=== PATIENT | female | born 1970 | race Caucasian/White ===

== ENCOUNTER 2017-02-24 08:44 | Emergency (ER) | payer BC ==
[~2017-02-24 08:44] MED LIST: ALPR0.5T PO; ARIP10TA13 PO; ASPI81TA9 PO; AZIT250T6 PO; CITA20TA9 PO; FAMO20TA5 PO; HYDR-971 PO; LEVO125T5 PO; METF500T4 PO; METH36TA5 PO; ONDA4TAB10 PO; PANT40TA3 PO; PHEN16.277 PO; PROM12.56 PO; PROM25SU32 RC; PROP60CA8 PO; TOPI25TA32 PO; erythromycin PO
[2017-02-24 09:21] LABS: BILIRUBIN,URINE NEG (NEG); CLARITY,URINE CLEAR; COLOR,URINE YELLOW; GLUCOSE,URINE NEG (NEG); NITRITE,URINE NEG (NEG); UROBILINOGEN,URINE 0.2 mg/dL (0.2 mg/dL)
[2017-02-24 09:26] LABS: BASO # 0.1 x10^3/uL (0.0-0.2); BASO % 1 % (0-3); EOS # 0.4 x10^3/uL (0.0-0.7); EOS % 3 % (0-3); HEMATOCRIT 40.8 % (36.0-47.0); HEMOGLOBIN 13.1 g/dL (12.0-15.5); LYMPH # 2.2 x10^3/uL (1.0-4.8); LYMPH % 16 % (24-48); MEAN CORPUSCULAR HEMOGLOBIN 26 pg (25-35); MEAN CORPUSCULAR HGB CONC 32 g/dL (31-37); MEAN CORPUSCULAR VOLUME 82 fL (79-100); MONO # 0.6 x10^3/uL (0.0-1.1); MONO % 4 % (0-9); NEUT # 10.2 x10^3uL (1.8-7.7); NEUT % 76 % (31-73); PLATELET COUNT 298 x10^3/uL (140-400); RED BLOOD COUNT 4.99 x10^6/uL (3.50-5.40); RED CELL DISTRIBUTION WIDTH 15.3 % (11.5-14.5); WHITE BLOOD COUNT 13.4 x10^3/uL (4.0-11.0)
[2017-02-24 09:28] LABS: ALK PHOS 68 U/L (46-116); ALT (SGPT) 190 U/L (14-59); AST (SGOT) 101 U/L (15-37); LIPASE 83 U/L (73-393)
[2017-02-24] MEDS ORDERED: METOCLOPRAMIDE HCL 10 MG/2 ML VIAL. IV ONE (09:30)
[2017-02-24] MEDS ORDERED: IV NORMAL SALINE 1,000ML 1,000 ML IV ONE (09:30)
[2017-02-24] MEDS ORDERED: LORAZEPAM 2 MG/ML VIAL IV ONE (09:30)
[2017-02-24] MEDS ORDERED: KETOROLAC 15 MG/ML VIAL. ONE (09:48)
--- NOTE | 2017-02-24 09:48 | RAD ---
PROCEDURE Acute abdomen radiographs. HISTORY Left lower quadrant pain and vomiting for more than 48 hours COMPARISON None available FINDINGS Single-view of the chest and single supine and upright views of the abdomen are submitted. There is no lobar infiltrate, pleural fluid, pneumothorax. No free air is identified. There has been cholecystectomy. Calcifications in the bilateral pelvis are more likely due to phleboliths. There is a small focus of round opacity of the right abdomen although not believed to be in the kidney. There is an overall nonobstructive bowel gas pattern. IMPRESSION There is no infiltrate. There is a nonobstructive bowel gas pattern. Electronically signed by: Kvng Kirkland MD (Feb 24, 2017 09:46:18)
[2017-02-24] MEDS ORDERED: KETOROLAC 15 MG/ML VIAL. IV ONE (10:15)
[2017-02-24 10:30] VITALS: BP 122/72
--- NOTE | 2017-02-24 12:47 | ED.ADGEN ---
Past History Past Medical History: Anxiety, Bipolar, Constipation, Depression, Diabetes, Hypertension, Hypothyroid, Sinusitis, Other Past Surgical History: Cholecystectomy, Hysterectomy, Tonsillectomy, Tubal ligation Smoking: Non-smoker Alcohol Use: None Drug Use: None Adult General HPI HPI Patient is a 46-year-old female presents emergency department complaining of nausea, vomiting, and abdominal pain. Patient has a history of gastroparesis. Her symptoms are consistent with that. She has been using her Zofran and without satisfactory relief. She reports some diarrhea the last 24 hours but denies any fever or chills. Review of Systems Review of Systems Constitutional: Denies fever or chills [] Eyes: Denies change in visual acuity, redness, or eye pain [] HENT: Denies nasal congestion or sore throat [] Respiratory: Denies cough or shortness of breath [] Cardiovascular: No additional information not addressed in HPI [] GI: Denies abdominal pain, nausea, vomiting, bloody stools or diarrhea [] : Denies dysuria or hematuria [] Musculoskeletal: Denies back pain or joint pain [] Integument: Denies rash or skin lesions [] Neurologic: Denies headache, focal weakness or sensory changes [] Endocrine: Denies polyuria or polydipsia [] Current Medications Current Medications Current Medications Medications (Trade) Dose Ordered Sig/Shanita Start Time Stop Time Status Last Admin Dose Admin Ketorolac Tromethamine (Toradol) 15 mg 1X ONCE 02/24/17 10:15 02/24/17 10:17 DC 02/24/17 09:50 15 MG Lorazepam (Ativan) 1 mg 1X ONCE 02/24/17 09:30 02/24/17 09:31 DC 02/24/17 09:15 1 MG Metoclopramide HCl (Reglan) 10 mg 1X ONCE 02/24/17 09:30 02/24/17 09:31 DC 02/24/17 09:15 10 MG Sodium Chloride (Iv Sodium Chloride 0.9% 1,000ml) 1,000 ml @ 1,000 mls/hr 1X ONCE 02/24/17 09:30 02/24/17 10:29 DC 02/24/17 09:15 1,000 MLS/HR Allergies Allergies Allergies Coded Allergies Type Severity Reaction Last Updated Verified Penicillins Allergy Unknown Swelling 09/30/14 No Physical Exam Physical Exam Constitutional: Well developed, well nourished, no acute distress, non-toxic appearance. [] HENT: Normocephalic, atraumatic, bilateral external ears normal, oropharynx moist, no oral exudates, nose normal. [] Eyes: PERRLA, EOMI, conjunctiva normal, no discharge. [] Neck: Normal range of motion, no tenderness, supple, no stridor. [] Cardiovascular:Heart rate regular rhythm, no murmur [] Lungs & Thorax: Bilateral breath sounds clear to auscultation [] Abdomen: Bowel sounds normal, soft, epigastric tenderness palpation without peritoneal signs, no masses, no pulsatile masses. [] Skin: Warm, dry, no erythema, no rash. [] Back: No tenderness, no CVA tenderness. [] Extremities: No tenderness, no cyanosis, no clubbing, ROM intact, no edema. [] Neurologic: Alert and oriented X 3, normal motor function, normal sensory function, no focal deficits noted. [] Psychologic: Affect normal, judgement normal, mood normal. [] Current Patient Data Vital Signs Vital Signs Date Time Temp Pulse Resp B/P Pulse Ox O2 Delivery O2 Flow Rate FiO2 02/24/17 08:47 98.4 90 18 96 Room Air Lab Results Laboratory Tests Test 02/24/17 08:58 02/24/17 09:00 Urine Collection Type Unknown Urine Color Yellow Urine Clarity Clear Urine pH 5.5 Urine Specific [place] 1.020 Urine Protein 30 mg/dl (NEG-TRACE) Urine Glucose (UA) Negmg/dL (NEG) Urine Ketones (Stick) Negmg/dL (NEG) Urine Blood Neg (NEG) Urine Nitrite Neg (NEG) Urine Bilirubin Neg (NEG) Urine Urobilinogen Dipstick 0.2mg/dL (0.2 mg/dL) Urine Leukocyte Esterase Neg (NEG) White Blood Count 13.4x10^3/uL (4.0-11.0) H Red Blood Count 4.99x10^6/uL (3.50-5.40) Hemoglobin 13.1g/dL (12.0-15.5) Hematocrit 40.8% (36.0-47.0) Mean Corpuscular Volume 82fL (79-100) Mean Corpuscular Hemoglobin 26pg (25-35) Mean Corpuscular Hemoglobin Concent 32g/dL (31-37) Red Cell Distribution Width 15.3% (11.5-14.5) H Platelet Count 298x10^3/uL (140-400) Neutrophils (%) (Auto) 76% (31-73) H Lymphocytes (%) (Auto) 16% (24-48) L Monocytes (%) (Auto) 4% (0-9) Eosinophils (%) (Auto) 3% (0-3) Basophils (%) (Auto) 1% (0-3) Neutrophils # (Auto) 10.2x10^3uL (1.8-7.7) H Lymphocytes # (Auto) 2.2x10^3/uL (1.0-4.8) Monocytes # (Auto) 0.6x10^3/uL (0.0-1.1) Eosinophils # (Auto) 0.4x10^3/uL (0.0-0.7) Basophils # (Auto) 0.1x10^3/uL (0.0-0.2) Aspartate Amino Transferase (AST) 101U/L (15-37) H Alanine Aminotransferase (ALT) 190U/L (14-59) H Alkaline Phosphatase 68U/L (46-116) Lipase 83U/L (73-393) EKG EKG [] Radiology/Procedures Radiology/Procedures PROCEDURE Acute abdomen radiographs. HISTORY Left lower quadrant pain and vomiting for more than 48 hours COMPARISON None available FINDINGS Single-view of the chest and single supine and upright views of the abdomen are submitted. There is no lobar infiltrate, pleural fluid, pneumothorax. No free air is identified. There has been cholecystectomy. Calcifications in the bilateral pelvis are more likely due to phleboliths. There is a small focus of round opacity of the right abdomen although not believed to be in the kidney. There is an overall nonobstructive bowel gas pattern. IMPRESSION There is no infiltrate. There is a nonobstructive bowel gas pattern. Electronically signed by: Kvng Spear MD (Feb 24, 2017 09:46:18) DICTATED AND SIGNED BY: KAYDEN SPEAR MD DATE: 02/24/17 0946 CC: NATALEE BENITO MD; CHELY HUITRON MD ~ [] Course & Med Decision Making Course & Med Decision Making Pertinent Labs and Imaging studies reviewed. (See chart for details) The patient received Reglan, Ativan, and Toradol here in emergency Department with good effect. Labs and x-ray were reassuring. Patient was discharged home with prescription for Reglan. She was also given supportive care and follow-up instructions. She will return emergency department sooner she develops new or worsening symptoms. [] Final Impression Final Impression Gastroparesis [] Problems: Dragon Disclaimer Dragon Disclaimer This electronic medical record was generated, in whole or in part, using a voice recognition dictation system. NATALEE BENITO MD Feb 24, 2017 12:47
[2017-02-24 13:42] LABS: HEMOGLOBIN ISTAT 14.3 gm/dL; POTASSIUM ISTAT 4.2 mmol/L (3.5-5.0)
== END 2017-02-24 11:07 | disposition home or self-care (01) ==
LOC: ER 08:44
DX: K31.84 Gastroparesis (principal); E03.9 Hypothyroidism, unspecified; E11.9 Type 2 diabetes mellitus without complications; I10 Essential (primary) hypertension; Z90.49 Acquired absence of other specified parts of digestive tract; Z90.710 Acquired absence of both cervix and uterus; Z98.51 Tubal ligation status; Z88.0 Allergy status to penicillin
CPT/HCPCS: 36415; 74022; 80047; 81003; 83690; 84075; 84450; 84460; 85027; 96361; 96374; 96375; 99285; J1885; J2060; J2765; J7030

== ENCOUNTER 2017-04-04 21:53 | Emergency (ER) | payer BC ==
[~2017-04-04] VITALS: Ht 157.5 cm; Wt 81.2 kg
[~2017-04-04 21:53] MED LIST changes: -ARIP10TA13 PO; +ARIP10TA9 PO; +ASPI-612 PO; -ASPI81TA9 PO; -TOPI25TA32 PO; +TOPI25TA52 PO
[2017-04-04] MEDS ORDERED: MORP15TA PO (22:59)
--- NOTE | 2017-04-04 22:59 | PHYS DOC ---
Past History Past Medical History: Anxiety, Bipolar, Constipation, Depression, Diabetes, Hypertension, Hypothyroid, Sinusitis, Other Past Surgical History: Cholecystectomy, Hysterectomy, Tonsillectomy, Tubal ligation Smoking: Non-smoker Alcohol Use: None Drug Use: None Adult General Chief Complaint Chief Complaint: ANKLE PROBLEM HPI HPI 47-year-old female presenting to the emergency department with left knee pain and left ankle pain. She reports being in a sheth recently and is today she slipped and injured her ankle. She placed the injury in a brace and was trying to soak it in a pool when she fell a second time and injured her left knee. Pain is sharp moderate nonradiating and without alleviating factors. She placed in a brace which improved her pain minimally. She denies any associated symptoms. Review of systems is negative for chest pain shortness of breath. She denies hip pain. She denies syncope or loss of consciousness head injury or neck pain. All other review of systems is negative unless otherwise noted in history of present illness. Review of Systems Review of Systems SEE ABOVE. Allergies Allergies Allergies Coded Allergies Type Severity Reaction Last Updated Verified Penicillins Allergy Intermediate Swelling 04/04/17 No ketorolac Allergy Intermediate 04/04/17 Yes Physical Exam Physical Exam Constitutional: Well developed, well nourished, no acute distress, non-toxic appearance. HENT: Normocephalic, atraumatic, bilateral external ears normal, oropharynx moist, no oral exudates, nose normal. [] Eyes: PERRLA, EOMI, conjunctiva normal, no discharge. [] Neck: Normal range of motion, no tenderness, supple, no stridor. Cardiovascular:Heart rate regular rhythm, no murmur [] Lungs & Thorax: Bilateral breath sounds clear to auscultation [] Abdomen: Bowel sounds normal, soft, no tenderness, no masses, no pulsatile masses. Skin: Warm, dry, no erythema, no rash. Back: No tenderness, no CVA tenderness. [] Extremities: Left knee is normal in color without erythema. Mild effusion present. Mild tenderness in the medial portion of the knee. Otherwise no lacerations. Skin is intact. The left ankle has mild swelling with tenderness palpation over the lateral malleolus. No ecchymosis. No lacerations. Skin is intact. 2 second cap refill distally with palpable pulse. Normal motor and sensory function of the foot. Otherwise remainder of the extremities are nontender with normal range of motion and atraumatic. Neurologic: Alert and oriented X 3, normal motor function, normal sensory function, no focal deficits noted. Psychologic: Affect normal, judgement normal, mood normal. [] EKG EKG [] Radiology/Procedures Radiology/Procedures X-rays of the left knee and ankle were reviewed by myself and showed no obvious fracture. There is a small lucency just next to the lateral malleolus on the ankle x-ray that could suggest a small avulsion fracture. [] Course & Med Decision Making Course & Med Decision Making Pertinent Labs and Imaging studies reviewed. (See chart for details) [] 47-year-old female presenting with left knee pain and left ankle pain. X- rays obtained. Knee x-ray unremarkable. Left ankle x-ray possible avulsion fracture. Patient was placed in [place] wrap and a knee immobilizer. Crutches were given for ambulation assistance. Pain medications prescribed. Patient to follow up with PCP. The patient was then discharged home in stable condition to follow up with their primary care physician over the next 2-3 days. They were to return if their symptoms worsened or if they were concerned for any reason. Face -to-face discharge instructions and return precautions were given. Patient's questions were answered to their satisfaction. Patient is comfortable plan. Dragon Disclaimer Dragon Disclaimer This chart was dictated in whole or in part using Voice Recognition software in a busy, high-work load, and often noisy Emergency Department environment. It may contain unintended and wholly unrecognized errors or omissions. Departure Departure: Impression: Primary Impression: Left knee pain Additional Impression: Left ankle pain Disposition: 01 HOME, SELF-CARE Condition: STABLE Referrals: CHELY HUITRON MD (PCP) Patient Instructions: Ankle Sprain, Knee Bracing, Knee Pain Additional Instructions: Thank you for allowing us to participate in your care today. Followup with your primary care physician in 3 days if your symptoms do not improve. If you do not have a primary care provider you can ask for a list of our primary care providers. Return to the emergency department you have any new or concerning findings. This should be evaluated by the primary care physician and any necessary consulting services for continued management within a few days after discharge. Return to emergency room if you have any new or concerning symptoms including but not limited to fever, chills, nausea, vomiting, intractable pain, any new rashes, chest pain, shortness of air, uncontrolled bleeding, difficulty breathing, and/or vision loss. You may have been prescribed medication that can change in your level of thinking and ability to operate machinery. These medications include hydrocodone and Ativan. Also, Benadryl has been known to do this as well. Be sure to check with your pharmacist and ask if the medications you've prescribed can affect your level of consciousness. I recommend not operating heavy machinery or driving while on medication such as these. Scripts Morphine Sulfate (MORPHINE SULFATE) 15 Mg Tablet 1 TAB PO PRN Q8HRS Y for SEVERE PAIN, #8 TAB Be careful as this medication may make you sleepy or drowsy. Do not drive or operate heavy machinery on this medication. Be sure to ask the pharmacist about other side effects that can exist such as constipation. Prov: ANA LUISA CASTRO MD 04/04/17 Problem Qualifiers Primary Impression: Left knee pain Chronicity: acute Qualified Codes: M25.562 - Pain in left knee Additional Impression: Left ankle pain Chronicity: acute Qualified Codes: M25.572 - Pain in left ankle and joints of left foot ANA LUISA CASTRO MD April 04, 2017 22:59
[2017-04-04 23:03] VITALS: BP 138/96
--- NOTE | 2017-04-05 07:44 | RAD ---
Left ankle, 3 views, 04/04/2017: History: Injury, pain There is a small calcific density at the tip of the medial malleolus. Its margins are smooth and appear well corticated. This is probably an old nonunited fracture fragment. No definite acute fracture or dislocation is seen. There is mild diffuse soft tissue swelling about the ankle. IMPRESSION: Small fracture fragment at the tip of the medial malleolus which is probably old.
--- NOTE | 2017-04-05 07:49 | RAD ---
Left knee, 3 views, 04/04/2017: History: Injury, knee pain No fracture or dislocation is identified. The joint space is well-preserved. IMPRESSION: No acute bony abnormality is detected.
== END 2017-04-04 23:00 | disposition home or self-care (01) ==
LOC: ER 21:59
DX: M25.562 Pain in left knee (principal); M25.572 Pain in left ankle and joints of left foot; I10 Essential (primary) hypertension; E03.9 Hypothyroidism, unspecified; E11.9 Type 2 diabetes mellitus without complications; F31.9 Bipolar disorder, unspecified; Z88.0 Allergy status to penicillin; Z88.8 Allergy status to other drugs, medicaments and biological substances; W01.0XXA Fall on same level from slipping, tripping and stumbling without subsequent striking against object, initial encounter; Y93.89 Activity, other specified; Y99.8 Other external cause status; Y92.89 Other specified places as the place of occurrence of the external cause
CPT/HCPCS: 29505; 73562; 73610; 99284-25

== ENCOUNTER 2017-07-19 17:43 | Emergency (ER) | payer BC ==
[~2017-07-19] VITALS: Ht 157.5 cm; Wt 81.4 kg
[~2017-07-19 17:43] MED LIST changes: +MORP15TA PO
[2017-07-19] MEDS ORDERED: IV NORMAL SALINE 1,000ML 1,000 ML IV SCH (18:04)
--- NOTE | 2017-07-19 18:06 | PHYS DOC ---
Past History Past Medical History: Diabetes, High Cholesterol, Hypertension, Hypothyroid Past Surgical History: Cholecystectomy, Hysterectomy Smoking: Non-smoker Alcohol Use: None Drug Use: None Adult General Chief Complaint Chief Complaint: ABDOMINAL PAIN HPI HPI Patient is a 47 year old female who presents with recurrent abdominal pain and vomiting. She has "gastroparesis" for which she vomits daily. She also has a baseline abdominal pain that constant. However yesterday it increased. She's had green diarrhea for 2 weeks. No recent travel. She denies marijuana use. No fever or chills. Review of Systems Review of Systems Constitutional: Denies fever or chills Eyes: Denies change in visual acuity, redness, or eye pain HENT: Denies nasal congestion or sore throat Respiratory: Denies cough or shortness of breath Cardiovascular: No chest pain GI: Daily abdominal pain, nausea, vomiting, No bloody stools. : Denies dysuria or hematuria Musculoskeletal: Denies back pain or joint pain Integument: Denies rash or skin lesions Neurologic: Denies headache, focal weakness or sensory changes Allergies Allergies Allergies Coded Allergies Type Severity Reaction Last Updated Verified Penicillins Allergy Intermediate Swelling 04/04/17 No ketorolac Allergy Intermediate 04/04/17 Yes Physical Exam Physical Exam Constitutional: Well developed, well nourished, no acute distress, non-toxic appearance. Rolling around in the bed yelling out in pain. HENT: Normocephalic, atraumatic, bilateral external ears normal, oropharynx moist, no oral exudates, nose normal. Eyes: PERRLA, EOMI, conjunctiva normal, no discharge. Neck: Normal range of motion, no tenderness, supple, no stridor. Cardiovascular:Heart rate regular rhythm, no murmur Lungs & Thorax: Bilateral breath sounds clear to auscultation Abdomen: Bowel sounds normal, soft, minimal tenderness to palpation, no masses, no pulsatile masses. Skin: Warm, dry, no erythema, no rash. Back: No tenderness, no CVA tenderness. Extremities: No tenderness, no cyanosis, no clubbing, ROM intact, no edema. Neurologic: Alert and oriented X 3, normal motor function, normal sensory function, no focal deficits noted. Psychologic: Affect normal, judgement normal, mood normal. Current Patient Data Vital Signs Vital Signs Date Time Temp Pulse Resp B/P (MAP) Pulse Ox O2 Delivery O2 Flow Rate FiO2 07/19/17 17:52 98.4 65 20 99 Room Air Lab Results Laboratory Tests Test 07/19/17 18:13 07/19/17 18:20 Urine Collection Type Unknown Urine Color Yellow Urine Clarity Clear Urine pH 5.5 Urine Specific [place] 1.015 Urine Protein Neg (NEG-TRACE) Urine Glucose (UA) Neg mg/dL (NEG) Urine Ketones (Stick) Neg mg/dL (NEG) Urine Blood Trace (NEG) Urine Nitrite Neg (NEG) Urine Bilirubin Neg (NEG) Urine Urobilinogen Dipstick 0.2 mg/dL (0.2 mg/dL) Urine Leukocyte Esterase Neg (NEG) Urine RBC Occ /HPF (0-2) Urine WBC Occ /HPF (0-4) Urine Squamous Epithelial Cells Many /LPF Urine Bacteria Few /HPF (0-FEW) Urine Mucus Slight /LPF White Blood Count 10.8 x10^3/uL (4.0-11.0) Red Blood Count 4.85 x10^6/uL (3.50-5.40) Hemoglobin 13.0 g/dL (12.0-15.5) Hematocrit 39.4 % (36.0-47.0) Mean Corpuscular Volume 81 fL (79-100) Mean Corpuscular Hemoglobin 27 pg (25-35) Mean Corpuscular Hemoglobin Concent 33 g/dL (31-37) Red Cell Distribution Width 16.2 % (11.5-14.5) Platelet Count 258 x10^3/uL (140-400) Neutrophils (%) (Auto) 61 % (31-73) Lymphocytes (%) (Auto) 31 % (24-48) Monocytes (%) (Auto) 4 % (0-9) Eosinophils (%) (Auto) 3 % (0-3) Basophils (%) (Auto) 1 % (0-3) Neutrophils # (Auto) 6.6 x10^3uL (1.8-7.7) Lymphocytes # (Auto) 3.4 x10^3/uL (1.0-4.8) Monocytes # (Auto) 0.4 x10^3/uL (0.0-1.1) Eosinophils # (Auto) 0.3 x10^3/uL (0.0-0.7) Basophils # (Auto) 0.1 x10^3/uL (0.0-0.2) Sodium Level 139 mmol/L (136-145) Potassium Level 3.7 mmol/L (3.5-5.1) Chloride Level 100 mmol/L (98-107) Carbon Dioxide Level 29 mmol/L (21-32) Anion Gap 10 (6-14) Blood Urea Nitrogen 6 mg/dL (7-20) Creatinine 0.8 mg/dL (0.6-1.0) Estimated GFR (Cockcroft-Gault) 77.2 BUN/Creatinine Ratio 8 (6-20) Glucose Level 93 mg/dL (70-99) Calcium Level 9.8 mg/dL (8.5-10.1) Total Bilirubin 0.6 mg/dL (0.2-1.0) Aspartate Amino Transf (AST/SGOT) 93 U/L (15-37) Alanine Aminotransferase (ALT/SGPT) 116 U/L (14-59) Alkaline Phosphatase 73 U/L (46-116) Total Protein 7.7 g/dL (6.4-8.2) Albumin 3.9 g/dL (3.4-5.0) Albumin/Globulin Ratio 1.0 (1.0-1.7) Lipase 68 U/L (73-393) Course & Med Decision Making Course & Med Decision Making Reviewed prior records. My differential for abdominal pain includes but is not limited to appendicitis; cholelithiasis or cholecystitis; renal stones; ureterolithiasis; pancreatitis; urinary tract infection; bowel obstruction; irritable bowel. IV is established. The last visit she did receive Toradol but listed as an allergy here. There is no mention of allergic reaction the last chart however. She was dosed with Reglan IV along with Benadryl and Dilaudid. At 1930PM: patient is resting comfortably. She is in no distress. Vital signs are normal. Repeat exam with no evidence of acute surgical abdomen. We'll discharge home with her ride. Wrote for Phenergan suppositories as she has nothing to take per rectum when she is vomiting every day. Dragon Disclaimer Dragon Disclaimer This chart was dictated in whole or in part using Voice Recognition software in a busy, high-work load, and often noisy Emergency Department environment. It may contain unintended and wholly unrecognized errors or omissions. Departure Departure: Impression: Primary Impression: Abdominal pain Additional Impression: Cyclical vomiting Disposition: 01 HOME, SELF-CARE Condition: GOOD Referrals: CHELY HUITRON MD (PCP) Patient Instructions: Cyclic Vomiting Syndrome Scripts Promethazine HCl (Phenergan) 25 Mg Supp.rect 25 MG RC PRN Q6-8HRS Y for VOMITING, #14 SUPP.RECT Prov: CAR HULL MD 07/19/17 Problem Qualifiers Primary Impression: Abdominal pain Abdominal location: generalized Qualified Codes: R10.84 - Generalized abdominal pain Additional Impression: Cyclical vomiting Vomiting Intractability: intractable Nausea presence: with nausea Qualified Codes: G43.A1 - Cyclical vomiting, intractable CAR HULL MD Jul 19, 2017 18:06
[2017-07-19] MEDS ORDERED: ONDANSETRON PF 4 MG/2 ML VIAL. IV ONE (18:30)
[2017-07-19] MEDS ORDERED: METOCLOPRAMIDE HCL 10 MG/2 ML VIAL. IV ONE (18:45)
[2017-07-19] MEDS ORDERED: HYDROmorphone PF 1 MG/ML DISP.SYRIN IV ONE (18:45)
[2017-07-19] MEDS ORDERED: diphenhydrAMINE 50 MG/ML VIAL IVP ONE (18:45)
[2017-07-19 18:47] LABS: BASO # 0.1 x10^3/uL (0.0-0.2); BASO % 1 % (0-3); EOS # 0.3 x10^3/uL (0.0-0.7); EOS % 3 % (0-3); HEMATOCRIT 39.4 % (36.0-47.0); LYMPH # 3.4 x10^3/uL (1.0-4.8); LYMPH % 31 % (24-48); MEAN CORPUSCULAR HEMOGLOBIN 27 pg (25-35); MEAN CORPUSCULAR HGB CONC 33 g/dL (31-37); MEAN CORPUSCULAR VOLUME 81 fL (79-100); MONO # 0.4 x10^3/uL (0.0-1.1); MONO % 4 % (0-9); NEUT # 6.6 x10^3uL (1.8-7.7); NEUT % 61 % (31-73); PLATELET COUNT 258 x10^3/uL (140-400); RED BLOOD COUNT 4.85 x10^6/uL (3.50-5.40); RED CELL DISTRIBUTION WIDTH 16.2 % (11.5-14.5); WHITE BLOOD COUNT 10.8 x10^3/uL (4.0-11.0)
[2017-07-19 18:59] LABS: ALBUMIN 3.9 g/dL (3.4-5.0); CALCIUM 9.8 mg/dL (8.5-10.1); CREATININE 0.8 mg/dL (0.6-1.0); GFR 77.2; POTASSIUM 3.7 mmol/L (3.5-5.1); TOTAL BILIRUBIN 0.6 mg/dL (0.2-1.0); TOTAL PROTEIN 7.7 g/dL (6.4-8.2)
[2017-07-19 19:13] LABS: BILIRUBIN,URINE NEG (NEG); CLARITY,URINE CLEAR; COLOR,URINE YELLOW; GLUCOSE,URINE NEG (NEG); NITRITE,URINE NEG (NEG); UROBILINOGEN,URINE 0.2 mg/dL (0.2 mg/dL)
[2017-07-19 19:14] LABS: BACTERIA,URINE FEW /HPF (0-FEW); RBC,URINE OCC /HPF (0-2); SQUAMOUS EPITHELIAL CELL,UR MANY /LPF; WBC,URINE OCC /HPF (0-4)
[2017-07-19 19:26] VITALS: BP 126/77
[2017-07-19] MEDS ORDERED: PROM25SU32 RC (19:42)
--- NOTE | 2017-07-20 08:12 | RAD ---
Exam performed: Acute abdominal series. Clinical indication: Nausea and vomiting, history of gastroparesis Date of Service: 07/19/17. Comparison: None available Findings: One view chest radiograph reveal a normal cardiomediastinal contour. The lungs are clear. Evidence of pleural fluid or free subdiaphragmatic air is absent. The bowel pattern is essentially unremarkable with mildly prominent small bowel loops in the left mid abdomen. Previous cholecystectomy No pathologic calcification or organomegaly is seen. Impression: No acute cardiopulmonary process seen. Mildly prominent small bowel loops in the left mid abdomen related to mild ileus pattern secondary to vomiting. No definite evidence of obstruction seen.
[2017-07-24] MEDS ORDERED: ARIP5TAB13 PO (14:17)
[2017-07-24] MEDS ORDERED: ESCITALOPRAM OX10 MG PO (14:17)
== END 2017-07-19 19:50 | disposition home or self-care (01) ==
LOC: ER 17:43
DX: R10.84 Generalized abdominal pain (principal); G43.A0 Cyclical vomiting, in migraine, not intractable; E03.9 Hypothyroidism, unspecified; I10 Essential (primary) hypertension; E11.9 Type 2 diabetes mellitus without complications; E78.00 Pure hypercholesterolemia, unspecified; Z90.49 Acquired absence of other specified parts of digestive tract; Z90.710 Acquired absence of both cervix and uterus; Z88.0 Allergy status to penicillin; Z88.8 Allergy status to other drugs, medicaments and biological substances
CPT/HCPCS: 36415; 74022; 80053; 81001; 83690; 85025; 96361; 96374; 96375; 99285; J1170; J1200; J2405; J2765; J7030

== ENCOUNTER 2017-07-22 11:39 | Inpatient (IN) | payer BC ==
[~2017-07-22] VITALS: Ht 157.5 cm; Wt 79.9 kg
[2017-07-22] MEDS ORDERED: fentaNYL PF 100 MCG/2 ML VIAL ONE (12:40)
[2017-07-22] MEDS ORDERED: ONDANSETRON PF 4 MG/2 ML VIAL. ONE (12:40)
[2017-07-22] MEDS ORDERED: HYDROmorphone PF 2 MG/ML VIAL ONE (13:33)
[2017-07-22] MEDS ORDERED: IV NORMAL SALINE 1,000ML 1,000 ML ONE (13:53)
[2017-07-22] MEDS ORDERED: HYDROmorphone PF 2 MG/ML VIAL IM ONE (14:00)
[2017-07-22] MEDS: IV NORMAL SALINE 1,000ML 1,000 ML IV SCH (14:15)
[2017-07-22 14:25] LABS: BASO # 0.1 x10^3/uL (0.0-0.2); BASO % 1 % (0-3); EOS # 0.3 x10^3/uL (0.0-0.7); EOS % 3 % (0-3); HEMATOCRIT 36.6 % (36.0-47.0); LYMPH # 2.9 x10^3/uL (1.0-4.8); LYMPH % 32 % (24-48); MEAN CORPUSCULAR HEMOGLOBIN 26 pg (25-35); MEAN CORPUSCULAR HGB CONC 33 g/dL (31-37); MEAN CORPUSCULAR VOLUME 81 fL (79-100); MONO # 0.5 x10^3/uL (0.0-1.1); MONO % 6 % (0-9); NEUT # 5.4 x10^3uL (1.8-7.7); NEUT % 58 % (31-73); PLATELET COUNT 240 x10^3/uL (140-400); RED BLOOD COUNT 4.53 x10^6/uL (3.50-5.40); RED CELL DISTRIBUTION WIDTH 15.7 % (11.5-14.5); WHITE BLOOD COUNT 9.2 x10^3/uL (4.0-11.0)
[2017-07-22 14:42] LABS: ALBUMIN 3.7 g/dL (3.4-5.0); ALBUMIN/GLOBULIN RATIO 1.1 (1.0-1.7); CALCIUM 9.3 mg/dL (8.5-10.1); CREATININE 0.7 mg/dL (0.6-1.0); GFR 90.1; POTASSIUM 3.9 mmol/L (3.5-5.1); TOTAL BILIRUBIN 0.5 mg/dL (0.2-1.0); TOTAL PROTEIN 7.2 g/dL (6.4-8.2)
[2017-07-22] MEDS: diphenhydrAMINE 50 MG/ML VIAL IVP PRN ×2 (15:15→20:04)
[2017-07-22 15:29] VITALS: BP 148/72
[2017-07-22] MEDS ORDERED: IOHEXOL 300 MG/ML 75 ML VIAL. IV ONE (15:30)
[2017-07-22 15:45] VITALS: BP 157/76
[2017-07-22] MEDS ORDERED: ATOR10TA60 PO (15:51)
[2017-07-22] MEDS ORDERED: PANT40TA3 PO (15:51)
[2017-07-22] MEDS ORDERED: MELO15TA23 PO (15:51)
--- NOTE | 2017-07-22 16:03 | HP ---
ADMIT DATE: 07/22/2017 HISTORY OF PRESENT ILLNESS: The patient is a 47-year-old female patient who was referred directly from Dr. Reed's office with a complaint of severe epigastric and left upper quadrant pain associated with recurrent bouts of nausea, vomiting that has been going on for the last 5 days, although the pain is chronic and has been there for the last 3 years according to her. She was evaluated a few days ago in the Emergency Room and was discharged home. At that time, her lab works were all within normal range, apart from slightly elevated liver enzymes. PAST MEDICAL HISTORY: Significant for type 2 diabetes mellitus, hypothyroidism, hypertension, diabetic gastroparesis, bipolar disorder with depression and anxiety, attention deficit hyperactivity syndrome, migraine headache without aura, nonalcoholic fatty liver, restless leg syndrome. PAST SURGICAL HISTORY: Significant for cholecystectomy, tonsillectomy, adenoidectomy, bilateral tubal ligation, pediatric eye surgery. FAMILY HISTORY: Positive for myocardial infarction, triple bypass in her father who apparently is known to have COPD, diabetes mellitus and hypertension. Her mother is alive at age of 66 and she has epilepsy. Her mother also is known to have rheumatoid arthritis and her sister has ovarian cancer. Two brothers are younger and healthy. SOCIAL HISTORY: She lives with her boyfriend for the last 9 years. She has 2 sons and 2 daughters. She does not smoke, drink alcohol or use any recreational drugs. She used to work in [employer]. She apparently is known to have bipolar disorder with suicide attempts before. REVIEW OF SYSTEMS: As per history of present illness. ALLERGIES: She is allergic to LISINOPRIL and PENICILLIN. MEDICATIONS: She is currently on following medications: Ondansetron 4 mg oral disintegrating tablet 1 tablet every 6 hours as needed for nausea and vomiting; Xanax 0.5 mg 1-2 tablets 3 times a day; meloxicam 15 mg daily; Celexa 20 mg once a day; levothyroxine 25 mcg once a day; metformin 1000 mg p.o. b.i.d.; propranolol 120 mg extended release 1 tablet at bedtime, Protonix 40 mg twice a day. She is also on atorvastatin 10 mg at bedtime. PHYSICAL EXAMINATION: GENERAL: On arrival, she was writhing in pain, which is mostly in the epigastric and left upper quadrant. However, there is no pallor, jaundice, cyanosis. No lymphadenopathy and no thyromegaly. No jugular venous distention. No lower limb edema. VITAL SIGNS: Her heart rate was 83, blood pressure was 148/72, temperature was 98.4, respiratory rate was 16, and oxygen saturation was 98% on room air. HEAD, EYES, EARS, NOSE and THROAT: Showed normocephalic, atraumatic. NECK: Supple. HEART: Showed normal first and second heart sounds with no gallop, rub or murmur. CHEST: Clear to auscultation. No crepitation or rhonchi. ABDOMEN: Distended with tenderness mostly in the left upper quadrant and epigastric area. There is no guarding or rigidity. No organomegaly. Hernial orifices intact. Bowel sounds normal. NEUROLOGIC: She was lethargic, but arousable. All her cranial nerves intact. EXTREMITIES: She moves extremities without difficulty. SUMMARY: So basically, this is a 47-year-old female patient, was admitted with epigastric and left upper quadrant pain that has been going on for few days. She was seen actually on 07/19/2017 at the Emergency Room and was admitted directly from Dr. Reed's office. She is known to have type 2 diabetes mellitus, nonalcoholic fatty liver, type 2 diabetes, diabetic gastroparesis, migraine headaches as well as bipolar disorder with suicidal attempts before. PLAN: My plan is to check her labs including CBC, CMP, serum lipase. Start her on IV fluids in the form of D5 half-normal and I will arrange for her to have a CT scan of the abdomen and pelvis with oral and IV contrast and we will decide on further management accordingly. We will obviously monitor her blood sugar and if tolerated, start her on a clear liquid diet and advance diet as tolerated. ASAEL EYAGER MD DR: FALLON/anne JOB#: [id number] / [id number]
[2017-07-22] MEDS: HYDROmorphone PF 1 MG/ML DISP.SYRIN IV PRN ×2 (16:15→20:03)
--- NOTE | 2017-07-22 16:28 | RAD ---
CT scan of the abdomen and pelvis with contrast 07/22/2017 Clinical history: Left upper quadrant abdominal pain with history of gastroparesis. Technique: After the intravenous administration of 75 cc of Omnipaque 300 only, contiguous, 3 mm axial sections were obtained through the abdomen and pelvis. One or more of the following individualized dose reduction techniques were utilized for this study: 1. Automated exposure control. 2. Adjustment of the mA and/or kV according to patient size. 3. Use of iterative reconstruction technique. Findings: Comparison study is dated 03/14/2016. Images through the lung bases are within normal limits. The liver is mildly enlarged measuring 20 cm in length. Decreased attenuation of the liver parenchyma is seen consistent with mild fatty infiltration. The spleen, pancreas, adrenal glands and kidneys are within normal limits. The abdominal aorta tapers normally. Surgical clips are seen within the gallbladder fossa consistent with a cholecystectomy. No free fluid or free air is seen within the abdomen. There is no evidence of bowel obstruction. The stomach is not distended. The appendix is well visualized and is within normal limits. Images through the pelvis demonstrate the urinary bladder distended with urine. Calcifications are seen within the pelvis consistent with phleboliths. No free fluid is seen. Minimal S shaped curvature of the thoracolumbar spine is noted. Impression: No acute abnormality is seen.
[2017-07-22] MEDS: ONDANSETRON PF 4 MG/2 ML VIAL. IV PRN (16:41)
[2017-07-22 19:49] VITALS: BP 173/74
--- NOTE | 2017-07-22 21:34 | PDOC ---
Exam Lon Demential Exam: Lon Note: Please also refer to the separate dictated note~for this date of service dictated separately.~Patient seen individually. Discussed the patient with Nursing staff reviewed the chart.~Reviewed interim history and current functioning. Reviewed vital signs,~Labs/ Radiology~and current medications noted below. Continue current treatment with the changes noted in the dictated addendum note Assessment: Vital Signs: Vital Signs Date Time Temp Pulse Resp B/P (MAP) Pulse Ox O2 Delivery O2 Flow Rate FiO2 07/22/17 20:40 18 95 Room Air 07/22/17 19:49 98.3 62 173/74 (107) I&O Intake and Output 07/23/17 06:59 Intake Total 497 ml Balance 497 ml Intake Oral 0 ml IV Total 497 ml Labs: Laboratory Tests Test 07/22/17 12:56 07/22/17 14:05 07/22/17 21:05 Glucose (Fingerstick) 148 mg/dL (70-99) H 97 mg/dL (70-99) White Blood Count 9.2 x10^3/uL (4.0-11.0) Red Blood Count 4.53 x10^6/uL (3.50-5.40) Hemoglobin 12.0 g/dL (12.0-15.5) Hematocrit 36.6 % (36.0-47.0) Mean Corpuscular Volume 81 fL (79-100) Mean Corpuscular Hemoglobin 26 pg (25-35) Mean Corpuscular Hemoglobin Concent 33 g/dL (31-37) Red Cell Distribution Width 15.7 % (11.5-14.5) H Platelet Count 240 x10^3/uL (140-400) Neutrophils (%) (Auto) 58 % (31-73) Lymphocytes (%) (Auto) 32 % (24-48) Monocytes (%) (Auto) 6 % (0-9) Eosinophils (%) (Auto) 3 % (0-3) Basophils (%) (Auto) 1 % (0-3) Neutrophils # (Auto) 5.4 x10^3uL (1.8-7.7) Lymphocytes # (Auto) 2.9 x10^3/uL (1.0-4.8) Monocytes # (Auto) 0.5 x10^3/uL (0.0-1.1) Eosinophils # (Auto) 0.3 x10^3/uL (0.0-0.7) Basophils # (Auto) 0.1 x10^3/uL (0.0-0.2) Sodium Level 140 mmol/L (136-145) Potassium Level 3.9 mmol/L (3.5-5.1) Chloride Level 104 mmol/L (98-107) Carbon Dioxide Level 31 mmol/L (21-32) Anion Gap 5 (6-14) L Blood Urea Nitrogen 7 mg/dL (7-20) Creatinine 0.7 mg/dL (0.6-1.0) Estimated GFR (Cockcroft-Gault) 90.1 BUN/Creatinine Ratio 10 (6-20) Glucose Level 98 mg/dL (70-99) Calcium Level 9.3 mg/dL (8.5-10.1) Total Bilirubin 0.5 mg/dL (0.2-1.0) Aspartate Amino Transferase (AST) 84 U/L (15-37) H Alanine Aminotransferase (ALT) 133 U/L (14-59) H Alkaline Phosphatase 71 U/L (46-116) Total Protein 7.2 g/dL (6.4-8.2) Albumin 3.7 g/dL (3.4-5.0) Albumin/Globulin Ratio 1.1 (1.0-1.7) Lipase 75 U/L (73-393) Current Medications: Meds: Current Medications Ondansetron HCl (Zofran) 4 mg STK-MED ONCE .ROUTE Last administered on 12:58; Start 07/22/17 at 12:40; Stop 07/22/17 at 12:41; Status DC Fentanyl Citrate (Fentanyl 2ml Vial) 100 mcg STK-MED ONCE .ROUTE Last administered on 07/22/17 12:40; Start 07/22/17 at 12:40; Stop 07/22/17 at 12:41 ; Status DC Hydromorphone HCl (Dilaudid) 2 mg 1X ONCE IM ; Start 07/22/17 at 14:00; Stop at 14:01; Status DC Hydromorphone HCl (Dilaudid) 2 mg STK-MED ONCE .ROUTE Last administered on 07/22 13:36; Start 07/22/17 at 13:33; Stop 07/22/17 at 13:34; Status DC Sodium Chloride 1,000 ml @ As Directed STK-MED ONCE .ROUTE ; Start 07/22/17 at 13:53; Stop 07/22/17 at 13:54; Status DC Sodium Chloride 1,000 ml @ 75 mls/hr [id number] IV Last administered on 14:15; Start 07/22/17 at 14:15 Hydromorphone HCl (Dilaudid) 1 mg PRN Q3HRS PRN IV PAIN Last administered on 20:03; Start 07/22/17 at 15:00 Diphenhydramine HCl (Benadryl) 25 mg PRN Q4HRS PRN IVP ITCHING Last administered on 07/22/17 20:04; Start 07/22/17 at 14:45 Ondansetron HCl (Zofran) 4 mg PRN Q4HRS PRN IV NAUSEA/VOMITING Last administered on 07/22/17 16:41; Start 07/22/17 at 14:45 Iohexol (Omnipaque 300 Mg/ml) 75 ml 1X ONCE IV Last administered on 07/22/17 15:54; Start 07/22/17 at 15:30; Stop 07/22/17 at 15:31; Status DC Active Scripts Active Zofran Odt (Ondansetron) 4 Mg Tab.rapdis 4 Mg PO Q6HRS PRN Reported Atorvastatin Calcium 10 Mg Tablet 10 Mg PO QHS Protonix (Pantoprazole Sodium) 40 Mg Tablet.dr 1 Tab PO DAILY Meloxicam 15 Mg Tablet 1 Tab PO DAILY Xanax (Alprazolam) 0.5 Mg Tablet 0.5 Mg PO TID PRN PRN Metformin Hcl 500 Mg Tablet 2 Tab PO BID RESTART PER PHYSICIAN'S INSTRUCTIONS Celexa (Citalopram Hydrobromide) 20 Mg Tablet 1 Tab PO HS LAST DOSE GIVEN: DATE: YESTERDAY TIME: AT BEDTIME NEXT DOSE DUE: DATE: TODAY TIME: AT BEDTIME Inderal La (Propranolol Hcl) 60 Mg Cap.sa.24h 120 Mg PO HS RESTART PER PHYSICIAN'S INSTRUCTIONS Diagnosis: Problems: (1) Anxiety disorder (2) Major depressive disorder, recurrent episode (3) Impulse control disorder BARAK JUDGE MD Jul 22, 2017 21:34
[2017-07-22] MEDS ORDERED: ALPRAZolam 0.25 MG TABLET PO PRN (21:45)
[2017-07-23 00:05] VITALS: BP 125/78
[2017-07-23] MEDS: diphenhydrAMINE 50 MG/ML VIAL IVP PRN ×2 (00:59→07:25)
[2017-07-23] MEDS: HYDROmorphone PF 1 MG/ML DISP.SYRIN IV PRN ×2 (00:59→07:25)
--- NOTE | 2017-07-23 01:05 | ACF ---
Admission Criteria Forms ABDOMINAL PAIN Clinical Indications for Admission to Inpatient Care ( la posta/check or initial the applicable condition/criteria): Admission is indicated for ANY ONE of the following (1)(2)(3)(4)(5)(6): [ ]I. Surgery needed that cannot be performed on ambulatory basis [ ]II. Peritoneal signs present (eg, rebound tenderness, rigidity) [ ]III. Evaluation requires patient to not eat or drink for extended period ( eg, more than 24 hours). [X ]IV. Inpatient admission required[B] rather than observation care (see Abdominal Pain: Observation Care guideline as appropriate) because of ANY ONE of the following(7)(8)(9): [ ] a) Hemodynamic instability [X ]b) Severe pain requiring acute inpatient management [ ]c) Identification of etiology or finding that requires inpatient care (eg, aortic dissection, free air,bowel ischemia)(10) [ ]d) Absent bowel sounds with complete ileus (11) [ ]e) Signs of intestinal obstruction[C] [ ]f) Suspected toxic megacolon [ ]g) Severe electrolyte abnormalities requiring inpatient care [ ]h) High fever or infection requiring inpatient admission as indicated by ANY ONE of the following (12)(13): [ ]i) Appropriate outpatient or observation care antimicrobial treatment unavailable, not effective, or not feasible [ ]ii) Documented bacteremia [ ]iii) Temperature greater than 104.9 degrees F (40.5 degrees C) (oral) [ ]iv) Temperature greater than 103.1 degrees F (39.5 degrees C) ( oral) or less than 96.8 degrees F (36 degrees C) (rectal) that does not respond to all emergency treatment measures [ ]i) IV fluid required rather than oral rehydration to replace significant ongoing (eg, for greater than 24 hours) losses (greater than 3 L/m2 per day)(14)(15) [ ]j) Percutaneous or open drainage (eg, abscess, biliary tract) procedures [ ]k) Parenteral nutrition regimen that must be implemented on inpatient basis [ ]l) Other condition, treatment, or monitoring requiring inpatient admission Extended stay beyond goal length of stay may be needed for (1)(3)(4)(10)(16): [ ]a) Surgery (e.g., colectomy, revascularization procedure) [ ]b) Persistent abdominal pain with suspected intra-abdominal process [ ]c) Diagnosed condition requiring continued stay (e.g., pancreatitis, complicated diverticulitis) The original [facility] content created by [facility] has been revised. The portions of the content which have been revised are identified through the use of italic text, and [facility] has neither reviewed nor approved the modified material.All other unmodified content is copyright [facility]. Please see references footnoted in the original [facility] edition 2015 Admission Criteria Met?: Yes NERI MENENDEZ Jul 23, 2017 01:05
[2017-07-23] MEDS: ONDANSETRON PF 4 MG/2 ML VIAL. IV PRN ×3 (02:08→12:37)
[2017-07-23] MEDS: IV NORMAL SALINE 1,000ML 1,000 ML IV SCH (02:13)
[2017-07-23 05:47] VITALS: BP 111/56
[2017-07-23 06:50] LABS: BASO % 1 % (0-3); EOS # 0.2 x10^3/uL (0.0-0.7); EOS % 3 % (0-3); HEMATOCRIT 34.8 % (36.0-47.0); HEMOGLOBIN 11.5 g/dL (12.0-15.5); LYMPH # 2.9 x10^3/uL (1.0-4.8); LYMPH % 39 % (24-48); MEAN CORPUSCULAR HEMOGLOBIN 27 pg (25-35); MEAN CORPUSCULAR HGB CONC 33 g/dL (31-37); MEAN CORPUSCULAR VOLUME 81 fL (79-100); MONO # 0.4 x10^3/uL (0.0-1.1); MONO % 5 % (0-9); NEUT # 3.8 x10^3uL (1.8-7.7); NEUT % 52 % (31-73); PLATELET COUNT 197 x10^3/uL (140-400); RED BLOOD COUNT 4.28 x10^6/uL (3.50-5.40); RED CELL DISTRIBUTION WIDTH 16.2 % (11.5-14.5); WHITE BLOOD COUNT 7.3 x10^3/uL (4.0-11.0)
[2017-07-23 08:10] LABS: ALBUMIN 3.3 g/dL (3.4-5.0); CALCIUM 8.4 mg/dL (8.5-10.1); CREATININE 0.8 mg/dL (0.6-1.0); GFR 77.2; POTASSIUM 3.4 mmol/L (3.5-5.1); TOTAL BILIRUBIN 0.6 mg/dL (0.2-1.0); TOTAL PROTEIN 6.6 g/dL (6.4-8.2)
[2017-07-23] MEDS: ARIPiprazole 5 MG TABLET PO SCH (08:29)
[2017-07-23] MEDS: ESCITALOPRAM 10 MG TABLET. PO SCH (08:29)
[2017-07-23] MEDS ORDERED: ESCITALOPRAM 10 MG TABLET. PO SCH (09:00)
[2017-07-23 10:44] VITALS: BP 113/63
[2017-07-23] MEDS ORDERED: ACETAMINOPHEN 500 MG TABLET PO PRN (11:15)
[2017-07-23] MEDS ORDERED: ACETAMINOPHEN 325 MG TABLET PO PRN (11:30)
[2017-07-23] MEDS ORDERED: ASA/APAP/CAFFEINE 250/250/65MG TABLET. PO PRN (13:45)
--- NOTE | 2017-07-23 14:23 | RAD ---
Exam performed: CT scan of the head without contrast. Date of Service: 07/23/17. Comparison: CT head without contrast from 03/11/16. Clinical History: Headache, nausea and vomiting. Technique: Helical acquisitions are obtained from the foramen magnum to the vertex without intravenous administration of contrast. Findings: The ventricles are midline without evidence of dilatation. Normal barrera-white differentiation is maintained. There is no extra axial fluid collection, intraparenchymal hemorrhage or mass lesion. The visualized portions of the orbits, paranasal sinuses and the mastoid air cells appear clear. The calvarium is intact. Impression: 1. No acute intracranial process detected. PQRS Compliance Statement: One or more of the following individualized dose reduction techniques were utilized for this examination: 1. Automated exposure control 2. Adjustment of the mA and/or kV according to patient size 3. Use of iterative reconstruction technique
[2017-07-23] MEDS: POTASSIUM CL 40MEQ D5-0.45NACL 1,000 ML IV SCH (14:52)
[2017-07-23 15:54] VITALS: BP 128/69
--- NOTE | 2017-07-23 18:21 | CONS ---
DATE OF CONSULTATION: 07/22/2017 PSYCHIATRIC CONSULTATION IDENTIFYING DATA: The patient is a 47-year-old female referred by Dr. Arguello on account of worsening symptoms of depression, anxiety, status post overdose on her antihypertensive medications 2 days ago. Apparently following that overdose, family intervened. She was trying to cut her wrist, but family brought her to the ER. She was screened, felt not to be a danger to herself, returned home. She is admitted and is currently in the ICU bed 5, [facility] on account of abdominal pain within the context of her gastroparesis and I have been asked to consult to make recommendations from a psychiatric standpoint for her ongoing symptoms of depression with context of her past history of bipolar disorder. CHIEF COMPLAINT: "I have been in much pain due to my gastroparesis. I get depressed, I did take the overdose, but do not feel suicidal now. I was diagnosed with bipolar disorder in the past, but I do not really have it. I was on treatment for 6 months and then was on Celexa. My psychiatrist later said I do not have bipolar disorder, stopped all the medications, but I do get depressed now." The patient was seen individually evening of 07/22/2017. Discussed with nursing staff, reviewed the chart. The patient's [id number] and others and another family member oval present as well and the patient permitted them to stay during the interview. HISTORY OF PRESENT ILLNESS: The patient was referred directly from Dr. Reed's office with complaint of the epigastric left upper quadrant pain associated with recurrent bouts of nausea, vomiting for about 5 days. The patient reportedly had chronic pain for about 3 years consequent to gastroparesis. She does admit to being depressed, anxious. Denies any current psychotic symptoms, suicidal or homicidal ideation. She does have a history of mood swings, but denies any recent mood swings other than symptoms of depression. No alcohol or drug abuse history noted. PAST PSYCHIATRIC HISTORY: As noted above. Currently, she is on no psychotropics and has not seen a psychiatrist in some time. She has had several episodes of suicide attempts in the past. PAST MEDICAL HISTORY: Type 2 diabetes mellitus, hypothyroidism, hypertension, diabetic gastroparesis, history of ADHD, migraine headaches without aura, nonalcoholic fatty liver, restless leg syndrome. PAST SURGICAL HISTORY: Cholecystectomy, tonsillectomy, adenoidectomy, bilateral tubal ligation, pediatric eye surgery. ALLERGIES: LISINOPRIL, PENICILLIN. CURRENT PSYCHOTROPICS: Negative. FAMILY HISTORY: Not relevant for psychiatric disorder, but she has a history of myocardial infarction, triple bypass in father who also has COPD, diabetes mellitus and hypertension. Mother is alive at 66 with seizure disorder and rheumatoid arthritis. Sister has ovarian cancer. Two brothers are younger and healthy. SOCIAL HISTORY: She lives with her boyfriend of 9 years. She has 2 sons, 2 daughters. She does not smoke, drink or use any alcohol or recreational drugs. She works at [employer]. REVIEW OF SYSTEMS: Positive for chronic pain, tiredness. No CV, , pulmonary, eye system symptoms on review. MENTAL STATUS EXAM: The patient was seen individually. She is reasonably oriented. Speech coherent. Thought processes, goal directed. Mood is dysphoric, anxious. Denies clear psychotic symptoms, suicidal or homicidal ideation. Intellect average. Insight good. Judgment intact to standard questioning at this time. This note covers elements not covered in my initial note of 07/22/2017. IMPRESSION: Major depressive disorder, recurrent; anxiety disorder, unspecified, probable bipolar 1 disorder versus bipolar 2 disorder, anxiety disorder, unspecified. Rest diagnoses as above. PLAN: The patient is currently on no psychotropics. We will go ahead and start her on Lexapro 5 mg a day, Xanax p.r.n. Received informed consent and cautioned regarding using the Xanax very carefully. She agrees to this. She has no history of alcohol or drug abuse. The Lexapro may need to be increased later. Dr. Arguello, thank you for the opportunity to participate in your patient's care. We will follow with you. MAN Tu JUDGE MD DR: JESSICA/anne JOB#: [id number] / [id number]
--- NOTE | 2017-07-23 18:45 | PDOC ---
Exam Lon Demential Exam: Lon Note: Please also refer to the separate dictated note~for this date of service dictated separately.~Patient seen individually. Discussed the patient with Nursing staff reviewed the chart.~Reviewed interim history and current functioning. Reviewed vital signs,~Labs/ Radiology~and current medications noted below. Continue current treatment with the changes noted in the dictated addendum note Assessment: Vital Signs: Vital Signs Date Time Temp Pulse Resp B/P (MAP) Pulse Ox O2 Delivery O2 Flow Rate FiO2 07/23/17 15:54 98.2 64 20 128/69 (88) 99 Room Air I&O Intake and Output 07/24/17 07:00 Intake Total 1073 ml Output Total 300 ml Balance 773 ml Intake Oral 300 ml IV Total 773 ml Output Emesis 300 ml # Voids 4 Labs: Laboratory Tests Test 07/22/17 21:05 07/23/17 06:05 07/23/17 08:01 07/23/17 11:29 Glucose (Fingerstick) 97 mg/dL (70-99) 88 mg/dL (70-99) 85 mg/dL (70-99) White Blood Count 7.3 x10^3/uL (4.0-11.0) Red Blood Count 4.28 x10^6/uL (3.50-5.40) Hemoglobin 11.5 g/dL (12.0-15.5) L Hematocrit 34.8 % (36.0-47.0) L Mean Corpuscular Volume 81 fL (79-100) Mean Corpuscular Hemoglobin 27 pg (25-35) Mean Corpuscular Hemoglobin Concent 33 g/dL (31-37) Red Cell Distribution Width 16.2 % (11.5-14.5) H Platelet Count 197 x10^3/uL (140-400) Neutrophils (%) (Auto) 52 % (31-73) Lymphocytes (%) (Auto) 39 % (24-48) Monocytes (%) (Auto) 5 % (0-9) Eosinophils (%) (Auto) 3 % (0-3) Basophils (%) (Auto) 1 % (0-3) Neutrophils # (Auto) 3.8 x10^3uL (1.8-7.7) Lymphocytes # (Auto) 2.9 x10^3/uL (1.0-4.8) Monocytes # (Auto) 0.4 x10^3/uL (0.0-1.1) Eosinophils # (Auto) 0.2 x10^3/uL (0.0-0.7) Basophils # (Auto) 0.0 x10^3/uL (0.0-0.2) Erythrocyte Sedimentation Rate 23 (0-25) Sodium Level 141 mmol/L (136-145) Potassium Level 3.4 mmol/L (3.5-5.1) L Chloride Level 103 mmol/L (98-107) Carbon Dioxide Level 31 mmol/L (21-32) Anion Gap 7 (6-14) Blood Urea Nitrogen 8 mg/dL (7-20) Creatinine 0.8 mg/dL (0.6-1.0) Estimated GFR (Cockcroft-Gault) 77.2 BUN/Creatinine Ratio 10 (6-20) Glucose Level 90 mg/dL (70-99) Calcium Level 8.4 mg/dL (8.5-10.1) L Total Bilirubin 0.6 mg/dL (0.2-1.0) Aspartate Amino Transferase (AST) 96 U/L (15-37) H Alanine Aminotransferase (ALT) 138 U/L (14-59) H Alkaline Phosphatase 59 U/L (46-116) Lactate Dehydrogenase 290 U/L (81-234) H C-Reactive Protein 7.0 mg/L (0-3.3) H Total Protein 6.6 g/dL (6.4-8.2) Albumin 3.3 g/dL (3.4-5.0) L Albumin/Globulin Ratio 1.0 (1.0-1.7) Lipase 63 U/L (73-393) L Thyroid Stimulating Hormone (TSH) 1.487 uIU/mL (0.358-3.740) Test 07/23/17 16:41 Glucose (Fingerstick) 118 mg/dL (70-99) H Current Medications: Meds: Current Medications Ondansetron HCl (Zofran) 4 mg STK-MED ONCE .ROUTE Last administered on t 12:58; Start 07/22/17 at 12:40; Stop 07/22/17 at 12:41; Status DC Fentanyl Citrate (Fentanyl 2ml Vial) 100 mcg STK-MED ONCE .ROUTE Last administered on 07/22/17 12:40; Start 07/22/17 at 12:40; Stop 07/22/17 at 12:41 ; Status DC Hydromorphone HCl (Dilaudid) 2 mg 1X ONCE IM ; Start 07/22/17 at 14:00; Stop at 14:01; Status DC Hydromorphone HCl (Dilaudid) 2 mg STK-MED ONCE .ROUTE Last administered on 07/22 13:36; Start 07/22/17 at 13:33; Stop 07/22/17 at 13:34; Status DC Sodium Chloride 1,000 ml @ As Directed STK-MED ONCE .ROUTE ; Start 07/22/17 at 13:53; Stop 07/23/17 at 13:40; Status DC Sodium Chloride 1,000 ml @ 75 mls/hr [id number] IV Last administered on 07/23/17 02:13; Start 07/22/17 at 14:15; Stop 07/23/17 at 13:40; Status DC Hydromorphone HCl (Dilaudid) 1 mg PRN Q3HRS PRN IV PAIN Last administered on 07:25; Start 07/22/17 at 15:00 Diphenhydramine HCl (Benadryl) 25 mg PRN Q4HRS PRN IVP ITCHING Last administered on 07/23/17 07:25; Start 07/22/17 at 14:45 Ondansetron HCl (Zofran) 4 mg PRN Q4HRS PRN IV NAUSEA/VOMITING Last administered on 07/23/17 12:37; Start 07/22/17 at 14:45 Iohexol (Omnipaque 300 Mg/ml) 75 ml 1X ONCE IV Last administered on 07/22/17 15:54; Start 07/22/17 at 15:30; Stop 07/22/17 at 15:31; Status DC Escitalopram Oxalate (Lexapro) 5 mg DAILY PO ; Start 07/23/17 at 09:00; Status Cancel Alprazolam (Xanax) 0.25 mg PRN Q4HRS PRN PO ANXIETY / AGITATION; Start at 21:45 Escitalopram Oxalate (Lexapro) 10 mg DAILY PO Last administered on 07/23/17 08: 29; Start 07/23/17 at 09:00 Aripiprazole (Abilify) 5 mg DAILY PO Last administered on 07/23/17 08:29; Start 07/23/17 at 09:00 Acetaminophen (Tylenol) 650 mg PRN Q6HRS PRN PO PAIN / TEMP; Start 07/23/17 at 11:15; Stop 07/23/17 at 11:17; Status DC Acetaminophen (Tylenol) 650 mg PRN Q6HRS PRN PO PAIN Last administered on 11:28; Start 07/23/17 at 11:30; Stop 07/23/17 at 17:13; Status DC Acetaminophen/ Aspirin/Caffeine (Excedrin Migraine) 2 tab PRN Q6HRS PRN PO MIGRAINE HEADACHE Last administered on 07/23/17 13:46; Start 07/23/17 at 13:45 Potassium Chloride/Dextrose/ Sod Cl 1,000 ml @ 75 mls/hr [id number] IV Last administered on 07/23/17 14:52; Start 07/23/17 at 14:00 Active Scripts Active Zofran Odt (Ondansetron) 4 Mg Tab.rapdis 4 Mg PO Q6HRS PRN Reported Atorvastatin Calcium 10 Mg Tablet 10 Mg PO QHS Protonix (Pantoprazole Sodium) 40 Mg Tablet.dr 1 Tab PO DAILY Meloxicam 15 Mg Tablet 1 Tab PO DAILY Xanax (Alprazolam) 0.5 Mg Tablet 0.5 Mg PO TID PRN PRN Metformin Hcl 500 Mg Tablet 2 Tab PO BID RESTART PER PHYSICIAN'S INSTRUCTIONS Celexa (Citalopram Hydrobromide) 20 Mg Tablet 1 Tab PO HS LAST DOSE GIVEN: DATE: YESTERDAY TIME: AT BEDTIME NEXT DOSE DUE: DATE: TODAY TIME: AT BEDTIME Inderal La (Propranolol Hcl) 60 Mg Cap.sa.24h 120 Mg PO HS RESTART PER PHYSICIAN'S INSTRUCTIONS Diagnosis: Problems: (1) Major depressive disorder, recurrent episode (2) Impulse control disorder (3) Anxiety disorder (4) Gastroparesis BARAK JUDGE MD Jul 23, 2017 18:45
[2017-07-23 19:48] VITALS: BP 158/79
[2017-07-23] MEDS: MORPHINE SULFATE 4 MG/ML DISP.SYRIN. IV PRN (19:57)
--- NOTE | 2017-07-24 01:34 | PN ---
DATE: 07/23/2017 SUBJECTIVE: The patient is resting, propped up, continues to complain of abdominal pain, nausea, vomiting and severe headache. She has not been able to eat, but managed to drink few sips of water and juice. OBJECTIVE: GENERAL: When I examined her, she looked well and was clearly in no apparent respiratory distress, pale, but no jaundice, cyanosis, or thyromegaly. No jugular venous distension. No limb edema. VITAL SIGNS: Her heart rate was 63, blood pressure 113/63, temperature was 98, respiratory rate was 20 and oxygen saturation was 95%. The rest of clinical examination is unremarkable, has not really changed. Her intake was 1225, no output was recorded. LABORATORY DATA: This morning showed a serum sodium 141, potassium 3.4, chloride 103, bicarbonate 31, anion gap 7, BUN 8, creatinine 0.8, estimated GFR was 77 mL per minute. Her glucose was 90. Calcium was 8.4. Total bilirubin and alkaline phosphatase are normal. AST, ALT were elevated. Lactic dehydrogenase is slightly elevated at 290. Her C-reactive protein was 7, total protein was 6.6, albumin 3.3. Her white cell count was 7300, hemoglobin 11.5, hematocrit 35, MCV 81 and platelet count of 197,000 with normal manual differential. Her sedimentation rate was 23 mm/hour. ASSESSMENT: 1. Severe intractable nausea, vomiting and abdominal pain. 2. Diabetic gastroparesis. 3. Hypothyroidism. 4. Hypertension. 5. Bipolar disorder. 6. Attention deficit hyperactivity syndrome. 7. Migraine headache without aura. 8. Nonalcoholic steatohepatitis. 9. Restless leg syndrome. PLAN: To continue with IV antibiotic. Continue with pain medication. ASAEL YEAGER MD DR: FALLON/anne JOB#: [id number] / [id number]
[2017-07-24] MEDS: POTASSIUM CL 40MEQ D5-0.45NACL 1,000 ML IV SCH (03:10)
[2017-07-24] MEDS: MORPHINE SULFATE 4 MG/ML DISP.SYRIN. IV PRN ×2 (03:10→08:39)
[2017-07-24 06:06] VITALS: BP 178/83
[2017-07-24 06:46] LABS: CALCIUM 8.5 mg/dL (8.5-10.1); CREATININE 0.7 mg/dL (0.6-1.0); GFR 90.1; POTASSIUM 3.5 mmol/L (3.5-5.1)
[2017-07-24] MEDS: ONDANSETRON PF 4 MG/2 ML VIAL. IV PRN (08:38)
[2017-07-24] MEDS: ESCITALOPRAM 10 MG TABLET. PO SCH (08:39)
[2017-07-24] MEDS: ARIPiprazole 5 MG TABLET PO SCH (08:39)
[2017-07-24 11:30] VITALS: BP 131/76
[2017-07-24] MEDS ORDERED: ESCITALOPRAM OX10 MG PO (14:17)
[2017-07-24] MEDS ORDERED: ARIP5TAB13 PO (14:17)
--- NOTE | 2017-07-24 22:30 | DS ---
DATE OF DISCHARGE: 07/24/2017 HOSPITAL COURSE: The patient is a 47-year-old female patient, who was admitted with a complaint of severe abdominal pain, nausea, vomiting, and severe headache. She was extensively investigated. All her lab works are stable. She did have CT scan of the head, which was unremarkable. CT scan of the abdomen and pelvis was also unremarkable. She initially managed to drink a few sips of water and juice. She has eaten some mashed potatoes and has also managed to keep her food and was seen by Dr. Olivas, who did not really make any changes to her medication and she remained hemodynamically stable, afebrile, and has been able to tolerate her food and liquids. A decision was made to discharge her home to follow with , her primary care physician, and we recommended that she might try to find the engine room helper in [place] area. PHYSICAL EXAMINATION: GENERAL: When I saw her this afternoon, she looked well and was clearly in no apparent respiratory distress, pale, but no jaundice, cyanosis or thyromegaly. No jugular distension, no limb edema. VITAL SIGNS: Her heart rate was 73, blood pressure 131/76, temperature was 98.3, respiratory rate was 16, and oxygen saturation was 98%. HEAD, EYES, EARS, NOSE AND THROAT: Showed normocephalic and atraumatic. The rest of clinical examination is stable, has not really changed. Her intake over the last 24 hours was 2000, output was 300. LABORATORY DATA: Showed a white cell count of 7300, hemoglobin 11, hematocrit 34, MCV 81 and platelet count of 197,000. Her serum sodium 140, potassium 3.5, chloride 103, bicarbonate 29, anion gap of 8, BUN 4, creatinine 0.7, estimated GFR was 90 mL per minute. Her glucose was 99, calcium was 8.4. She continued to have elevated AST, ALT as she is known to have nonalcoholic steatohepatitis. FINAL DISCHARGE DIAGNOSES: Severe intractable nausea, vomiting and abdominal pain that has resolved; diabetic gastroparesis; hypothyroidism; hypertension; bipolar disorder; attention deficit hyperactivity syndrome; migraine headache without aura; nonalcoholic steatohepatitis; and restless leg syndrome. ASAEL YEAGER MD DR: FALLON/anne JOB#: [id number] / [id number]
--- NOTE | 2017-07-25 01:24 | PN ---
DATE: 07/23/2017 This late entry 07/23/2017 covers elements not covered in my initial note of 07/23/2017. SUBJECTIVE: I met with the patient in the evening of 07/23/2017. Overall, the patient is doing better with respect to her depression and anxiety. She still complains of abdominal pain. MENTAL STATUS EXAM: Reasonably oriented. Speech is coherent, abstraction fair, computation reasonable, language function intact. Mood and affect dysphoric, but showing improvement. LABORATORY DATA: Reviewed. IMPRESSION: Major depressive disorder, recurrent; anxiety disorder, unspecified, probable bipolar 1 disorder versus bipolar 2 disorder. Rest diagnoses unchanged. PLAN: Continue Xanax p.r.n. along with Lexapro 5 mg a day, which has been increased to 10 mg a day along with Abilify 5 mg a day to augment Lexapro and acts as a mood stabilizer given her history of bipolar disorder. We will make further adjustments as clinically indicated. BARAK JUDGE MD DR: JESSICA/anne JOB#: [id number] / [id number]
== END 2017-07-24 15:04 | disposition home or self-care (01) | DRG 74 ==
LOC: ICU 12:21
PROVIDERS: ADMIT Internal Medicine; ATTEND Internal Medicine
DX: E11.43 Type 2 diabetes mellitus with diabetic autonomic (poly)neuropathy (principal); K75.81 Nonalcoholic steatohepatitis (NASH); I10 Essential (primary) hypertension; F31.30 Bipolar disorder, current episode depressed, mild or moderate severity, unspecified; E03.9 Hypothyroidism, unspecified; K31.84 Gastroparesis; F41.9 Anxiety disorder, unspecified; F63.9 Impulse disorder, unspecified; F90.9 Attention-deficit hyperactivity disorder, unspecified type; G25.81 Restless legs syndrome; G43.009 Migraine without aura, not intractable, without status migrainosus; G89.29 Other chronic pain; R74.8 Abnormal levels of other serum enzymes; Z80.41 Family history of malignant neoplasm of ovary; Z82.0 Family history of epilepsy and other diseases of the nervous system; Z82.49 Family history of ischemic heart disease and other diseases of the circulatory system; Z82.5 Family history of asthma and other chronic lower respiratory diseases; Z83.3 Family history of diabetes mellitus; Z90.49 Acquired absence of other specified parts of digestive tract; Z82.61 Family history of arthritis; Z91.5 Personal history of self-harm; Z88.8 Allergy status to other drugs, medicaments and biological substances; Z88.0 Allergy status to penicillin
CPT/HCPCS: 36415; 70450; 74177; 80048; 80053; 82947; 83615; 83690; 84443; 85025; 85651; 86140; 87641; J1170; J1200; J2270; J2405; J3010; J7042; Q9967; J7030

== ENCOUNTER 2017-09-12 11:36 | Emergency (ER) | payer BC ==
[~2017-09-12] VITALS: Ht 157.5 cm; Wt 81.4 kg
[~2017-09-12 11:36] MED LIST changes: +ARIP5TAB13 PO; +ATOR10TA60 PO; +ESCITALOPRAM OX10 MG PO; +MELO15TA23 PO
[2017-09-12] MEDS ORDERED: METOCLOPRAMIDE HCL 10 MG/2 ML VIAL. IV ONE (12:00)
[2017-09-12] MEDS ORDERED: IV NORMAL SALINE 1,000ML 1,000 ML IV ONE (12:00)
[2017-09-12] MEDS ORDERED: HALOPERIDOL LACT 5 MG/ML VIAL. IVP ONE (12:20)
[2017-09-12 12:24] LABS: BASO # 0.1 x10^3/uL (0.0-0.2); BASO % 1 % (0-3); EOS # 0.4 x10^3/uL (0.0-0.7); EOS % 3 % (0-3); HEMOGLOBIN 13.2 g/dL (12.0-15.5); LYMPH # 3.7 x10^3/uL (1.0-4.8); LYMPH % 34 % (24-48); MEAN CORPUSCULAR HEMOGLOBIN 28 pg (25-35); MEAN CORPUSCULAR HGB CONC 34 g/dL (31-37); MEAN CORPUSCULAR VOLUME 82 fL (79-100); MONO # 0.4 x10^3/uL (0.0-1.1); MONO % 4 % (0-9); NEUT # 6.2 x10^3uL (1.8-7.7); NEUT % 58 % (31-73); PLATELET COUNT 256 x10^3/uL (140-400); RED BLOOD COUNT 4.77 x10^6/uL (3.50-5.40); RED CELL DISTRIBUTION WIDTH 15.8 % (11.5-14.5); WHITE BLOOD COUNT 10.7 x10^3/uL (4.0-11.0)
[2017-09-12 12:26] LABS: AMPHETAMINE/METHAMPHETAMINE NEG (NEG); BARBITURATES NEG (NEG); BENZODIAZEPINES POS (NEG); CANNABINOIDS NEG (NEG); COCAINE NEG (NEG); METHADONE NEG (NEG); OPIATES POS (NEG); PHENCYCLIDINE NEG (NEG)
[2017-09-12 12:32] LABS: BILIRUBIN,URINE NEG (NEG); CLARITY,URINE CLEAR; COLOR,URINE YELLOW; GLUCOSE,URINE NEG (NEG)
[2017-09-12 12:33] LABS: BACTERIA,URINE 0 /HPF (0-FEW); NITRITE,URINE NEG (NEG); SQUAMOUS EPITHELIAL CELL,UR MOD /LPF; UROBILINOGEN,URINE 0.2 mg/dL (0.2 mg/dL)
[2017-09-12 12:51] LABS: ALBUMIN 3.4 g/dL (3.4-5.0); ALBUMIN/GLOBULIN RATIO 1.1 (1.0-1.7); CREATININE 0.8 mg/dL (0.6-1.0); GFR 77.2; TOTAL BILIRUBIN 0.4 mg/dL (0.2-1.0); TOTAL PROTEIN 6.6 g/dL (6.4-8.2)
--- NOTE | 2017-09-12 13:36 | EKG ---
[address] [address] Test Date: 2017-09-12 Test Time: 12:00:04 Pat Name: JEFF SANDERS Department: Room: Gender: F Locum Tenens: : 1970 Requested By: STAN YORK Order Number: [id number] Reading MD: Measurements Intervals [place] Rate: 77 P: TN: QRS: 28 QRSD: 82 T: 19 QT: 380 QTc: 432 Interpretive Statements SINUS RHYTHM NORMAL ECG RI6.01 No previous ECG available for comparison
[2017-09-12 14:00] VITALS: BP 160/82
--- NOTE | 2017-09-12 20:29 | ED.ADGEN ---
Past History Past Medical History: Anxiety, Depression, Diabetes, High Cholesterol, Hypertension, Hypothyroid, Other Past Surgical History: Cholecystectomy, Hysterectomy, Tonsillectomy Smoking: Non-smoker Alcohol Use: None Drug Use: None Adult General HPI HPI Patient is a 47-year-old woman, history of type 2 diabetes mellitus, gastroparesis, who presents to the emergency department with complaint of "a flare of my gastroparesis.". Patient states that symptoms began yesterday, states that she's been having nausea, vomiting and diarrhea. States she's been attempting to take her Zofran at home without relief. Patient states that she cannot take Reglan due to side effects. She denies any fevers or chills, any focal weakness, numbness, tingling tingling, chest pain, shortness breath, fevers, chills, sick contacts or exposures. She states that she is experiencing upper abdominal cramping, with loose brown stools and multiple episodes of emesis, consistent with her previous episodes of gastroparesis, denies any new or different symptoms at this time. She states she has an appointment to follow up with GI next week. Review of Systems Review of Systems Constitutional: Denies fever or chills [] Eyes: Denies change in visual acuity, redness, or eye pain [] HENT: Denies nasal congestion or sore throat [] Respiratory: Denies cough or shortness of breath [] Cardiovascular: No additional information not addressed in HPI [] GI: Abdominal cramping, nausea, vomiting, diarrhea, no bloody stools or bloody emesis. : Denies dysuria or hematuria [] Musculoskeletal: Denies back pain or joint pain [] Integument: Denies rash or skin lesions [] Neurologic: Denies headache, focal weakness or sensory changes [] Endocrine: Denies polyuria or polydipsia [] Current Medications Current Medications Current Medications Medications (Trade) Dose Ordered Sig/Shanita Start Time Stop Time Status Last Admin Dose Admin Haloperidol Lactate (Haldol) 5 mg 1X ONCE 09/12/17 12:20 09/12/17 12:21 DC 09/12/17 12:23 5 MG Metoclopramide HCl (Reglan) 10 mg 1X ONCE 09/12/17 12:00 09/12/17 12:13 DC Sodium Chloride 1,000 ml @ 1,000 mls/hr 1X ONCE 09/12/17 12:00 09/12/17 12:59 DC 09/12/17 12:24 1,000 MLS/HR Allergies Allergies Allergies Coded Allergies Type Severity Reaction Last Updated Verified Penicillins Allergy Intermediate Swelling 04/04/17 No ketorolac Allergy Intermediate 04/04/17 Yes Physical Exam Physical Exam Constitutional: Well developed, well nourished, appears uncomfortable, non- toxic appearance. [] HENT: Normocephalic, atraumatic, bilateral external ears normal, oropharynx moist, no oral exudates, nose normal. [] Eyes: PERRLA, EOMI, conjunctiva normal, no discharge. [] Neck: Normal range of motion, no tenderness, supple, no stridor. [] Cardiovascular:Heart rate regular rhythm, no murmur , S1, S2, rubs or gallops.[] Lungs & Thorax: Bilateral breath sounds clear to auscultation, no wheezing, rhonchi, rales. No chest or crepitus or tenderness. [] Abdomen: Bowel sounds normal, soft, mild tenderness all patient in the epigastric region, no masses, no pulsatile masses. [] Skin: Warm, dry, no erythema, no rash. [] Back: No tenderness, no CVA tenderness. [] Extremities: No tenderness, no cyanosis, no clubbing, ROM intact, no edema. Negative Homans sign.[] Neurologic: Alert and oriented X 3, normal motor function, normal sensory function, no focal deficits noted. [] Psychologic: Affect normal, judgement normal, mood normal. [] Current Patient Data Vital Signs Vital Signs Date Time Temp Pulse Resp B/P (MAP) Pulse Ox O2 Delivery O2 Flow Rate FiO2 09/12/17 14:00 80 16 160/82 (108) 98 Room Air 09/12/17 11:40 97.6 Lab Results Laboratory Tests Test 09/12/17 12:01 09/12/17 12:33 White Blood Count 10.7 x10^3/uL (4.0-11.0) Red Blood Count 4.77 x10^6/uL (3.50-5.40) Hemoglobin 13.2 g/dL (12.0-15.5) Hematocrit 39.0 % (36.0-47.0) Mean Corpuscular Volume 82 fL (79-100) Mean Corpuscular Hemoglobin 28 pg (25-35) Mean Corpuscular Hemoglobin Concent 34 g/dL (31-37) Red Cell Distribution Width 15.8 % (11.5-14.5) H Platelet Count 256 x10^3/uL (140-400) Neutrophils (%) (Auto) 58 % (31-73) Lymphocytes (%) (Auto) 34 % (24-48) Monocytes (%) (Auto) 4 % (0-9) Eosinophils (%) (Auto) 3 % (0-3) Basophils (%) (Auto) 1 % (0-3) Neutrophils # (Auto) 6.2 x10^3uL (1.8-7.7) Lymphocytes # (Auto) 3.7 x10^3/uL (1.0-4.8) Monocytes # (Auto) 0.4 x10^3/uL (0.0-1.1) Eosinophils # (Auto) 0.4 x10^3/uL (0.0-0.7) Basophils # (Auto) 0.1 x10^3/uL (0.0-0.2) Urine Collection Type Unknown Urine Color Yellow Urine Clarity Clear Urine pH 8.0 Urine Specific [place] 1.020 Urine Protein Neg (NEG-TRACE) Urine Glucose (UA) Neg mg/dL (NEG) Urine Ketones (Stick) Neg mg/dL (NEG) Urine Blood Trace (NEG) Urine Nitrite Neg (NEG) Urine Bilirubin Neg (NEG) Urine Urobilinogen Dipstick 0.2 mg/dL (0.2 mg/dL) Urine Leukocyte Esterase Neg (NEG) Urine RBC 1-2 /HPF (0-2) Urine WBC 1-4 /HPF (0-4) Urine Squamous Epithelial Cells Mod /LPF Urine Bacteria 0 /HPF (0-FEW) Urine Opiates Screen Pos (NEG) Urine Methadone Screen Neg (NEG) Urine Barbiturates Neg (NEG) Urine Phencyclidine Screen Neg (NEG) Urine Amphetamine/Methamphetamine Neg (NEG) Urine Benzodiazepines Screen Pos (NEG) Urine Cocaine Screen Neg (NEG) Urine Cannabinoids Screen Neg (NEG) Urine Ethyl Alcohol Neg (NEG) Sodium Level 138 mmol/L (136-145) Potassium Level 4.0 mmol/L (3.5-5.1) Chloride Level 102 mmol/L (98-107) Carbon Dioxide Level 28 mmol/L (21-32) Anion Gap 8 (6-14) Blood Urea Nitrogen 8 mg/dL (7-20) Creatinine 0.8 mg/dL (0.6-1.0) Estimated GFR (Cockcroft-Gault) 77.2 BUN/Creatinine Ratio 10 (6-20) Glucose Level 102 mg/dL (70-99) H Calcium Level 9.0 mg/dL (8.5-10.1) Total Bilirubin 0.4 mg/dL (0.2-1.0) Aspartate Amino Transferase (AST) 94 U/L (15-37) H Alanine Aminotransferase (ALT) 110 U/L (14-59) H Alkaline Phosphatase 62 U/L (46-116) Total Protein 6.6 g/dL (6.4-8.2) Albumin 3.4 g/dL (3.4-5.0) Albumin/Globulin Ratio 1.1 (1.0-1.7) Lipase 68 U/L (73-393) L EKG EKG 1200: Sinus rhythm, heart rate 77 beats/minute, upright axis, QTC of 432, QRS of 82, mild baseline artifact noted, no ST elevations or depressions, as interpreted by me.[] Radiology/Procedures Radiology/Procedures Not indicated.[] Course & Med Decision Making Course & Med Decision Making Pertinent Labs and Imaging studies reviewed. (See chart for details) Patient has had previous neuro evaluations recurrent abdominal pain, provided a diagnosis of gastroparesis. Laboratory studies were obtained after discussion with patient bedside, and patient is a history of IV fluids, and Haldol for treatment of recurrent diabetic gastroparesis. On reevaluation, patient is feeling much better, with no further episodes of vomiting, she states her pain is resolved, and she feels ready to go home. Patient is tolerant by mouth fluids without issue. Laboratory studies revealed extremely mild elevation in AST and ALT, otherwise are unremarkable, 's glucose is 120.. I did discuss use of Reglan or other medications that are typically helpful in the gastroparesis with patient, she states that this time due to side effects she will stick with Zofran, and her home medications. She will follow up with GI physician as scheduled, patient to return to the ED if any new or concerning symptoms develop. Final Impression Final Impression [] Problems: Dragon Disclaimer Dragon Disclaimer This electronic medical record was generated, in whole or in part, using a voice recognition dictation system. Departure Disposition: 01 HOME, SELF-CARE Condition: IMPROVED Departure: Impression: Primary Impression: Gastroparesis Additional Impression: Abdominal pain STAN YORK DO Sep 12, 2017 20:29
== END 2017-09-12 14:15 | disposition home or self-care (01) ==
LOC: ER 11:36
DX: K31.84 Gastroparesis (principal); E11.43 Type 2 diabetes mellitus with diabetic autonomic (poly)neuropathy; E03.9 Hypothyroidism, unspecified; E78.00 Pure hypercholesterolemia, unspecified; I10 Essential (primary) hypertension; Z90.49 Acquired absence of other specified parts of digestive tract; Z90.710 Acquired absence of both cervix and uterus; Z88.0 Allergy status to penicillin; Z88.6 Allergy status to analgesic agent
CPT/HCPCS: 36415; 80053; 80307; 81001; 83690; 85025; 93005; 96361; 96374; 99285; J1630; G0479; J7030

== ENCOUNTER → 2017-10-21 | Day surgery (SDC) | payer BC ==
[~2017-10-21] MED LIST changes: +IV RINGERS SOLUTION,LACTATED 1,000 ML IV ONE; +LIDOCAINE 2% PF Vial for OR 5 ML VIAL. ONE; +PROPOFOL 20 ML IV ONE
== END | disposition home or self-care (01) ==
LOC: SURG 08:15
PROVIDERS: ATTEND Internal Medicine Gastroenterology
DX: K29.70 Gastritis, unspecified, without bleeding (principal); K31.84 Gastroparesis; I10 Essential (primary) hypertension; F32.9 Major depressive disorder, single episode, unspecified; E11.9 Type 2 diabetes mellitus without complications; Z90.710 Acquired absence of both cervix and uterus; Z90.49 Acquired absence of other specified parts of digestive tract; Z98.51 Tubal ligation status
CPT/HCPCS: 43239; 82947; J2704; J3010; J7120; J2001

== ENCOUNTER → 2017-11-02 | Outpatient (CLI) | payer BC ==
[~2017-11-02] MED LIST changes: -IV RINGERS SOLUTION,LACTATED 1,000 ML IV ONE; -LIDOCAINE 2% PF Vial for OR 5 ML VIAL. ONE; -PROPOFOL 20 ML IV ONE
--- NOTE | 2017-11-02 12:49 | RAD ---
Indication: Pain after lifting weights. Posterior upper arm. Technique: Ultrasound of the left triceps and its tendon was performed. Findings: Triceps tendon is not well visualized. The triceps muscle does not appear redundant. There is some fluid distally that is suspected to be along the tendon. No redundancy of the visualized portion of the tendon is apparent. Impression: 1. Nonspecific fluid along the triceps tendon may be secondary to tendinopathy. 2. No definite complete tear of the triceps tendon. If strong clinical suspicion for partial or complete tear, consider MRI.
== END | disposition home or self-care (01) ==
LOC: US 11:18
PROVIDERS: ATTEND Nurse Practitioner Family
DX: M25.522 Pain in left elbow (principal); Y93.B3 Activity, free weights
CPT/HCPCS: 76881

== ENCOUNTER 2017-12-17 12:18 | Emergency (ER) | payer SELFPAY ==
[~2017-12-17] VITALS: Ht 157.5 cm; Wt 81.6 kg
[2017-12-17 13:22] LABS: BILIRUBIN,URINE NEG (NEG); CLARITY,URINE CLEAR; COLOR,URINE YELLOW; GLUCOSE,URINE NEG (NEG); NITRITE,URINE NEG (NEG); UROBILINOGEN,URINE 0.2 mg/dL (0.2 mg/dL)
[2017-12-17 13:25] LABS: BASO # 0.1 x10^3/uL (0.0-0.2); BASO % 1 % (0-3); EOS # 0.4 x10^3/uL (0.0-0.7); EOS % 3 % (0-3); HEMATOCRIT 39.3 % (36.0-47.0); HEMOGLOBIN 12.9 g/dL (12.0-15.5); LYMPH # 2.7 x10^3/uL (1.0-4.8); LYMPH % 24 % (24-48); MEAN CORPUSCULAR HEMOGLOBIN 26 pg (25-35); MEAN CORPUSCULAR HGB CONC 33 g/dL (31-37); MEAN CORPUSCULAR VOLUME 80 fL (79-100); MONO # 0.6 x10^3/uL (0.0-1.1); MONO % 5 % (0-9); NEUT # 7.5 x10^3uL (1.8-7.7); NEUT % 67 % (31-73); PLATELET COUNT 255 x10^3/uL (140-400); RED BLOOD COUNT 4.89 x10^6/uL (3.50-5.40); RED CELL DISTRIBUTION WIDTH 15.4 % (11.5-14.5); WHITE BLOOD COUNT 11.2 x10^3/uL (4.0-11.0)
[2017-12-17 13:28] LABS: BACTERIA,URINE FEW /HPF (0-FEW); RBC,URINE 0 /HPF (0-2); SQUAMOUS EPITHELIAL CELL,UR MOD /LPF; WBC,URINE 0 /HPF (0-4)
[2017-12-17 13:33] LABS: ALBUMIN 3.7 g/dL (3.4-5.0); CREATININE 0.8 mg/dL (0.6-1.0); GFR 77.2; POTASSIUM 4.2 mmol/L (3.5-5.1); TOTAL BILIRUBIN 0.4 mg/dL (0.2-1.0); TOTAL PROTEIN 7.5 g/dL (6.4-8.2)
[2017-12-17] MEDS: methylPREDNISolone SOD SUCC PF 125 MG/2 ML VIAL. IV ONE (13:42)
[2017-12-17] MEDS: ONDANSETRON PF 4 MG/2 ML VIAL. IV ONE (13:43)
[2017-12-17] MEDS: MORPHINE SULFATE 4 MG/ML DISP.SYRIN. IV ONE (13:43)
[2017-12-17] MEDS: IPRATRPIUM/ALBUTEROL 0.5/2.5MG 3 ML NEBU. NEB ONE (13:57)
[2017-12-17 14:09] LABS: INFLUENZA A PATIENT NEGATIVE (NEGATIVE); INFLUENZA B PATIENT NEGATIVE (NEGATIVE)
[2017-12-17 14:59] VITALS: BP 120/81
[2017-12-17] MEDS ORDERED: HYDR-971 PO (15:22)
--- NOTE | 2017-12-17 15:22 | PHYS DOC ---
Past History Past Medical History: Diabetes, Hypothyroid, Other Past Surgical History: Cholecystectomy, Hysterectomy, Tonsillectomy, Other Smoking: Non-smoker Alcohol Use: None Drug Use: None Adult General Chief Complaint Chief Complaint: SHORTNESS OF BREATH HPI HPI 47-year-old female patient states she has had cough and yellow sputum with fever and myalgia associated with sore throat, nausea and vomiting for the last 3 days. Patient states that he was sick at home. Patient was seen by her primary care physician and had negative tests and prescription for prednisone and antibiotics was given and patient decided to come to ER for evaluation. Review of Systems Review of Systems Constitutional: Reports fever and chills and weakness Eyes: Denies change in visual acuity, redness, or eye pain [] HENT: Reports nasal congestion or sore throat Respiratory: As cough and shortness of breath[] Cardiovascular: No additional information not addressed in HPI [] GI: Denies abdominal pain, vomiting, bloody stools or diarrhea , reports nausea [] : Denies dysuria or hematuria [] Musculoskeletal: Denies back pain or joint pain [] Integument: Denies rash or skin lesions [] Neurologic: Denies headache, focal weakness or sensory changes [] Endocrine: Denies polyuria or polydipsia [] All other systems were reviewed and found to be within normal limits, except as documented in this note. Current Medications Current Medications Current Medications Medications (Trade) Dose Ordered Sig/Shanita Start Time Stop Time Status Last Admin Dose Admin Albuterol/ Ipratropium (Duoneb) 3 ml 1X ONCE 12/17/17 13:20 12/17/17 13:21 DC 12/17/17 13:57 3 ML Methylprednisolone Sodium Succinate (SOLU-Medrol 125MG VIAL) 125 mg 1X ONCE 12/17/17 13:20 12/17/17 13:21 DC 12/17/17 13:42 125 MG Morphine Sulfate (Morphine 4mg Syringe) 4 mg 1X ONCE 12/17/17 13:45 12/17/17 13:46 DC 12/17/17 13:43 4 MG Ondansetron HCl (Zofran) 4 mg 1X ONCE 12/17/17 13:45 12/17/17 13:46 DC 12/17/17 13:43 4 MG Allergies Allergies Allergies Coded Allergies Type Severity Reaction Last Updated Verified Penicillins Allergy Intermediate Swelling 12/17/17 No ketorolac Allergy Intermediate 12/17/17 Yes Physical Exam Physical Exam Constitutional: Well nourished, moderate distress, anxious, non-toxic appearance. [] HENT: Normocephalic, atraumatic, bilateral external ears normal, oropharynx moist, no oral exudates, nose normal. [] Eyes: PERRLA, EOMI, conjunctiva normal, no discharge. [] Neck: Normal range of motion, no tenderness, supple, no stridor. [] Cardiovascular:Heart rate regular rhythm, no murmur [] Lungs & Thorax: Mild rhonchi and wheezing Abdomen: Bowel sounds normal, soft, no tenderness, no masses, no pulsatile masses. [] Skin: Warm, dry, no erythema, no rash. [] Back: No tenderness, no CVA tenderness. [] Extremities: No tenderness, no cyanosis, no clubbing, ROM intact, no edema. [] Neurologic: Alert and oriented X 3, normal motor function, normal sensory function, no focal deficits noted. [] Psychologic: Anxious Current Patient Data Vital Signs Vital Signs Date Time Temp Pulse Resp B/P (MAP) Pulse Ox O2 Delivery O2 Flow Rate FiO2 12/17/17 14:29 82 107/73 (84) Room Air 98.0 12/17/17 13:59 100 12/17/17 13:43 16 12/17/17 12:33 99.3 Lab Results Laboratory Tests Test 12/17/17 12:28 12/17/17 13:08 12/17/17 13:37 Urine Collection Type Unknown Urine Color Yellow Urine Clarity Clear Urine pH 5.5 Urine Specific [place] 1.020 Urine Protein Neg (NEG-TRACE) Urine Glucose (UA) Neg mg/dL (NEG) Urine Ketones (Stick) Neg mg/dL (NEG) Urine Blood Neg (NEG) Urine Nitrite Neg (NEG) Urine Bilirubin Neg (NEG) Urine Urobilinogen Dipstick 0.2 mg/dL (0.2 mg/dL) Urine Leukocyte Esterase Neg (NEG) Urine RBC 0 /HPF (0-2) Urine WBC 0 /HPF (0-4) Urine Squamous Epithelial Cells Mod /LPF Urine Bacteria Few /HPF (0-FEW) Urine Mucus Mod /LPF White Blood Count 11.2 x10^3/uL (4.0-11.0) H Red Blood Count 4.89 x10^6/uL (3.50-5.40) Hemoglobin 12.9 g/dL (12.0-15.5) Hematocrit 39.3 % (36.0-47.0) Mean Corpuscular Volume 80 fL (79-100) Mean Corpuscular Hemoglobin 26 pg (25-35) Mean Corpuscular Hemoglobin Concent 33 g/dL (31-37) Red Cell Distribution Width 15.4 % (11.5-14.5) H Platelet Count 255 x10^3/uL (140-400) Neutrophils (%) (Auto) 67 % (31-73) Lymphocytes (%) (Auto) 24 % (24-48) Monocytes (%) (Auto) 5 % (0-9) Eosinophils (%) (Auto) 3 % (0-3) Basophils (%) (Auto) 1 % (0-3) Neutrophils # (Auto) 7.5 x10^3uL (1.8-7.7) Lymphocytes # (Auto) 2.7 x10^3/uL (1.0-4.8) Monocytes # (Auto) 0.6 x10^3/uL (0.0-1.1) Eosinophils # (Auto) 0.4 x10^3/uL (0.0-0.7) Basophils # (Auto) 0.1 x10^3/uL (0.0-0.2) Sodium Level 141 mmol/L (136-145) Potassium Level 4.2 mmol/L (3.5-5.1) Chloride Level 101 mmol/L (98-107) Carbon Dioxide Level 29 mmol/L (21-32) Anion Gap 11 (6-14) Blood Urea Nitrogen 7 mg/dL (7-20) Creatinine 0.8 mg/dL (0.6-1.0) Estimated GFR (Cockcroft-Gault) 77.2 BUN/Creatinine Ratio 9 (6-20) Glucose Level 107 mg/dL (70-99) H Lactic Acid Level 1.7 mmol/L (0.4-2.0) Calcium Level 9.0 mg/dL (8.5-10.1) Total Bilirubin 0.4 mg/dL (0.2-1.0) Aspartate Amino Transferase (AST) 36 U/L (15-37) Alanine Aminotransferase (ALT) 86 U/L (14-59) H Alkaline Phosphatase 77 U/L (46-116) Total Protein 7.5 g/dL (6.4-8.2) Albumin 3.7 g/dL (3.4-5.0) Albumin/Globulin Ratio 1.0 (1.0-1.7) Influenza Type A (Rapid) Negative (NEGATIVE) Influenza Type B (Rapid) Negative (NEGATIVE) EKG EKG [] Radiology/Procedures Radiology/Procedures [] Course & Med Decision Making Course & Med Decision Making Pertinent Labs and Imaging studies reviewed. (See chart for details) Evaluation of patient in ER showed 47-year-old male patient with several days cough and congestion and fever and shortness of breath with negative flu test at Dr. mcmillan. Patient treated with IV fluid and nebulizer treatment and Solu- Medrol 50 better. Labs was unremarkable. Patient had prescription of prednisone and antibiotic by her physician. Patient instructed to continue home medication and increase fluid intake. Prescription for hydrocodone was given because of myalgia. Dragon Disclaimer Dragon Disclaimer This electronic medical record was generated, in whole or in part, using a voice recognition dictation system. Departure Departure: Impression: Primary Impression: Upper respiratory infection Disposition: HOME, SELF-CARE (At 1521) Condition: IMPROVED Referrals: CHELY HUITRON MD (PCP) Patient Instructions: Upper Respiratory Infection, Adult Additional Instructions: Continue the medication given by ER physician today Follow-up with your primary care physician in 3-5 days Return to ER if not getting better Scripts Hydrocodone Bit/Acetaminophen (NORCO 5-325 TABLET) 1 Each Tablet 1 TAB PO PRN Q6HRS Y for PAIN, #10 TAB 0 Refills Prov: ABDELRAHMAN PROCTOR MD 12/17/17 ABDELRAHMAN PROCTOR MD Dec 17, 2017 15:22
--- NOTE | 2017-12-17 15:25 | RAD ---
Chest, 2 views, 12/17/2017: History: Cough and shortness of breath Comparison is made to a study from 07/19/2017. The heart size and pulmonary vascularity are normal. No pulmonary infiltrates are seen. There is no evidence of pleural fluid. IMPRESSION: No acute cardiopulmonary abnormality is detected.
== END 2017-12-17 15:29 | disposition home or self-care (01) ==
LOC: ER 12:18
DX: J06.9 Acute upper respiratory infection, unspecified (principal); E03.9 Hypothyroidism, unspecified; E11.9 Type 2 diabetes mellitus without complications; Z88.0 Allergy status to penicillin; Z88.8 Allergy status to other drugs, medicaments and biological substances
CPT/HCPCS: 36415; 71046; 80053; 81001; 83605; 85025; 87040; 87804; 94640; 96374; 96375; 99285; J2270; J2405; J2930; J7620

== ENCOUNTER 2018-06-24 18:54 | Emergency (ER) | payer OTHER ==
[~2018-06-24] VITALS: Ht 157.5 cm; Wt 81.4 kg
[~2018-06-24 18:54] MED LIST changes: -METF500T4 PO; +METF500T5 PO
[2018-06-24] MEDS ORDERED: IV NORMAL SALINE 1,000ML 1,000 ML IV ONE (19:15)
[2018-06-24] MEDS ORDERED: diphenhydrAMINE 50 MG/ML VIAL IVP ONE (19:15)
[2018-06-24] MEDS ORDERED: METOCLOPRAMIDE HCL 10 MG/2 ML VIAL. IV ONE (19:15)
[2018-06-24] MEDS ORDERED: FAMOTIDINE 20 MG/2 ML VIAL IVP ONE (19:15)
--- NOTE | 2018-06-24 19:23 | EKG ---
[address] [address] Test Date: 2018-06-24 Test Time: 19:21:40 Pat Name: JEFF ALEX Department: Room: Gender: F Search Coordinator: : 1970 Requested By: MISHA TRUJILLO Order Number: [id number] Reading MD: Measurements Intervals [place] Rate: 81 P: 0 VT: 120 QRS: 14 QRSD: 90 T: 4 QT: 374 QTc: 440 Interpretive Statements SINUS RHYTHM NO SPECIFIC ECG ABNORMALITIES RI6.01 Unconfirmed report No previous ECG available for comparison
--- NOTE | 2018-06-24 19:35 | PHYS DOC ---
Past History Past Medical History: Anxiety, Diabetes, GERD, Hypertension, Hypothyroid, Other Past Surgical History: Hysterectomy, Other Smoking: Non-smoker Alcohol Use: None Drug Use: None Adult General Chief Complaint Chief Complaint: ABDOMINAL PAIN HPI HPI Patient is a 48 yo female who presents to the emergency department complaining of abdominal pain. She states that she has gastroparesis and that she is experiencing a "flare-up". Patient states that she has type 2 diabetes. She says her sugars have been approximately in the 190's and she is unsure of her A1c level. She states that she has been treated in the hospital previously for similar symptoms. She rates her pain as 10/10. Patient states that she has vomited multiple times today. Denies trauma. Denies fever/chills Denies known sick contacts. Patient unclear what triggers her chronic pain. Review of Systems Review of Systems Constitutional: Denies fever or chills [] Eyes: Denies change in visual acuity, redness, or eye pain [] HENT: Denies nasal congestion or sore throat [] Respiratory: Denies cough or shortness of breath [] Cardiovascular: Complains of epigastric pain and denies palpitations [] GI: Endorses abdominal pain, nausea, and vomiting. [] Musculoskeletal: Denies back pain or joint pain [] Integument: Denies rash or skin lesions [] Neurologic: Reports headache, denies focal weakness or sensory changes [] Complete systems were reviewed and found to be within normal limits, except as documented in this note. Current Medications Current Medications Current Medications Medications (Trade) Dose Ordered Sig/Shanita Start Time Stop Time Status Last Admin Dose Admin Diphenhydramine HCl (Benadryl) 50 mg 1X ONCE 06/24/18 19:15 06/24/18 19:16 DC Famotidine (Pepcid Vial) 20 mg 1X ONCE 06/24/18 19:15 06/24/18 19:16 DC Metoclopramide HCl (Reglan Vial) 10 mg 1X ONCE 06/24/18 19:15 06/24/18 19:16 DC Sodium Chloride 1,000 ml @ 1,000 mls/hr 1X ONCE 06/24/18 19:15 06/24/18 20:14 Allergies Allergies Allergies Coded Allergies Type Severity Reaction Last Updated Verified Penicillins Allergy Intermediate Swelling 12/17/17 No ketorolac Allergy Intermediate 12/17/17 Yes Physical Exam Physical Exam Constitutional: Well developed, well nourished, non-toxic appearance, patient appears in pain and uncomfortable HENT: Normocephalic, atraumatic, oropharynx moist, Eyes: PERRL, EOMI [] Neck: Normal range of motion, no tenderness, supple, no meningeal signs Cardiovascular: Heart rate regular rhythm, no murmur [] Lungs & Thorax: Bilateral breath sounds clear to auscultation [] Abdomen: Soft; Epigastric and LUQ abdominal tenderness. Skin: Warm, dry, no erythema, no rash. [] Back: No tenderness, no CVA tenderness. [] Extremities: No tenderness, no cyanosis, no clubbing, ROM intact, no edema. [] Neurologic: Alert and oriented X 3, normal motor function, normal sensory function, no focal deficits noted. [] Current Patient Data Vital Signs Vital Signs Date Time Temp Pulse Resp B/P (MAP) Pulse Ox O2 Delivery O2 Flow Rate FiO2 06/24/18 19:11 98.2 77 21 97 Room Air EKG EKG NSR at 81bpm, NO ST elevation, baseline artifact, obtained at 1921 on 06/24/18 Radiology/Procedures Radiology/Procedures PROCEDURE: CT ABD PELV W/ IV CONTRST ONLY PQRS Compliance Statement: One or more of the following individualized dose reduction techniques were utilized for this examination: 1. Automated exposure control 2. Adjustment of the mA and/or kV according to patient size 3. Use of iterative reconstruction technique CT abdomen/pelvis with contrast 06/24/2018 10:05 PM INDICATION: Upper abdominal pain. History of gastroparesis. COMPARISON: CT abdomen/pelvis July 22, 2017 TECHNIQUE: Multiple axial CT images of the abdomen and pelvis were obtained after the intravenous administration of 73 mL Omnipaque 300. Coronal and sagittal reformats are provided. FINDINGS: Visualized portions of the lung bases are clear. Heart size is within normal limits. No suspicious hepatic masses are identified. Liver is homogeneous in enhancement. Spleen, bilateral adrenal glands, and pancreas are normal in appearance. Gallbladder is surgically absent. The abdominal aorta is normal in course and caliber. There are no pathologically enlarged lymph nodes in the abdomen and pelvis. There is no abdominal free fluid. There is no free intraperitoneal air. The kidneys enhance symmetrically. There is no suspicious renal mass. There is no hydronephrosis. There are no suspected calculi within the kidneys, ureters or urinary bladder. Small and large bowel are normal in caliber. There is no evidence for bowel obstruction. There are no pericolonic inflammatory changes. A normal, nondilated appendix is visualized without adjacent inflammatory changes. Stomach is normal in appearance. The urinary bladder is within normal limits given degree of distention. No suspicious pelvic masses are identified. There are no suspicious osseous lesions identified. IMPRESSION: No acute abnormality is identified in the abdomen and pelvis. Electronically signed by: Olivia Temple MD (06/24/2018 11:06 PM) [facility] Course & Med Decision Making Course & Med Decision Making Pertinent Labs and Imaging studies reviewed. (See chart for details) Patient is a 48-year-old female who presents to the emergency department complaining of acute on chronic abdominal pain which she attributes to gastroparesis. She states that she has had multiple episodes of gastroparesis in the past and is being treated for it. Symptomatic treatment provided. Labs obtained and posted to chart. LFTs/lipase WNL. WBC count slightly elevated but is most likely reactive in nature.CT abd/pelvis without acute processes. Likely diagnosis is chronic abdominal pain/gastroparesis. Patient also reports some headache. Neurologically intact. No history of trauma. No meningeal signs. Supportive care provided. Patient stable for discharge with outpatient follow- up with PCP/GI . Discussed findings and plan with patient who acknowledges understanding and agreement. Dragon Disclaimer Dragon Disclaimer This electronic medical record was generated, in whole or in part, using a voice recognition dictation system. Departure Departure: Impression: Primary Impression: Abdominal pain Additional Impressions: Hx of diabetic gastroparesis Headache Disposition: HOME, SELF-CARE Condition: IMPROVED Referrals: CHELY HUITRON MD (PCP) Patient Instructions: Abdominal Pain, Gastroparesis, Headache, FAQs Scripts Butalb/Acetaminophen/Caffeine ([id number] 50-325-40) 1 Each Tablet 1 EACH PO Q6HRS PRN for HEADACHE, #14 TAB Prov: MISHA TRUJILLO DO 06/24/18 Hyoscyamine Sulfate (LEVSIN-SL) 0.125 Mg Tab.subl 1 TAB SL PRN Q4HRS PRN for PAIN, #20 TAB 0 Refills Prov: MISHA TRUJILLO DO 06/24/18 Problem Qualifiers Primary Impression: Abdominal pain Abdominal location: upper abdomen, unspecified Qualified Codes: R10.10 - Upper abdominal pain, unspecified Additional Impressions: Headache Headache type: unspecified Headache chronicity pattern: acute headache Intractability: not intractable Qualified Codes: R51 - Headache MISHA TRUJILLO DO Jun 24, 2018 19:34
[2018-06-24 19:41] LABS: BASO # 0.1 x10^3/uL (0.0-0.2); BASO % 1 % (0-3); EOS # 0.3 x10^3/uL (0.0-0.7); EOS % 2 % (0-3); HEMATOCRIT 41.5 % (36.0-47.0); HEMOGLOBIN 14.1 g/dL (12.0-15.5); LYMPH # 5.9 x10^3/uL (1.0-4.8); LYMPH % 38 % (24-48); MEAN CORPUSCULAR HEMOGLOBIN 27 pg (25-35); MEAN CORPUSCULAR HGB CONC 34 g/dL (31-37); MEAN CORPUSCULAR VOLUME 79 fL (79-100); MONO # 0.6 x10^3/uL (0.0-1.1); MONO % 4 % (0-9); NEUT # 8.7 x10^3uL (1.8-7.7); NEUT % 55 % (31-73); PLATELET COUNT 341 x10^3/uL (140-400); RED BLOOD COUNT 5.28 x10^6/uL (3.50-5.40); RED CELL DISTRIBUTION WIDTH 15.2 % (11.5-14.5); WHITE BLOOD COUNT 15.7 x10^3/uL (4.0-11.0)
[2018-06-24 19:55] LABS: ALBUMIN 3.9 g/dL (3.4-5.0); ALBUMIN/GLOBULIN RATIO 1.1 (1.0-1.7); ALK PHOS 74 U/L (46-116); ALT (SGPT) 42 U/L (14-59); ANION GAP 9 (6-14); AST (SGOT) 19 U/L (15-37); BLOOD UREA NITROGEN 9 mg/dL (7-20); BUN/CREATININE RATIO 11 (6-20); CALCIUM 9.8 mg/dL (8.5-10.1); CARBON DIOXIDE 27 mmol/L (21-32); CHLORIDE 102 mmol/L (98-107); CREATININE 0.8 mg/dL (0.6-1.0); GFR 76.9; GLUCOSE 101 mg/dL (70-99); LIPASE 87 U/L (73-393); SODIUM 138 mmol/L (136-145); TOTAL BILIRUBIN 0.3 mg/dL (0.2-1.0); TOTAL PROTEIN 7.4 g/dL (6.4-8.2)
[2018-06-24] MEDS ORDERED: LORazepam 2 MG/ML VIAL IV ONE (20:45)
[2018-06-24] MEDS ORDERED: HYOSCYAMINE 0.125 MG TAB.RAPDIS PO ONE (20:45)
[2018-06-24] MEDS ORDERED: IOHEXOL 300 MG/ML 75 ML VIAL. IV ONE (21:15)
[2018-06-24 21:36] LABS: BILIRUBIN,URINE NEG (NEG); CLARITY,URINE HAZY; COLOR,URINE YELLOW; GLUCOSE,URINE NEG (NEG); NITRITE,URINE NEG (NEG); UROBILINOGEN,URINE 0.2 mg/dL (0.2 mg/dL)
[2018-06-24 21:37] LABS: BACTERIA,URINE 0 /HPF (0-FEW); RBC,URINE RARE /HPF (0-2); SQUAMOUS EPITHELIAL CELL,UR MANY /LPF; WBC,URINE OCC /HPF (0-4)
[2018-06-24 22:00] LABS: AMPHETAMINE/METHAMPHETAMINE POS (NEG); BARBITURATES NEG (NEG); BENZODIAZEPINES POS (NEG); CANNABINOIDS NEG (NEG); COCAINE NEG (NEG); METHADONE NEG (NEG); OPIATES NEG (NEG); PHENCYCLIDINE NEG (NEG)
[2018-06-24 22:51] VITALS: BP 150/99
[2018-06-24 23:07] LABS: % EOS 3 % (0-5); % LYMPHS 20 % (24-48); % MONOS 4 % (0-10); % SEGS 61 % (35-66); PLT ESTIMATE ADEQUATE (ADEQUATE)
[2018-06-24 23:10] LABS: % ATYL 12 % (0-0)
--- NOTE | 2018-06-24 23:10 | RAD ---
PQRS Compliance Statement: One or more of the following individualized dose reduction techniques were utilized for this examination: 1. Automated exposure control 2. Adjustment of the mA and/or kV according to patient size 3. Use of iterative reconstruction technique CT abdomen/pelvis with contrast 06/24/2018 10:05 PM INDICATION: Upper abdominal pain. History of gastroparesis. COMPARISON: CT abdomen/pelvis July 22, 2017 TECHNIQUE: Multiple axial CT images of the abdomen and pelvis were obtained after the intravenous administration of 73 mL Omnipaque 300. Coronal and sagittal reformats are provided. FINDINGS: Visualized portions of the lung bases are clear. Heart size is within normal limits. No suspicious hepatic masses are identified. Liver is homogeneous in enhancement. Spleen, bilateral adrenal glands, and pancreas are normal in appearance. Gallbladder is surgically absent. The abdominal aorta is normal in course and caliber. There are no pathologically enlarged lymph nodes in the abdomen and pelvis. There is no abdominal free fluid. There is no free intraperitoneal air. The kidneys enhance symmetrically. There is no suspicious renal mass. There is no hydronephrosis. There are no suspected calculi within the kidneys, ureters or urinary bladder. Small and large bowel are normal in caliber. There is no evidence for bowel obstruction. There are no pericolonic inflammatory changes. A normal, nondilated appendix is visualized without adjacent inflammatory changes. Stomach is normal in appearance. The urinary bladder is within normal limits given degree of distention. No suspicious pelvic masses are identified. There are no suspicious osseous lesions identified. IMPRESSION: No acute abnormality is identified in the abdomen and pelvis. Electronically signed by: Olivia Temple MD (06/24/2018 11:06 PM) [facility]
[2018-06-24] MEDS ORDERED: HYOS0.1265 SL (23:35)
[2018-06-24] MEDS ORDERED: BUTA1TAB23 PO (23:35)
[2018-06-24] MEDS ORDERED: BUTALB/APAP/CAFEIN 50/325/40MG TABLET. PO ONE (23:45)
== END 2018-06-24 23:56 | disposition home or self-care (01) ==
LOC: ER 18:54
DX: R10.13 Epigastric pain (principal); R10.12 Left upper quadrant pain; R11.10 Vomiting, unspecified; R51 Headache; E11.43 Type 2 diabetes mellitus with diabetic autonomic (poly)neuropathy; K31.84 Gastroparesis; F41.9 Anxiety disorder, unspecified; K21.9 Gastro-esophageal reflux disease without esophagitis; I10 Essential (primary) hypertension; E03.9 Hypothyroidism, unspecified; Z90.710 Acquired absence of both cervix and uterus; Z88.0 Allergy status to penicillin; Z88.8 Allergy status to other drugs, medicaments and biological substances
CPT/HCPCS: 36415; 74177; 80053; 80307; 81001; 82553; 83605; 83690; 84484; 85007; 85025; 93005; 96361; 96374; 96375; 99285; J1200; J2060; J2765; Q9967; S0028; G0479; J7030

== ENCOUNTER 2018-07-22 19:22 | Inpatient (IN) | payer OTHER ==
[~2018-07-22] VITALS: Ht 157.5 cm; Wt 70.4 kg
[~2018-07-22 19:22] MED LIST changes: +BUTA1TAB23 PO; +HYOS0.1265 SL; +METF500T16 PO; -METF500T5 PO
[2018-07-22 20:15] LABS: BASO # 0.1 x10^3/uL (0.0-0.2); BASO % 1 % (0-3); EOS # 0.2 x10^3/uL (0.0-0.7); EOS % 2 % (0-3); HEMATOCRIT 43.2 % (36.0-47.0); HEMOGLOBIN 14.5 g/dL (12.0-15.5); LYMPH # 5.3 x10^3/uL (1.0-4.8); LYMPH % 49 % (24-48); MEAN CORPUSCULAR HEMOGLOBIN 27 pg (25-35); MEAN CORPUSCULAR HGB CONC 34 g/dL (31-37); MEAN CORPUSCULAR VOLUME 80 fL (79-100); MONO # 0.6 x10^3/uL (0.0-1.1); MONO % 5 % (0-9); NEUT # 4.7 x10^3uL (1.8-7.7); NEUT % 43 % (31-73); PLATELET COUNT 330 x10^3/uL (140-400); RED CELL DISTRIBUTION WIDTH 15.1 % (11.5-14.5); WHITE BLOOD COUNT 10.8 x10^3/uL (4.0-11.0)
--- NOTE | 2018-07-22 20:15 | PHYS DOC ---
Past History Past Medical History: Anxiety, Diabetes, GERD, Hypertension, Hypothyroid, Other Past Surgical History: Hysterectomy, Other Smoking: Non-smoker Alcohol Use: None Drug Use: None Adult General Chief Complaint Chief Complaint: ABDOMINAL PAIN HPI HPI 48-year-old female presents with abdominal pain. The patient has a history of gastroparesis. She believes she may be having an attack. She had diarrhea yesterday, but today she's had no stool in she's had significantly increasing pain in the right side of her abdomen. She has had several episodes of vomiting today which included food from yesterday. She is crying and stating it is very painful. She is on erythromycin. She is concern for bowel obstruction. She denies fever or chills. Review of Systems Review of Systems Constitutional: Denies fever or chills [] Eyes: Denies change in visual acuity, redness, or eye pain [] HENT: Denies nasal congestion or sore throat [] Respiratory: Denies cough or shortness of breath [] Cardiovascular: No additional information not addressed in HPI [] GI: Abdominal pain, vomiting[] : Denies dysuria or hematuria [] Musculoskeletal: Denies back pain or joint pain [] Integument: Denies rash or skin lesions [] Neurologic: Denies headache, focal weakness or sensory changes [] Endocrine: Denies polyuria or polydipsia [] All other systems were reviewed and found to be within normal limits, except as documented in this note. Current Medications Current Medications Current Medications Medications (Trade) Dose Ordered Sig/[facility] Start Time Stop Time Status Last Admin Dose Admin Hydromorphone HCl (Dilaudid) 1 mg 1X ONCE 07/22/18 20:15 07/22/18 20:16 UNV Metoclopramide HCl (Reglan Vial) 10 mg 1X ONCE 07/22/18 20:15 07/22/18 20:16 UNV Allergies Allergies Allergies Coded Allergies Type Severity Reaction Last Updated Verified Penicillins Allergy Intermediate Swelling 12/17/17 No ketorolac Allergy Intermediate 12/17/17 Yes Physical Exam Physical Exam Constitutional: Well developed, well nourished, moderate acute distress, non- toxic appearance. [] HENT: Normocephalic, atraumatic, bilateral external ears normal, oropharynx moist, no oral exudates, nose normal. [] Eyes: PERRLA, EOMI, conjunctiva normal, no discharge. [] Neck: Normal range of motion, no tenderness, supple, no stridor. [] Cardiovascular:Heart rate regular rhythm, no murmur [] Lungs & Thorax: Bilateral breath sounds clear to auscultation [] Abdomen: Soft. Right sided tenderness with guarding, no rebound. No palpable masses [] Skin: Warm, dry, no erythema, no rash. [] Back: No tenderness, no CVA tenderness. [] Extremities: No tenderness, no cyanosis, no clubbing, ROM intact, no edema. [] Neurologic: Alert and oriented X 3, normal motor function, normal sensory function, no focal deficits noted. [] Psychologic: Crying, judgement normal, mood anxious. [] EKG EKG [] Radiology/Procedures Radiology/Procedures [] Impressions: PQRS Compliance statement: One or more of the following individualized dose reduction techniques were utilized for this examination: 1. Automated exposure control. 2. Adjustment of the mA and/or kV according to patient size. 3. Use of iterative reconstruction technique. Indication:Evaluate for obstruction. Hx gastroparesis, hysterectomy, cholecystectomy, tubal ligation TECHNIQUE: CT abdomen and pelvis with IV contrast with multiplanar reformats. COMPARISON: 07/22/2017 FINDINGS: Heart is normal in size. No pericardial or pleural effusion. Clear lung bases. Liver, spleen, pancreas, adrenals and kidneys are within normal limits. No enlarged retroperitoneal or pelvic adenopathy. Status post cholecystectomy. No free pelvic fluid or ascites. There is borderline distention of the short segment small bowel loop in the left upper quadrant.. Normal appendix. Status post hysterectomy. Urinary bladder within normal limits. Bilateral ovaries are present. Shotty mesenteric lymph nodes, nonspecific. No pneumoperitoneum. No suspicious bony lesion. IMPRESSION: Borderline focal dilation of short segment of the small bowel loop likely jejunal loop in the left upper quadrant, nonspecific but may suggest early small bowel obstruction or focal ileus. No discrete transition point seen. Electronically signed by: Jj Link DO (07/22/2018 9:18 PM) [facility] DICTATED AND SIGNED BY: JJ LINK DO DATE: 07/22/182112 CC: CHELY HUITRON MD; SVITLANA LOFTON DO ~ Course & Med Decision Making Course & Med Decision Making Pertinent Labs and Imaging studies reviewed. (See chart for details) The patient's labs are unremarkable. Her pain is controlled with 1 mg of Dilaudid. The patient's CT scan is concerning for possible obstruction. He cannot be ruled out. I discussed these results with the patient the need for further observation. The patient is in agreement. I discussed the case with Dr. Arguello and he has accepted the patient for admission. I made the patient nothing by mouth. [] Dragon Disclaimer Dragon Disclaimer This electronic medical record was generated, in whole or in part, using a voice recognition dictation system. Departure Departure: Referrals: CHELY HUITRON MD (PCP) SVITLANA LOFTON DO Jul 22, 2018 20:15
[2018-07-22 20:21] LABS: ALBUMIN/GLOBULIN RATIO 1.1 (1.0-1.7); CALCIUM 9.4 mg/dL (8.5-10.1); CREATININE 0.8 mg/dL (0.6-1.0); GFR 76.9; POTASSIUM 3.5 mmol/L (3.5-5.1); TOTAL BILIRUBIN 0.4 mg/dL (0.2-1.0); TOTAL PROTEIN 7.7 g/dL (6.4-8.2)
[2018-07-22] MEDS ORDERED: METOCLOPRAMIDE HCL 10 MG/2 ML VIAL. IV ONE (20:30)
[2018-07-22] MEDS ORDERED: HYDROmorphone PF 1 MG/ML DISP.SYRIN IV ONE (20:30)
[2018-07-22] MEDS ORDERED: CONTRAST GIVEN MC PRN (20:30)
[2018-07-22] MEDS ORDERED: IOHEXOL 300 MG/ML 75 ML VIAL. IV ONE (20:30)
--- NOTE | 2018-07-22 21:22 | RAD ---
PQRS Compliance statement: One or more of the following individualized dose reduction techniques were utilized for this examination: 1. Automated exposure control. 2. Adjustment of the mA and/or kV according to patient size. 3. Use of iterative reconstruction technique. Indication:Evaluate for obstruction. Hx gastroparesis, hysterectomy, cholecystectomy, tubal ligation TECHNIQUE: CT abdomen and pelvis with IV contrast with multiplanar reformats. COMPARISON: 07/22/2017 FINDINGS: Heart is normal in size. No pericardial or pleural effusion. Clear lung bases. Liver, spleen, pancreas, adrenals and kidneys are within normal limits. No enlarged retroperitoneal or pelvic adenopathy. Status post cholecystectomy. No free pelvic fluid or ascites. There is borderline distention of the short segment small bowel loop in the left upper quadrant.. Normal appendix. Status post hysterectomy. Urinary bladder within normal limits. Bilateral ovaries are present. Shotty mesenteric lymph nodes, nonspecific. No pneumoperitoneum. No suspicious bony lesion. IMPRESSION: Borderline focal dilation of short segment of the small bowel loop likely jejunal loop in the left upper quadrant, nonspecific but may suggest early small bowel obstruction or focal ileus. No discrete transition point seen. Electronically signed by: Jj Link DO (07/22/2018 9:18 PM) [facility]
[2018-07-22] MEDS: HYDROmorphone PF 1 MG/ML DISP.SYRIN IV PRN (23:21)
[2018-07-23] VITALS: BP 151/90
[2018-07-23] MEDS: IV NORMAL SALINE 1,000ML 1,000 ML IV SCH ×2 (00:17→08:22)
[2018-07-23] MEDS ORDERED: ALPR1TAB2 PO (03:28)
[2018-07-23] MEDS ORDERED: LAMO25TA PO (03:28)
[2018-07-23] MEDS ORDERED: LEVO25TA55 PO (03:28)
[2018-07-23] MEDS ORDERED: ERYT250C8 PO (03:28)
[2018-07-23] MEDS: ONDANSETRON PF 4 MG/2 ML VIAL. IV PRN ×3 (03:59→12:15)
[2018-07-23] MEDS: HYDROmorphone PF 1 MG/ML DISP.SYRIN IV PRN ×3 (03:59→12:15)
[2018-07-23] MEDS ORDERED: ONDA4TAB10 PO (04:52)
[2018-07-23 05:31] VITALS: BP 130/81
[2018-07-23 06:41] LABS: BASO % 1 % (0-3); EOS # 0.1 x10^3/uL (0.0-0.7); EOS % 2 % (0-3); HEMATOCRIT 36.1 % (36.0-47.0); LYMPH # 3.2 x10^3/uL (1.0-4.8); LYMPH % 41 % (24-48); MEAN CORPUSCULAR HEMOGLOBIN 27 pg (25-35); MEAN CORPUSCULAR HGB CONC 33 g/dL (31-37); MEAN CORPUSCULAR VOLUME 80 fL (79-100); MONO # 0.4 x10^3/uL (0.0-1.1); MONO % 5 % (0-9); NEUT # 4.1 x10^3uL (1.8-7.7); NEUT % 53 % (31-73); PLATELET COUNT 238 x10^3/uL (140-400); RED BLOOD COUNT 4.51 x10^6/uL (3.50-5.40); WHITE BLOOD COUNT 7.8 x10^3/uL (4.0-11.0)
[2018-07-23 06:48] LABS: CALCIUM 8.2 mg/dL (8.5-10.1); CREATININE 0.7 mg/dL (0.6-1.0); GFR 89.7; POTASSIUM 3.3 mmol/L (3.5-5.1)
[2018-07-23 11:00] VITALS: BP 128/83
[2018-07-23] MEDS ORDERED: METOCLOPRAMIDE HCL 10 MG/2 ML VIAL. IV PRN ×2 (12:30→12:45)
[2018-07-23] MEDS ORDERED: POTASSIUM CL 40MEQ D5-0.45NACL 1,000 ML IV SCH (13:00)
--- NOTE | 2018-07-23 14:35 | SSS ---
ADMIT DATE: 07/22/2018 HISTORY OF PRESENT ILLNESS: The patient is a 48-year-old female patient who came to the Emergency Room complaining of abdominal pain. She is apparently known to have gastroparesis and she did have diarrhea the day before admission, but on the day of admission, she had no stool, significant increasing pain in her right side of her abdomen. She has had several episodes of vomiting, which include foot that she has taken from yesterday. She is on erythromycin; however, she denied any hematemesis, melena or hematochezia. Denied any chills, rigors or fever. She was investigated in the Emergency Room and her lab works were unremarkable; however, her CT scan of the abdomen and pelvis showed that the patient has borderline focal dilation of the short segment of the small bowel; loop likely jejunal loop in the left upper quadrant, nonspecific, but may suggest early small-bowel obstruction or focal ileus. No discrete transition point seen. Given that the patient continued to have recurrent bouts of nausea, vomiting and there is a possibility this might have bowel obstruction, I spoke with Dr. Garcia and the plan is for her to be transferred to [facility] to consult the surgical team as well as the Gastroenterology team. PAST MEDICAL HISTORY: Significant for type 2 diabetes mellitus, hypothyroidism, hypertension, and gastroparesis. PAST SURGICAL HISTORY: Significant for cholecystectomy, total abdominal hysterectomy, bilateral salpingo-oophorectomy, eye surgery. ALLERGIES: She is allergic to PENICILLIN, AND KETOROLAC. MEDICATIONS: She is currently on following medications: She is on erythromycin base 250 mg, she takes 175 mg p.o. at bedtime. She is on propranolol 120 mg p.o. at bedtime, lamotrigine 25 mg at bedtime, alprazolam 1 mg at bedtime, ondansetron 4 mg every 6 hours as needed, Protonix 40 mg at bedtime, metformin 1000 mg at bedtime, levothyroxine sodium 25 mcg once a day. FAMILY HISTORY: She has 2 brothers and 1 sister, younger and healthy. Her father is alive, has diabetes, COPD, and underwent coronary artery bypass graft surgery. Her mother is alive and has epilepsy. SOCIAL HISTORY: She is with her . They have a total of 7 children, 2 daughters and 5 boys. She never smoked, does not drink alcohol or use recreational drugs. She is currently on disability. REVIEW OF SYSTEMS: The patient denied any blurring of vision, cataract, glaucoma or macular degeneration. Denied any earache, tinnitus, or sensorineural deafness. Denied any nosebleeds, stuffy nose or postnasal drip. Denied any sore throat, sore tongue, toothache, hoarseness of voice or difficulty swallowing. Did have recurrent bouts of nausea and vomiting. She has also had episodes of diarrhea, but no constipation. No hematemesis, melena or hematochezia. No dysuria, frequency or hematuria. The patient denied any chest pain, shortness of breath, orthopnea, does not know dyspnea. Denied any cough, phlegm or hemoptysis. Denied any chills, rigors or fever. PHYSICAL EXAMINATION: GENERAL: On arrival to the Emergency Room, she was clearly in pain, but there was no pallor, jaundice, cyanosis, or thyromegaly. No jugular venous distension. No lower limb edema. VITAL SIGNS: Her heart rate was 125, blood pressure was 146/89. Her temperature was 98.3, respiratory rate 24, and oxygen saturation was 97% on room air. HEAD, EYES, EARS, NOSE, AND THROAT: Showed normocephalic, atraumatic. NECK: Supple. HEART: Showed normal first and second sounds. No gallop, rub, or murmur. CHEST: Clear to auscultation. No crepitation or rhonchi. ABDOMEN: Distended, soft with tenderness mostly in the right upper quadrant. There is no guarding or rigidity. No organomegaly. Hernial orifice intact. Bowel sounds normal. NEUROLOGIC: She is awake, alert, responding appropriately. Cranial nerves intact. EXTREMITIES: She moves extremities without difficulty. She ambulates without assistance or assistive devices. LABORATORY DATA: On admission showed a white cell count of 10,800, hemoglobin 14.5, hematocrit 43, MCV 80 and platelet count of 230,000. Her serum sodium was 142, potassium 3.5, chloride 103, bicarbonate 31, anion gap of 8, BUN 5, creatinine 0.8, estimated GFR was 77 mL per minute. Her glucose was 100, calcium was 9.4, lactic acid is 1.6. Total bilirubin, AST, ALT, alkaline phosphatase were normal. Total protein was 7.7, albumin was 4. A CT scan of the abdomen and pelvis showed that she has borderline focal dilation of the short segment of the small bowel loop, likely jejunal loop in the left upper quadrant, nonspecific, but may suggest early small-bowel obstruction or focal ileus. No discrete transition point seen. The patient was treated with IV hydromorphone, IV fluid; however, she continued to complain of pain and after discussion with the surgical team, a decision was made to transfer her to [facility]. When I saw her this afternoon, she was still complaining of pain and had multiple episodes of nausea and vomiting this morning, continued to have abdominal pain mostly in the right upper quadrant. On examining her prior to transfer, she looked well and was clearly in no apparent respiratory distress. No pallor, jaundice, cyanosis, or thyromegaly. No jugular venous distension. No limb edema. Her heart rate was 66, blood pressure 130/81, temperature was 98, respiratory rate was 18, and oxygen saturation was 96%. The rest of clinical exam is stable, has not changed. Her lab work this morning showed a serum sodium 142, potassium 3.3, chloride 106, bicarbonate 29, anion gap of 7, BUN 4, creatinine 0.7, estimated GFR was 90 mL per minute. Her glucose was 82, calcium was 8.2. Her white cell count was 7800, hemoglobin 12, hematocrit 36, MCV 80 and platelet count 238,000. She was transferred to [facility] to continue with D5 half normal with 40 mEq of potassium chloride IV at 75 mL per hour, fentanyl citrate 50 mcg IV every 3 hours, metoclopramide 10 mg IV 6 hours, hydromorphone 1 mg every hour. She was on Zofran 4 mg IV every 4 hours. TRANSFER DIAGNOSES: 1. Small-bowel obstruction versus ileus. 2. Type 2 diabetes mellitus. 3. Hypertension. 4. Hypothyroidism. 5. Gastroparesis. ASAEL YEAGER MD DR: FALLON/anne JOB#: [id number] / [id number]
[2018-07-23 15:08] VITALS: BP 125/73
== END 2018-07-23 15:13 | disposition short-term general hospital (02) | DRG 390 ==
LOC: ER 19:22 → 1 SOUTH 22:40
PROVIDERS: ADMIT Internal Medicine; ATTEND Internal Medicine
DX: K56.609 Unspecified intestinal obstruction, unspecified as to partial versus complete obstruction (principal); E11.43 Type 2 diabetes mellitus with diabetic autonomic (poly)neuropathy; K56.7 Ileus, unspecified; I10 Essential (primary) hypertension; K21.9 Gastro-esophageal reflux disease without esophagitis; F41.9 Anxiety disorder, unspecified; K31.84 Gastroparesis; E03.9 Hypothyroidism, unspecified; Z82.0 Family history of epilepsy and other diseases of the nervous system; Z82.5 Family history of asthma and other chronic lower respiratory diseases; Z90.710 Acquired absence of both cervix and uterus; Z83.3 Family history of diabetes mellitus; Z88.0 Allergy status to penicillin; Z88.8 Allergy status to other drugs, medicaments and biological substances; Z90.49 Acquired absence of other specified parts of digestive tract; Z90.722 Acquired absence of ovaries, bilateral
CPT/HCPCS: 36415; 74177; 80048; 80053; 82947; 83605; 85025; 96374; 96375; J1170; J2405; J2765; J3010; J7042; Q9967; 99285-25; J7030

== ENCOUNTER 2018-08-27 23:26 | Emergency (ER) | payer OTHER ==
[~2018-08-27] VITALS: Ht 157.5 cm; Wt 64.4 kg
[~2018-08-27 23:26] MED LIST changes: +ALPR1TAB2 PO; +ERYT250C8 PO; +LAMO25TA PO; +LEVO25TA55 PO
--- NOTE | 2018-08-28 00:32 | PHYS DOC ---
Past History Past Medical History: Anxiety, Depression, Diabetes, Hypertension, Hypothyroid Past Surgical History: Cholecystectomy, Hysterectomy, Tonsillectomy Smoking: Non-smoker Alcohol Use: None Drug Use: None Adult General Chief Complaint Chief Complaint: SHORTNESS OF BREATH [facility] HPI 48-year-old female presents with chest pressure and shortness of breath. Patient states that this feeling started early in the morning around 3 AM. She describes the chest pressure as a 6 out of 10 heaviness with an occasional and needles feeling. It does not radiate. She also feels short of breath with this. She had one episode of diaphoresis earlier in the day but that has resolved. The patient also complains of dizziness which she describes as a lightheaded feeling that has been increasing throughout the day as well. Patient denies drugs or alcohol. She does admit that she ran out of her propranolol 120 mg 2 days ago and has not taken it for 2 days. She knows that her blood pressure is been high today. Patient had a nuclear stress test about 6 months ago which she said she was not told any bad results. She did not have a heart catheter done. There were no interventions performed. She denies fever or chills. Review of Systems Review of Systems Constitutional: Denies fever or chills [] Eyes: Denies change in visual acuity, redness, or eye pain [] HENT: Denies nasal congestion or sore throat [] Respiratory: shortness of breath [] Cardiovascular: No additional information not addressed in HPI [] GI: Denies abdominal pain, nausea, vomiting, bloody stools or diarrhea [] : Denies dysuria or hematuria [] Musculoskeletal: Denies back pain or joint pain [] Integument: Denies rash or skin lesions [] Neurologic: Denies headache. "Numb feeling on the left side" [] Endocrine: Denies polyuria or polydipsia [] All other systems were reviewed and found to be within normal limits, except as documented in this note. Allergies Allergies Allergies Coded Allergies Type Severity Reaction Last Updated Verified Penicillins Allergy Intermediate Swelling 12/17/17 No ketorolac Allergy Intermediate 12/17/17 Yes Physical Exam Physical Exam Constitutional: Well developed, well nourished, no acute distress, non-toxic appearance. [] HENT: Normocephalic, atraumatic, bilateral external ears normal, oropharynx moist, no oral exudates, nose normal. [] Eyes: PERRLA, EOMI, conjunctiva normal, no discharge. Prosthetic right eye[] Neck: Normal range of motion, no tenderness, supple, no stridor. [] Cardiovascular:Heart rate regular rhythm, no murmur [] Lungs & Thorax: Bilateral breath sounds clear to auscultation [] Abdomen: Bowel sounds normal, soft, no tenderness, no masses, no pulsatile masses. [] Skin: Warm, dry, no erythema, no rash. [] Back: No tenderness, no CVA tenderness. [] Extremities: No tenderness, no cyanosis, no clubbing, ROM intact, no edema. [] Neurologic: Alert and oriented X 3, normal motor function, normal sensory function, no focal deficits noted. [] Psychologic: Affect normal, judgement normal, mood normal. [] Current Patient Data Vital Signs Vital Signs Date Time Temp Pulse Resp B/P (MAP) Pulse Ox O2 Delivery O2 Flow Rate FiO2 08/27/18 23:42 97.5 68 18 100 Room Air EKG EKG Sinus rhythm, rate 60, normal axis, no ST elevations or depressions.[] Radiology/Procedures Radiology/Procedures [] Impressions: Preliminary interpretation: No atelectasis, no infiltrates, no pneumothorax. Chest PA and lateral: Reason for examination: Short of breath with chest heaviness starting Wednesday. Comparison is made to previous study dated 12/17/2017. The heart size is normal. Mediastinum is unremarkable. Lung scruggs are clear. No acute bony abnormalities are seen. Impression: No acute cardiopulmonary disease. Electronically signed by: Gabby Serna MD (08/28/2018 2:16 AM) [facility] DICTATED AND SIGNED BY: GABBY SERNA MD DATE: 08/28/18 0214 CC: CHELY HUITRON MD; SVITLANA LOFTON DO Course & Med Decision Making Course & Med Decision Making Pertinent Labs and Imaging studies reviewed. (See chart for details) The patient's x-ray is unremarkable. Her EKG is unremarkable. Her labs are unremarkable. Her troponin is negative. Given the patient suddenly stopped 120 mg a day of propranolol, I'm concerned she is having some withdrawal complications that could be the source of her symptoms. I will give her a liter of normal saline and 5 mg metoprolol IV. After the metoprolol, the patient stated that her chest pressure went away. She also felt a bit better overall. Since she is still waiting on her doctor's office to approve for propranolol refill, I will prescribe this 60 mg extended release tablets. I have advised that she take 1 tablet tomorrow and then increase to 2 tablets the next day since she has not had any for 2 days except for the small dose given in the ED. She will follow up with her primary physician as needed. She is stable for discharge at this time. [] Dragon Disclaimer Dragon Disclaimer This electronic medical record was generated, in whole or in part, using a voice recognition dictation system. Departure Departure: Referrals: CHELY HUITRON MD (PCP) Scripts Propranolol Hcl (INDERAL LA) 60 Mg Cap.sa.24h 120 MG PO DAILY for 10 Days, #20 CAP.SR Prov: SVITLANA LOFTON DO 08/28/18 SVITLANA LOFTON DO Aug 28, 2018 00:32
[2018-08-28 00:43] LABS: BASO % 0 % (0-3); EOS # 0.2 x10^3/uL (0.0-0.7); EOS % 2 % (0-3); HEMATOCRIT 37.8 % (36.0-47.0); HEMOGLOBIN 12.9 g/dL (12.0-15.5); LYMPH # 3.9 x10^3/uL (1.0-4.8); LYMPH % 38 % (24-48); MEAN CORPUSCULAR HEMOGLOBIN 27 pg (25-35); MEAN CORPUSCULAR HGB CONC 34 g/dL (31-37); MEAN CORPUSCULAR VOLUME 79 fL (79-100); MONO # 0.6 x10^3/uL (0.0-1.1); MONO % 6 % (0-9); NEUT # 5.5 x10^3uL (1.8-7.7); NEUT % 54 % (31-73); PLATELET COUNT 249 x10^3/uL (140-400); RED BLOOD COUNT 4.79 x10^6/uL (3.50-5.40); RED CELL DISTRIBUTION WIDTH 14.8 % (11.5-14.5); WHITE BLOOD COUNT 10.1 x10^3/uL (4.0-11.0)
[2018-08-28 00:53] LABS: ALBUMIN 3.6 g/dL (3.4-5.0); ALBUMIN/GLOBULIN RATIO 1.1 (1.0-1.7); CALCIUM 9.5 mg/dL (8.5-10.1); CREATININE 0.8 mg/dL (0.6-1.0); GFR 76.9; TOTAL BILIRUBIN 0.5 mg/dL (0.2-1.0); TOTAL PROTEIN 6.9 g/dL (6.4-8.2)
[2018-08-28] MEDS: METOPROLOL TARTRATE 5 MG/5 ML VIAL. IV ONE ×2 (02:00→02:33)
[2018-08-28] MEDS ORDERED: IV NORMAL SALINE 1,000ML 1,000 ML IV ONE (02:00)
--- NOTE | 2018-08-28 02:19 | RAD ---
Chest PA and lateral: Reason for examination: Short of breath with chest heaviness starting Wednesday. Comparison is made to previous study dated 12/17/2017. The heart size is normal. Mediastinum is unremarkable. Lung scruggs are clear. No acute bony abnormalities are seen. Impression: No acute cardiopulmonary disease. Electronically signed by: Gabby Hearn MD (08/28/2018 2:16 AM) [facility]
[2018-08-28 02:53] VITALS: BP 132/82
[2018-08-28] MEDS ORDERED: PROP60CA8 PO (02:59)
--- NOTE | 2018-08-28 06:08 | EKG ---
[address] [address] Test Date: 2018-08-27 Test Time: 23:37:25 Pat Name: JEFF SANDERS Department: Room: Gender: F Editor News: : 1970 Requested By: SVITLANA LOFTON Order Number: [id number] Reading MD: Kj Wall MD Measurements Intervals [place] Rate: 60 P: 36 [place]: 144 QRS: 11 QRSD: 86 T: 21 QT: 416 QTc: 420 Interpretive Statements SINUS RHYTHM Electronically Signed On 08-31-2018 12:06:59 CDT by Kj Wall MD
== END 2018-08-28 03:10 | disposition home or self-care (01) ==
LOC: ER 23:26
DX: R07.89 Other chest pain (principal); R06.02 Shortness of breath; R42 Dizziness and giddiness; R61 Generalized hyperhidrosis; F41.9 Anxiety disorder, unspecified; F32.9 Major depressive disorder, single episode, unspecified; E11.9 Type 2 diabetes mellitus without complications; I10 Essential (primary) hypertension; E03.9 Hypothyroidism, unspecified; Z88.0 Allergy status to penicillin; Z88.8 Allergy status to other drugs, medicaments and biological substances
CPT/HCPCS: 36415; 71046; 80053; 84484; 85025; 93005; 96361; 96374; 99285; J3490; J7030

== ENCOUNTER 2019-01-12 18:38 | Inpatient (IN) | payer MEDICARE, OTHER ==
[~2019-01-12] VITALS: Ht 157.5 cm; Wt 68.5 kg
[~2019-01-12 18:38] MED LIST changes: +HYDR-3165 PO; -HYDR-971 PO; -LAMO25TA PO; +LAMO25TA9 PO
--- NOTE | 2019-01-12 18:49 | ED.ADGEN ---
Past History Past Medical History: Anxiety, Depression, Diabetes, Hypertension, Hypothyroid , Other Past Surgical History: Cholecystectomy, Hysterectomy, Tonsillectomy Smoking: Non-smoker Alcohol Use: None Drug Use: None Adult General Chief Complaint Chief Complaint "... I got bad abd. pain... I have gastroparesis.. I hurting all over my abd.... been vomiting... I have had this before... .. I usually see Dr. Reed.. but I feel so bad.. " HPI HPI Patient is a 48 year old female who presents with above hx and complaints of generalized abdomen pain, cyclic vomiting and dry heaves. Patient does have a history of gastroparesis. Patient denies any intake bad food. Patient denies any specific ill contacts. Patient denies any trauma. Patient rates her pain as severe 10 out of 10. There is no findings of a focal local eye for pain. Patient denies any travel or specific ill contacts. Patient does have a history of diabetes, hypertension, elevated cholesterol, diabetes, PTSD, depression, and chills of cyclic vomiting. Patient has had previous abdomen surgeries of cholecystectomy and hysterectomy. Patient normally follows Dr. Reed. Review of Systems Review of Systems Constitutional: Denies fever or chills [] Eyes: Denies change in visual acuity, redness, or eye pain [] HENT: Denies nasal congestion or sore throat [] Respiratory: Denies cough or shortness of breath [] Cardiovascular: No additional information not addressed in HPI [] GI: Complaints of generalized abdominal pain, nausea, vomiting,. Denies bloody stools : Denies dysuria or hematuria [] Musculoskeletal: Denies back pain or joint pain [] Integument: Denies rash or skin lesions [] Neurologic: Denies headache, focal weakness or sensory changes [] Endocrine: Denies polyuria or polydipsia [] All other systems were reviewed and found to be within normal limits, except as documented in this note. Family History Family History Diabetes Current Medications Current Medications Current Medications Medications (Trade) Dose Ordered Sig/Shanita Start Time Stop Time Status Last Admin Dose Admin Famotidine (Pepcid Vial) 20 mg 1X ONCE 01/12/19 19:30 01/12/19 19:31 DC 01/12/19 19:26 20 MG Info (Do NOT chart on this entry -- for MONITORING) 1 each PRN DAILY PRN 01/12/19 19:30 01/14/19 19:29 Iohexol (Omnipaque 240 Mg/ml) 50 ml 1X ONCE 01/12/19 19:30 01/12/19 19:31 DC 01/12/19 20:58 50 ML Iohexol (Omnipaque 300 Mg/ml) 75 ml 1X ONCE 01/12/19 19:30 01/12/19 19:31 DC 01/12/19 20:58 75 ML Lactated Ringer's 1,000 ml @ 1,000 mls/hr Q1H 01/12/19 19:05 01/12/19 20:04 DC 01/12/19 19:26 1,000 MLS/HR Morphine Sulfate (Morphine 10mg Syringe) 10 mg 1X ONCE 01/12/19 19:30 01/12/19 19:31 DC 01/12/19 19:27 10 MG Ondansetron HCl (Zofran) 8 mg 1X ONCE 01/12/19 19:30 01/12/19 19:31 DC 01/12/19 19:27 8 MG Allergies Allergies Allergies Coded Allergies Type Severity Reaction Last Updated Verified Penicillins Allergy Intermediate Swelling 01/12/19 No ketorolac Allergy Intermediate 01/12/19 Yes Physical Exam Physical Exam Constitutional: in acute distress, non-toxic appearance. Tearful. HENT: Normocephalic, atraumatic, bilateral external ears normal, oropharynx dry , no oral exudates, nose normal. 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 [] Cardiovascular: Heart rate regular rhythm, no murmur [] Lungs & Thorax: Bilateral breath sounds equal at apex auscultation [] Abdomen: Bowel sounds decreased, soft, generalized tenderness, no masses, no pulsatile masses. Old surgery scars. Patient declines rectal pelvic exam at this time. Patient has moderate rebound to epigastric area. Distended. Skin: Warm, dry, no erythema, no rash. [] Back: No tenderness, no CVA tenderness. [] Extremities: No tenderness, no cyanosis, no clubbing, ROM intact, no edema. [No true psoas. Neurologic: Alert and oriented X 3, normal motor function, normal sensory function, no focal deficits noted. [] Psychologic: Affect very anxious, judgement normal, mood depressed, tearful Current Patient Data Vital Signs Vital Signs Date Time Temp Pulse Resp B/P (MAP) Pulse Ox O2 Delivery O2 Flow Rate FiO2 01/12/19 19:27 18 98 Room Air 01/12/19 18:55 98.8 90 Lab Results Laboratory Tests Test 01/12/19 19:15 White Blood Count 13.7 x10^3/uL (4.0-11.0) H Red Blood Count 5.23 x10^6/uL (3.50-5.40) Hemoglobin 14.1 g/dL (12.0-15.5) Hematocrit 42.4 % (36.0-47.0) Mean Corpuscular Volume 81 fL (79-100) Mean Corpuscular Hemoglobin 27 pg (25-35) Mean Corpuscular Hemoglobin Concent 33 g/dL (31-37) Red Cell Distribution Width 15.0 % (11.5-14.5) H Platelet Count 310 x10^3/uL (140-400) Neutrophils (%) (Auto) 53 % (31-73) Lymphocytes (%) (Auto) 40 % (24-48) Monocytes (%) (Auto) 4 % (0-9) Eosinophils (%) (Auto) 2 % (0-3) Basophils (%) (Auto) 1 % (0-3) Neutrophils # (Auto) 7.3 x10^3uL (1.8-7.7) Lymphocytes # (Auto) 5.5 x10^3/uL (1.0-4.8) H Monocytes # (Auto) 0.6 x10^3/uL (0.0-1.1) Eosinophils # (Auto) 0.3 x10^3/uL (0.0-0.7) Basophils # (Auto) 0.2 x10^3/uL (0.0-0.2) Prothrombin Time 9.9 SEC (9.4-11.4) Prothrombin Time INR 1.0 (0.9-1.1) PTT 26 SEC (23-33) Urine Collection Type Unknown Urine Color Yellow Urine Clarity Clear Urine pH 5.5 Urine Specific [place] 1.025 Urine Protein Trace (NEG-TRACE) Urine Glucose (UA) Neg mg/dL (NEG) Urine Ketones (Stick) Trace mg/dL (NEG) Urine Blood Neg (NEG) Urine Nitrite Neg (NEG) Urine Bilirubin Neg (NEG) Urine Urobilinogen Dipstick 0.2 mg/dL (0.2 mg/dL) Urine Leukocyte Esterase Neg (NEG) Urine RBC Rare /HPF (0-2) Urine WBC Rare /HPF (0-4) Urine Squamous Epithelial Cells Many /LPF Urine Bacteria Mod /HPF (0-FEW) Urine Mucus Marked /LPF Maternal Serum HCG Beta Subunit 1 mIU/mL (0-6) Sodium Level 140 mmol/L (136-145) Potassium Level 4.2 mmol/L (3.5-5.1) Chloride Level 102 mmol/L (98-107) Carbon Dioxide Level 28 mmol/L (21-32) Anion Gap 10 (6-14) Blood Urea Nitrogen 9 mg/dL (7-20) Creatinine 0.8 mg/dL (0.6-1.0) Estimated GFR (Cockcroft-Gault) 76.9 Glucose Level 96 mg/dL (70-99) Calcium Level 9.4 mg/dL (8.5-10.1) Total Bilirubin 0.4 mg/dL (0.2-1.0) Direct Bilirubin 0.1 mg/dL (0.0-0.2) Aspartate Amino Transferase (AST) 16 U/L (15-37) Alanine Aminotransferase (ALT) 21 U/L (14-59) Alkaline Phosphatase 61 U/L (46-116) Creatine Kinase 27 U/L (26-192) Troponin I Quantitative < 0.017 ng/mL (0-0.055) Total Protein 7.8 g/dL (6.4-8.2) Albumin 3.9 g/dL (3.4-5.0) Amylase Level 66 U/L (25-115) Lipase 75 U/L (73-393) Urine Opiates Screen Neg (NEG) Urine Methadone Screen Neg (NEG) Urine Barbiturates Neg (NEG) Urine Phencyclidine Screen Neg (NEG) Urine Amphetamine/Methamphetamine Pos (NEG) Urine Benzodiazepines Screen Pos (NEG) Urine Cocaine Screen Neg (NEG) Urine Cannabinoids Screen Neg (NEG) Urine Ethyl Alcohol Neg (NEG) EKG EKG My interpretation EKG shows a sinus rhythm at 69 bpm. No acute morphology[] Radiology/Procedures Radiology/Procedures I interpretation of acute abdomen film shows no acute cardiopulmonary findings. No free air under the diaphragm. Abdomen appears distended. Does have clips right upper quadrant as well as findings of lower pelvic surgery.[] CT of abdomen shows no acute surgical pathology. No findings of appendicitis, hydronephrosis, does have diarrhea to consider changes but no diverticulitis or findings of abscess. Findings of prior surgeries of cholecystectomy and hysterectomy. Course & Med Decision Making Course & Med Decision Making Pertinent Labs and Imaging studies reviewed. (See chart for details) Patient admitted to Dr. Adrian for further evaluation and treatment. Hydration. We will keep patient nothing by mouth. If persistent vomiting nursing or 4 NG placement on intermittent suction. [] Final Impression Final Impression 1. Abdomen Pain 2. Hx. Gastroparesis 3. Hx DM 4. Hx. HTN 5. Hx. Anxiety 6. Hx. Depression[] 7. Dehydration 8. Mild leukocytosis 13.7 9. 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 Discharge Summary Brief Hospital Course Allergies Allergies Coded Allergies Type Severity Reaction Last Updated Verified Penicillins Allergy Intermediate Swelling 01/12/19 No ketorolac Allergy Intermediate 01/12/19 Yes Vital Signs Vital Signs Date Time Temp Pulse Resp B/P (MAP) Pulse Ox O2 Delivery O2 Flow Rate FiO2 01/12/19 19:27 18 98 Room Air 01/12/19 18:55 98.8 90 Lab Results Laboratory Tests Test 01/12/19 19:15 White Blood Count 13.7 x10^3/uL (4.0-11.0) Red Blood Count 5.23 x10^6/uL (3.50-5.40) Hemoglobin 14.1 g/dL (12.0-15.5) Hematocrit 42.4 % (36.0-47.0) Mean Corpuscular Volume 81 fL (79-100) Mean Corpuscular Hemoglobin 27 pg (25-35) Mean Corpuscular Hemoglobin Concent 33 g/dL (31-37) Red Cell Distribution Width 15.0 % (11.5-14.5) Platelet Count 310 x10^3/uL (140-400) Neutrophils (%) (Auto) 53 % (31-73) Lymphocytes (%) (Auto) 40 % (24-48) Monocytes (%) (Auto) 4 % (0-9) Eosinophils (%) (Auto) 2 % (0-3) Basophils (%) (Auto) 1 % (0-3) Neutrophils # (Auto) 7.3 x10^3uL (1.8-7.7) Lymphocytes # (Auto) 5.5 x10^3/uL (1.0-4.8) Monocytes # (Auto) 0.6 x10^3/uL (0.0-1.1) Eosinophils # (Auto) 0.3 x10^3/uL (0.0-0.7) Basophils # (Auto) 0.2 x10^3/uL (0.0-0.2) Prothrombin Time 9.9 SEC (9.4-11.4) Prothromb Time International Ratio 1.0 (0.9-1.1) Activated Partial Thromboplast Time 26 SEC (23-33) Urine Collection Type Unknown Urine Color Yellow Urine Clarity Clear Urine pH 5.5 Urine Specific [place] 1.025 Urine Protein Trace (NEG-TRACE) Urine Glucose (UA) Neg mg/dL (NEG) Urine Ketones (Stick) Trace mg/dL (NEG) Urine Blood Neg (NEG) Urine Nitrite Neg (NEG) Urine Bilirubin Neg (NEG) Urine Urobilinogen Dipstick 0.2 mg/dL (0.2 mg/dL) Urine Leukocyte Esterase Neg (NEG) Urine RBC Rare /HPF (0-2) Urine WBC Rare /HPF (0-4) Urine Squamous Epithelial Cells Many /LPF Urine Bacteria Mod /HPF (0-FEW) Urine Mucus Marked /LPF Maternal Serum HCG Beta Subunit 1 mIU/mL (0-6) Sodium Level 140 mmol/L (136-145) Potassium Level 4.2 mmol/L (3.5-5.1) Chloride Level 102 mmol/L (98-107) Carbon Dioxide Level 28 mmol/L (21-32) Anion Gap 10 (6-14) Blood Urea Nitrogen 9 mg/dL (7-20) Creatinine 0.8 mg/dL (0.6-1.0) Estimated GFR (Cockcroft-Gault) 76.9 Glucose Level 96 mg/dL (70-99) Calcium Level 9.4 mg/dL (8.5-10.1) Total Bilirubin 0.4 mg/dL (0.2-1.0) Direct Bilirubin 0.1 mg/dL (0.0-0.2) Aspartate Amino Transf (AST/SGOT) 16 U/L (15-37) Alanine Aminotransferase (ALT/SGPT) 21 U/L (14-59) Alkaline Phosphatase 61 U/L (46-116) Creatine Kinase 27 U/L (26-192) Troponin I Quantitative < 0.017 ng/mL (0-0.055) Total Protein 7.8 g/dL (6.4-8.2) Albumin 3.9 g/dL (3.4-5.0) Amylase Level 66 U/L (25-115) Lipase 75 U/L (73-393) Urine Opiates Screen Neg (NEG) Urine Methadone Screen Neg (NEG) Urine Barbiturates Neg (NEG) Urine Phencyclidine Screen Neg (NEG) Urine Amphetamine/Methamphetamine Pos (NEG) Urine Benzodiazepines Screen Pos (NEG) Urine Cocaine Screen Neg (NEG) Urine Cannabinoids Screen Neg (NEG) Urine Ethyl Alcohol Neg (NEG) Brief Hospital Course Ms. Guevara is a 48 old female who presented with complaints of severe abdomen pain, cyclic vomiting gastroparesis. Admitted to Dr. Arguello for further eval. and tx. Discharge Information Condition at Discharge: Improved, Stable Dischare Medications Current Medications Lactated Ringer's 1,000 ml @ 1,000 mls/hr Q1H IV Last administered on at 19:26; Admin Dose 1,000 MLS/HR; Start 01/12/19 at 19:05; Stop 01/12/19 at 20:04; Status DC Ondansetron HCl (Zofran) 8 mg 1X ONCE IV Last administered on 01/12/19at 19:27 ; Admin Dose 8 MG; Start 01/12/19 at 19:30; Stop 01/12/19 at 19:31; Status DC Famotidine (Pepcid Vial) 20 mg 1X ONCE IVP Last administered on 01/12/19at 19: 26; Admin Dose 20 MG; Start 01/12/19 at 19:30; Stop 01/12/19 at 19:31; Status DC Morphine Sulfate (Morphine 10mg Syringe) 10 mg 1X ONCE SQ Last administered on 01/12/19at 19:27; Admin Dose 10 MG; Start 01/12/19 at 19:30; Stop 01/12/19 at 19:31; Status DC Iohexol (Omnipaque 240 Mg/ml) 50 ml 1X ONCE PO Last administered on 01/12/19at 20:58; Admin Dose 50 ML; Start 01/12/19 at 19:30; Stop 01/12/19 at 19:31; Status DC Iohexol (Omnipaque 300 Mg/ml) 75 ml 1X ONCE IV Last administered on 01/12/19at 20:58; Admin Dose 75 ML; Start 01/12/19 at 19:30; Stop 01/12/19 at 19:31; Status DC Info (Do NOT chart on this entry -- for MONITORING) 1 each PRN DAILY PRN MC SEE COMMENTS; Start 01/12/19 at 19:30; Stop 01/14/19 at 19:29 Active Scripts Active Inderal La (Propranolol Hcl) 60 Mg Cap.sa.24h 120 Mg PO DAILY 10 Days Reported Zofran Odt (Ondansetron) 4 Mg Tab.rapdis 4 Mg PO PRN Q6HRS PRN LAST DOSE GIVEN: DATE: TIME: NEXT DOSE DUE: DATE: TIME: Erythromycin (Erythromycin Base) 250 Mg Capsule.dr 175 Mg PO HS LAST DOSE GIVEN: DATE: TIME: NEXT DOSE DUE: DATE: TIME: Lamotrigine 25 Mg Tablet 25 Mg PO HS LAST DOSE GIVEN: DATE: TIME: NEXT DOSE DUE: DATE: TIME: Synthroid (Levothyroxine Sodium) 25 Mcg Tablet 25 Mcg PO HS LAST DOSE GIVEN: DATE: TIME: NEXT DOSE DUE: DATE: TIME: Xanax (Alprazolam) 1 Mg Tablet 1 Mg PO HS LAST DOSE GIVEN: DATE: TIME: NEXT DOSE DUE: DATE: TIME: Protonix (Pantoprazole Sodium) 40 Mg Tablet.dr 40 Mg PO HS LAST DOSE GIVEN: DATE: TIME: NEXT DOSE DUE: DATE: TIME: Metformin Hcl 500 Mg Tablet 1,000 Mg PO HS LAST DOSE GIVEN: DATE: TIME: NEXT DOSE DUE: DATE: TIME: Inderal La (Propranolol Hcl) 60 Mg Cap.sa.24h 120 Mg PO HS LAST DOSE GIVEN: DATE: TIME: NEXT DOSE DUE: DATE: TIME: Dragon Disclaimer This chart was dictated in whole or in part using Voice Recognition software in a busy, high-work load, and often noisy Emergency Department environment. It may contain unintended and wholly unrecognized errors or omissions. AMBER HODGES MD Jan 12, 2019 18:49
[2019-01-12] MEDS ORDERED: IV RINGERS SOLUTION,LACTATED 1,000 ML IV SCH (19:05)
[2019-01-12] MEDS ORDERED: CONTRAST GIVEN MC PRN (19:30)
[2019-01-12] MEDS ORDERED: ONDANSETRON PF 4 MG/2 ML VIAL. IV ONE ×2 (19:30→21:45)
[2019-01-12] MEDS ORDERED: IOHEXOL 300 MG/ML 75 ML VIAL. IV ONE (19:30)
[2019-01-12] MEDS ORDERED: MORPHINE SULFATE 10 MG/ML SYRINGE. SQ ONE (19:30)
[2019-01-12] MEDS ORDERED: IOHEXOL 240 MG/ML 50ML VIAL. PO ONE (19:30)
[2019-01-12] MEDS ORDERED: FAMOTIDINE 20 MG/2 ML VIAL IVP ONE (19:30)
[2019-01-12 19:39] LABS: BASO # 0.2 x10^3/uL (0.0-0.2); BASO % 1 % (0-3); EOS # 0.3 x10^3/uL (0.0-0.7); EOS % 2 % (0-3); HEMATOCRIT 42.4 % (36.0-47.0); HEMOGLOBIN 14.1 g/dL (12.0-15.5); LYMPH # 5.5 x10^3/uL (1.0-4.8); LYMPH % 40 % (24-48); MEAN CORPUSCULAR HEMOGLOBIN 27 pg (25-35); MEAN CORPUSCULAR HGB CONC 33 g/dL (31-37); MEAN CORPUSCULAR VOLUME 81 fL (79-100); MONO # 0.6 x10^3/uL (0.0-1.1); MONO % 4 % (0-9); NEUT # 7.3 x10^3uL (1.8-7.7); NEUT % 53 % (31-73); PLATELET COUNT 310 x10^3/uL (140-400); RED BLOOD COUNT 5.23 x10^6/uL (3.50-5.40); WHITE BLOOD COUNT 13.7 x10^3/uL (4.0-11.0)
[2019-01-12 19:48] LABS: BARBITURATES NEG (NEG); BENZODIAZEPINES POS (NEG); CANNABINOIDS NEG (NEG); COCAINE NEG (NEG); METHADONE NEG (NEG); OPIATES NEG (NEG); PHENCYCLIDINE NEG (NEG)
[2019-01-12 19:49] LABS: AMPHETAMINE/METHAMPHETAMINE POS (NEG)
[2019-01-12 19:53] LABS: BILIRUBIN,URINE NEG (NEG); CLARITY,URINE CLEAR; COLOR,URINE YELLOW; GLUCOSE,URINE NEG (NEG)
[2019-01-12 19:54] LABS: BACTERIA,URINE MOD /HPF (0-FEW); NITRITE,URINE NEG (NEG); RBC,URINE RARE /HPF (0-2); SQUAMOUS EPITHELIAL CELL,UR MANY /LPF; UROBILINOGEN,URINE 0.2 mg/dL (0.2 mg/dL); WBC,URINE RARE /HPF (0-4)
[2019-01-12 19:55] LABS: ALBUMIN 3.9 g/dL (3.4-5.0); CALCIUM 9.4 mg/dL (8.5-10.1); CREATININE 0.8 mg/dL (0.6-1.0); DIRECT BILIRUBIN 0.1 mg/dL (0.0-0.2); GFR 76.9; POTASSIUM 4.2 mmol/L (3.5-5.1); TOTAL BILIRUBIN 0.4 mg/dL (0.2-1.0); TOTAL PROTEIN 7.8 g/dL (6.4-8.2)
[2019-01-12] MEDS ORDERED: MORPHINE SULFATE 10 MG/ML SYRINGE. SQ PRN (20:15)
[2019-01-12] MEDS ORDERED: ONDANSETRON PF 4 MG/2 ML VIAL. IV PRN (20:15)
[2019-01-12] MEDS: FAMOTIDINE 20 MG/2 ML VIAL IVP SCH (21:00)
--- NOTE | 2019-01-12 21:31 | RAD ---
PQRS Compliance Statement: One or more of the following individualized dose reduction techniques were utilized for this examination: 1. Automated exposure control 2. Adjustment of the mA and/or kV according to patient size 3. Use of iterative reconstruction technique CT abdomen/pelvis with contrast 01/12/2019 8:54 PM INDICATION: Left upper quadrant abdominal pain, nausea and vomiting with diarrhea. History of gastroparesis, diabetes and hypertension. COMPARISON: CT abdomen/pelvis July 22, 2018 TECHNIQUE: Multiple axial CT images of the abdomen and pelvis were obtained after the intravenous administration of 75 mL Omnipaque 300. Coronal and sagittal reformats are provided. FINDINGS: Lung bases are clear. Heart size is within normal limits. Liver, spleen, bilateral adrenal glands and pancreas are normal in appearance. Gallbladder is surgically absent. No intrahepatic or extrahepatic biliary ductal dilatation. The abdominal aorta is normal in course and caliber. There are no pathologically enlarged lymph nodes in the abdomen and pelvis. There is no abdominal free fluid. There is no free intraperitoneal air. The kidneys enhance symmetrically. There is no suspicious renal mass. There is no hydronephrosis. There are no suspected calculi within the kidneys, ureters or urinary bladder. Few scattered colonic diverticula are present. Oral contrast was administered. Opacified bowel loops demonstrate normal mucosal fold pattern. Small and large bowel are normal in caliber. There is no evidence for bowel obstruction. There are no pericolonic inflammatory changes. A normal, nondilated appendix is visualized without adjacent inflammatory changes. Mild distention of the stomach which is completely opacified with oral contrast. Oral contrast appears to extend into the proximal to mid jejunum. Urinary bladder is within normal limits given degree of distention. No suspicious pelvic mass is identified. No suspicious osseous abnormality is identified. IMPRESSION: 1. Mild distention of the stomach with oral contrast. Findings may be secondary to gastroparesis. 2. No evidence for bowel obstruction or inflammation. 3. Status post cholecystectomy without evidence for intrahepatic or extrahepatic biliary ductal dilatation. 4. Mild colonic diverticulosis. Electronically signed by: Olivia Temple MD (01/12/2019 9:28 PM) [facility]
--- NOTE | 2019-01-12 22:00 | NUR ---
ADMISSION: The patient, JEFF SANDERS, 48 y/o, F admitted by ASAEL YEAGER MD, was given written information regarding hospital policies, unit procedures and contact persons. Pt arrived to room 117 via gurney, accompanied by [facility] and . Pt here for c/o N/V, dehydration, and gastroparesis. Pt reports multiple episodes of vomiting since early this afternoon, along with stabbing LUQ pain. Pt nauseous and retching upon arrival to unit. Zofran given prior to transport without relief. Pt to remain NPO with LR infusing at 200cc/hr. Reviewed PMH and home meds with patient. Pt lives at home with . Low risk for VTE. Flu vaccine is UTD. Oriented pt to room and unit routines. Discussed POC, V/U. Valuables were checked and logged. Left in room with patient.
[2019-01-12 22:03] VITALS: BP 151/106
[2019-01-12] MEDS: IV RINGERS SOLUTION,LACTATED 1,000 ML IV SCH (22:26)
--- NOTE | 2019-01-12 22:57 | RAD ---
ACUTE ABDOMEN SERIES History: Left upper quadrant abdominal pain, diarrhea, nausea and vomiting, history of gastroparesis Comparison: 08/28/2018 chest radiograph and acute abdominal series July 19, 2017 Findings: Single upright view of the abdomen, 2 supine AP views of the abdomen, single view of the chest are submitted. There is no infiltrate, pleural fluid, pneumothorax. No free air is identified. There has been cholecystectomy. There is an overall nonobstructive bowel gas pattern. Impression: 1. No acute radiographic abnormality is identified. Electronically signed by: Sherwin Kirkland MD (01/12/2019 10:54 PM) [facility]
[2019-01-13] MEDS: METOCLOPRAMIDE HCL 10 MG/2 ML VIAL. IV PRN ×3 (00:11→14:32)
--- NOTE | 2019-01-13 01:42 | NUR ---
PRN Reglan IVP given for continued N/V. Pt also reported worsening LUQ pain, rates 9/10. Morphine 10mg SQ administered as indicated. Pt is now resting with eyes closed.
[2019-01-13] MEDS: IV RINGERS SOLUTION,LACTATED 1,000 ML IV SCH (03:33)
[2019-01-13 05:27] VITALS: BP 144/87
[2019-01-13] MEDS: IPRATRPIUM/ALBUTEROL 0.5/2.5MG 3 ML NEBU. NEB SCH ×2 (05:32→10:22)
[2019-01-13 06:49] LABS: BASO % 0 % (0-3); EOS # 0.2 x10^3/uL (0.0-0.7); EOS % 2 % (0-3); HEMATOCRIT 37.5 % (36.0-47.0); HEMOGLOBIN 12.5 g/dL (12.0-15.5); LYMPH # 4.8 x10^3/uL (1.0-4.8); LYMPH % 41 % (24-48); MEAN CORPUSCULAR HEMOGLOBIN 27 pg (25-35); MEAN CORPUSCULAR HGB CONC 33 g/dL (31-37); MEAN CORPUSCULAR VOLUME 81 fL (79-100); MONO # 0.6 x10^3/uL (0.0-1.1); MONO % 5 % (0-9); NEUT % 52 % (31-73); PLATELET COUNT 252 x10^3/uL (140-400); RED BLOOD COUNT 4.65 x10^6/uL (3.50-5.40); RED CELL DISTRIBUTION WIDTH 14.7 % (11.5-14.5); WHITE BLOOD COUNT 11.6 x10^3/uL (4.0-11.0)
[2019-01-13 06:58] LABS: CALCIUM 8.5 mg/dL (8.5-10.1); CREATININE 0.7 mg/dL (0.6-1.0); GFR 89.7; POTASSIUM 3.3 mmol/L (3.5-5.1)
[2019-01-13] MEDS: FAMOTIDINE 20 MG/2 ML VIAL IVP SCH (07:57)
[2019-01-13 10:45] VITALS: BP 116/74
[2019-01-13] MEDS: PANTOPRAZOLE IV 40 MG VIAL. IVP SCH ×2 (12:36→20:01)
[2019-01-13 15:13] VITALS: BP 131/74
[2019-01-13] MEDS: POTASSIUM CL 40MEQ IN 0.9%NACL 1,000 ML IV SCH ×2 (15:24→20:03)
--- NOTE | 2019-01-13 16:04 | HP ---
ADMIT DATE: 01/12/2019 HISTORY OF PRESENT ILLNESS: The patient is a 48-year-old female patient, who was in the Emergency Room complaining of abdominal pain, hurting all over my abdomen, vomiting. This started about 5 days ago. Apparently, she is known to have history of gastroparesis. The patient denied any ill contact or taking any bad food. She rated her pain on arrival severe as 10/10 with no finding of focal or local tenderness. Denied any recent travel. She was extensively evaluated in the Emergency Room. Her lab work shows mild leukocytosis. Her chemistry was unremarkable. Urinalysis was basically unremarkable. Her toxic screen, however, was positive for benzodiazepines, amphetamine, methamphetamine. She was admitted, started on IV fluid and antiemetic as well as proton pump inhibitor. PAST MEDICAL HISTORY: Significant for type 2 diabetes mellitus, hypothyroidism, hypertension, and gastroparesis. PAST SURGICAL HISTORY: Significant for cholecystectomy, total abdominal hysterectomy, bilateral salpingo-oophorectomy and eye surgery. ALLERGIES: She is allergic to PENICILLIN, AND KETOROLAC. MEDICATIONS: She is currently on Inderal 120 mg at bedtime, lamotrigine 25 mg at bedtime, alprazolam 1 mg at bedtime, Protonix 40 mg at bedtime, metformin 1000 mg twice a day and levothyroxine 25 mcg once a day. FAMILY HISTORY: She has 2 brothers and 1 sister, younger and healthy. Her father is alive, has diabetes, COPD, and underwent coronary artery bypass graft surgery and mother is alive and has epilepsy. SOCIAL HISTORY: She is , lives with her . She has a total of 7 children, 2 daughters and 5 boys. She never smoked, does not drink alcohol or use any recreational drugs. She is currently on disability. REVIEW OF SYSTEMS: The patient denied any blurring of vision, cataract, glaucoma or macular degeneration. Denied any earache, tinnitus or sensorineural deafness. Denied any nosebleeds, stuffy nose or postnasal drip. Denied any sore throat, sore tongue, toothache, hoarseness of voice or difficulty swallowing. Did complain of recurrent bouts of nausea and vomiting. Has had episodes of diarrhea; however, she denied any hematemesis, melena, hematochezia. Denied any dysuria, frequency, hematuria. Denied any chest pain, shortness of breath, orthopnea, paroxysmal nocturnal dyspnea. Denied any cough, phlegm or hemoptysis. Denied any chills, rigors or fever. PHYSICAL EXAMINATION: GENERAL: On arrival to the Emergency Room, she looked well. She was slightly tachypneic, anxious, but there was no pallor, jaundice, or cyanosis. No lymphadenopathy, no thyromegaly. No jugular venous distension. No lower limb edema. VITAL SIGNS: Her heart rate was 90, blood pressure was 161/91, temperature was 98.8, respiratory rate was 28 and oxygen saturation was 97%. HEAD, EYES, EARS, NOSE AND THROAT: Showed normocephalic, atraumatic. NECK: Supple. HEART: Showed normal first and second heart sounds with no gallop, rub or murmur. CHEST: Clear to auscultation. No crepitation or rhonchi. ABDOMEN: Distended, soft, nontender. There is definitely no guarding or rigidity. No organomegaly. All hernial orifices intact. Bowel sounds normal. NEUROLOGIC: She was awake, alert, responding appropriately. All her cranial nerves are intact. EXTREMITIES: She moves all her extremities without difficulty. She ambulates without assistance or assistive devices. LABORATORY DATA: On arrival to the Emergency Room, she has had extensive lab work, which showed that her white cell count was 13,700, hemoglobin 14, hematocrit 42, MCV 81 and platelet count of 310,000. Her prothrombin time was 9.9, INR of 1, aPTT was 26. Her chemistry showed a serum sodium of 140, potassium 4.2, chloride 102, bicarbonate 28, anion gap of 10, BUN 9, creatinine 0.8, estimated GFR was 77 mL per minute. His glucose was 96, calcium was 9.4. Total bilirubin, AST, ALT, alkaline phosphatase were normal. Her total protein was 7.8, albumin was 3.9. Amylase and lipase were normal. Her urinalysis showed the urine was yellow, clear with a pH of 5.5, specific gravity of 1.025. There was trace of protein, negative for glucose, trace of ketones, negative for blood, nitrite and leukocyte esterase. There are rare RBCs, rare wbc's, and no bacteria. Her toxic screen was negative for amphetamine, methamphetamine as well as benzodiazepine, negative for opiates, methadone, barbiturates, phencyclidine, cocaine, cannabinoids and ethyl alcohol. Her acute abdomen series showed no acute radiographic abnormality identified. Head CT scan of the abdomen and pelvis showed that the patient has mild distention of the stomach with oral contrast. Findings may be secondary to gastroparesis. No evidence of bowel obstruction or inflammation, status post cholecystectomy without evidence of intrahepatic or extrahepatic biliary ductal dilatation, mild colonic diverticulosis. IMPRESSION: In summary, this is a 48-year-old female patient who was admitted with exacerbation of her diabetic gastroparesis. The patient has mild leukocytosis. PLAN: To continue with IV fluid, IV antiemetics and pain medication. Once her symptoms improved, we will start her on a clear liquid diet and advance as tolerated. ASAEL YEAGER MD DR: FALLON/anne JOB#: [id number] / [id number]
[2019-01-13] MEDS: METOCLOPRAMIDE HCL 10 MG/2 ML VIAL. IV SCH (20:01)
[2019-01-13] MEDS ORDERED: ONDANSETRON PF 4 MG/2 ML VIAL. IV PRN (20:30)
[2019-01-13 20:35] VITALS: BP 158/97
[2019-01-13] MEDS ORDERED: ALPRAZolam 0.5 MG TABLET PO SCH (21:00)
--- NOTE | 2019-01-13 21:44 | PN ---
DATE: 01/13/2019 SUBJECTIVE: The patient is resting, slightly propped up in bed, continued to complain of nausea and vomiting. Denied any abdominal pain. Denied any diarrhea. OBJECTIVE: GENERAL: When I examined her this afternoon, she looked well and was clearly in no apparent respiratory distress. No pallor, jaundice, cyanosis, or thyromegaly. No jugular venous distension. No lower limb edema. VITAL SIGNS: Her heart rate was 62, blood pressure was 116/74, temperature was 97.9, respiratory rate 20, and oxygen saturation was 99%. The rest of clinical examination is stable. Her intake was 1900, no output was recorded. LABORATORY DATA: Her lab work this morning showed a white cell count of 11,600, hemoglobin 12, hematocrit 37, MCV 81 and platelet count of 252,000. Her chemistry showed a serum sodium 139, potassium 3.3, chloride 101, bicarbonate 28, anion gap of 10, BUN 6, creatinine was 0.7, estimated GFR was 90 mL per minute. Her glucose 92, calcium was 8.5. ASSESSMENT: Recurrent bouts of nausea, vomiting secondary to diabetic gastroparesis. Other medical problems include type 2 diabetes mellitus, hypothyroidism, hypertension. She has hypokalemia. PLAN: My plan is to start her on Reglan 10 mg before meals and bedtime. Continue with IV fluid with replenish the potassium and start her on a clear liquid diet and advance as tolerated. ASAEL YEAGER MD DR: FALLON/anne JOB#: [id number] / [id number]
--- NOTE | 2019-01-13 22:56 | EKG ---
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
[2019-01-13 23:20] VITALS: BP_SYST 124; BP_SYST 158; BP_DIAS 73; BP_DIAS 97
[2019-01-14 05:56] VITALS: BP 122/78
[2019-01-14 06:50] LABS: CREATININE 0.7 mg/dL (0.6-1.0); GFR 89.7; POTASSIUM 3.8 mmol/L (3.5-5.1)
[2019-01-14] MEDS: METOCLOPRAMIDE HCL 10 MG/2 ML VIAL. IV SCH (08:00)
[2019-01-14] MEDS: PANTOPRAZOLE IV 40 MG VIAL. IVP SCH (08:33)
--- NOTE | 2019-01-14 10:43 | DS ---
DATE OF DISCHARGE: 01/14/2019 HOSPITAL COURSE: The patient is a 48-year-old female patient, who was admitted with intractable nausea and vomiting, diffuse abdominal pain. She was extensively investigated. All her lab works were within acceptable range. Initially, her white cell count was slightly elevated; however, that trend down. Her chemistry was unremarkable. Her serum lipase was normal. Urinalysis was also unremarkable. Her toxic screen was positive for amphetamine, methamphetamine, but the patient vehemently denied using any amphetamine. We did start her on Reglan 10 mg before meals and at bedtime and IV fluid. I also start her on clear liquid diet. The patient did very well. She has had no further nausea and vomiting. She slept very well overnight, tolerating her diet and requesting that she can be discharged. PHYSICAL EXAMINATION: GENERAL: When I saw her this morning, she was sitting on the edge of the bed comfortably, in no apparent distress. No pallor, jaundice, cyanosis or thyromegaly. No jugular venous distention. No limb edema. VITAL SIGNS: Her heart rate was 71, blood pressure was 122/78, temperature was 98.5, respiratory rate was 16, and oxygen saturation was 96%. HEAD, EYES, EARS, NOSE AND THROAT: Normocephalic, atraumatic. NECK: Supple. HEART: Normal first and second heart sounds. No gallop, rub or murmur. CHEST: Clear to auscultation. No crepitation or rhonchi. ABDOMEN: Distended, soft, nontender. No guarding or rigidity. No organomegaly. All hernial orifices intact. Bowel sounds normal. NEUROLOGIC: She was awake, alert, responding appropriately. Consent extremities without difficulty. She ambulates without assistance or assistive devices. Her intake was 3800, no output was recorded. LABORATORY DATA: As of this morning; her serum sodium 140, potassium 3.8, chloride 105, bicarbonate 26, anion gap of 9, BUN 5, creatinine 0.7, estimated GFR was 19. Her glucose 81, calcium was 8. Total protein was 61. DISCHARGE MEDICATIONS: She was discharged home to continue on alprazolam 1 mg at bedtime, lamotrigine 25 mg at bedtime, levothyroxine sodium 25 mcg once a day, metformin 1000 mg twice a day with meals, Protonix 40 mg once a day and propranolol 120 mg at bedtime. FINAL DISCHARGE DIAGNOSES: 1. Intractable nausea, vomiting, likely due to diabetic gastroparesis. 2. Type 2 diabetes mellitus. 3. Hyperthyroidism. 4. Hypertension. ASAEL YEAGER MD DR: FALLON/anne JOB#: [id number] / [id number]
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
== END 2019-01-14 11:00 | disposition home or self-care (01) | DRG 74 ==
LOC: ER 18:38 → 1 SOUTH 20:00
PROVIDERS: ADMIT Internal Medicine; ATTEND Internal Medicine
DX: E11.43 Type 2 diabetes mellitus with diabetic autonomic (poly)neuropathy (principal); I10 Essential (primary) hypertension; F41.9 Anxiety disorder, unspecified; F32.9 Major depressive disorder, single episode, unspecified; E03.9 Hypothyroidism, unspecified; E78.00 Pure hypercholesterolemia, unspecified; F43.10 Post-traumatic stress disorder, unspecified; E86.0 Dehydration; H54.61 Unqualified visual loss, right eye, normal vision left eye; D72.829 Elevated white blood cell count, unspecified; K31.84 Gastroparesis; E87.6 Hypokalemia; Z90.710 Acquired absence of both cervix and uterus; Z90.49 Acquired absence of other specified parts of digestive tract; Z83.3 Family history of diabetes mellitus; Z82.5 Family history of asthma and other chronic lower respiratory diseases; Z82.0 Family history of epilepsy and other diseases of the nervous system; Z88.6 Allergy status to analgesic agent; Z88.0 Allergy status to penicillin
CPT/HCPCS: 36415; 74022; 74177; 80048; 80076; 80307; 81001; 82150; 82550; 82947; 83690; 84484; 84702; 85025; 85610; 85730; 87086; 93005; 94640; 96361; 96374; 96375; 96376; C9113; J2270; J2405; J2765; J3490; J7120; J7620; Q9966; Q9967; 99285-25

== ENCOUNTER 2019-06-16 14:12 | Emergency (ER) | payer MEDICARE ==
[~2019-06-16] VITALS: Ht 157.5 cm; Wt 63.5 kg
[~2019-06-16 14:12] MED LIST changes: -PROM12.56 PO; +PROM12.58 PO
[2019-06-16 14:31] VITALS: BP 186/98
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
[2019-06-16] MEDS ORDERED: HYDROcodone/APAP 5/325MG 1 TAB TABLET PO ONE (15:15)
== END 2019-06-16 15:42 | disposition home or self-care (01) ==
LOC: ER 14:12
DX: S50.01XA Contusion of right elbow, initial encounter (principal); S00.83XA Contusion of other part of head, initial encounter; E11.9 Type 2 diabetes mellitus without complications; I10 Essential (primary) hypertension; E03.9 Hypothyroidism, unspecified; Z88.0 Allergy status to penicillin; Z88.6 Allergy status to analgesic agent; Z88.8 Allergy status to other drugs, medicaments and biological substances; Y04.0XXA Assault by unarmed brawl or fight, initial encounter; Y93.89 Activity, other specified; Y92.89 Other specified places as the place of occurrence of the external cause; Y99.8 Other external cause status
CPT/HCPCS: 70486; 73080; 99284-25

== ENCOUNTER 2019-07-07 19:09 | Emergency (ER) | payer MEDICARE ==
[~2019-07-07] VITALS: Ht 157.5 cm; Wt 63.0 kg
[2019-07-07] MEDS ORDERED: IV NORMAL SALINE 1,000ML 1,000 ML IV ONE (19:30)
[2019-07-07] MEDS ORDERED: ONDANSETRON PF 4 MG/2 ML VIAL. IV ONE (19:30)
[2019-07-07] MEDS ORDERED: MORPHINE SULFATE 4 MG/ML DISP.SYRIN. IV ONE (19:30)
[2019-07-07] MEDS ORDERED: IOHEXOL 300 MG/ML 75 ML VIAL. IV ONE (19:30)
--- NOTE | 2019-07-07 19:40 | PHYS DOC ---
Past History Past Medical History: Anxiety, Depression, Diabetes, Hypertension, Hypothyroid, Other Past Surgical History: Cholecystectomy, Hysterectomy, Tonsillectomy, Other Smoking: Non-smoker Alcohol Use: Rarely Drug Use: None Adult General Chief Complaint Chief Complaint: ABDOMINAL PAIN HPI HPI 49-year-old female presents to abdominal pain. The patient has been having diarrhea and right upper quadrant pain for the last 3 days. It has gotten worse today. The pain is a 10 out of 10. She is also vomiting today with solids and liquids. The patient has frequent vomiting, but usually only with solids. She does not have a gallbladder. Patient is a history of gastroparesis and she thought this was just a flareup of that. Pain is in her right flank and more so her asked her to come the emergency room. The patient still has her appendix. She does not of a history of kidney stones. She denies fever or chills. No trauma or falls. Review of Systems Review of Systems Constitutional: Denies fever or chills [] Eyes: Denies change in visual acuity, redness, or eye pain [] HENT: Denies nasal congestion or sore throat [] Respiratory: Denies cough or shortness of breath [] Cardiovascular: No additional information not addressed in HPI [] GI: Sided abdominal pain, nausea, vomiting, diarrhea [] : Denies dysuria or hematuria [] Musculoskeletal: Denies back pain or joint pain [] Integument: Denies rash or skin lesions [] Neurologic: Denies headache, focal weakness or sensory changes [] Endocrine: Denies polyuria or polydipsia [] All other systems were reviewed and found to be within normal limits, except as documented in this note. Current Medications Current Medications Current Medications Medications (Trade) Dose Ordered Sig/Shanita Start Time Stop Time Status Last Admin Dose Admin Iohexol (Omnipaque 300 Mg/ml) 75 ml 1X ONCE 07/07/19 19:30 07/07/19 19:34 DC Morphine Sulfate (Morphine 4mg Syringe) 4 mg 1X ONCE 07/07/19 19:30 07/07/19 19:31 DC Ondansetron HCl (Zofran) 8 mg 1X ONCE 07/07/19 19:30 07/07/19 19:31 DC Sodium Chloride 1,000 ml @ 1,000 mls/hr 1X ONCE 07/07/19 19:30 07/07/19 20:29 Allergies Allergies Allergies Coded Allergies Type Severity Reaction Last Updated Verified Penicillins Allergy Intermediate Swelling 01/12/19 No ketorolac Allergy Intermediate 01/12/19 Yes tramadol Allergy Unknown 06/16/19 Yes Physical Exam Physical Exam Constitutional: Well developed, well nourished, mild acute distress, non-toxic appearance. [] HENT: Normocephalic, atraumatic, bilateral external ears normal, oropharynx moist, no oral exudates, nose normal. [] Eyes: PERRLA, EOMI, conjunctiva normal, no discharge. [] Neck: Normal range of motion, no tenderness, supple, no stridor. [] Cardiovascular:Heart rate regular rhythm, no murmur [] Lungs & Thorax: Bilateral breath sounds clear to auscultation [] Abdomen: Bowel sounds normal, soft, mild to moderate right-sided tenderness, no masses, no pulsatile masses. [] Skin: Warm, dry, no erythema, no rash. [] Back: No tenderness, no CVA tenderness. [] Extremities: No tenderness, no cyanosis, no clubbing, ROM intact, no edema. [] Neurologic: Alert and oriented X 3, normal motor function, normal sensory function, no focal deficits noted. [] Psychologic: Affect normal, judgement normal, mood tearful. [] Current Patient Data Vital Signs Vital Signs Date Time Temp Pulse Resp B/P (MAP) Pulse Ox O2 Delivery O2 Flow Rate FiO2 07/07/19 19:22 97.9 62 20 98 Room Air EKG EKG [] Radiology/Procedures Radiology/Procedures [] Impressions: Exam: CT abdomen and pelvis with contrast INDICATION: Right upper quadrant pain TECHNIQUE: Sequential axial images through the abdomen and pelvis obtained following the administration of 75 mL of Omni 300 IV contrast. Sagittal and coronal reformatted images were reconstructed from the axial data and reviewed. Comparisons: 01/12/2019 FINDINGS: Heart size is normal. No pericardial effusion. Visualized lung bases are clear. No pleural effusion. Mild intrahepatic or ductal dilatation. Otherwise, Liver, spleen, pancreas and adrenals are unremarkable. Gallbladder is surgically absent. Kidneys demonstrate symmetric enhancement. No perinephric inflammation or hydronephrosis. No renal or ureteral calculi are identified. Bladder is distended and appears thin walled. Uterus is absent. No abnormal adnexal mass. Large and small bowel are unremarkable. No obstruction. No free intra-abdominal air or fluid. Abdominal aorta has a normal course and caliber. Abdominal vasculature is patent. No enlarged intra-abdominal lymph nodes are identified. No suspicious osseous lesions or acute fractures. IMPRESSION: Mild intrahepatic ductal dilatation which may represent biliary reservoir can cholecystectomy. Correlate with LFTs. Exposure: One or more of the following in the visualized dose reduction techniques were utilized for this examination: 1. Automated exposure control 2. Adjustment of the MA and/or KV according to patient size 3. Use of iterative of reconstructive technique Electronically signed by: Josep Jesus MD (07/07/2019 8:53 PM) [facility] DICTATED AND SIGNED BY: JOSEP JESUS MD DATE: 07/07/192052 CC: CHELY HUITRON MD; SVITLANA LOFTON DO ~ Course & Med Decision Making Course & Med Decision Making Pertinent Labs and Imaging studies reviewed. (See chart for details) The patient's labs are unremarkable. Her CT of the abdomen and pelvis is negative for acute findings. This seems like it is just exacerbation of her chronic abdominal pain condition and gastroparesis. I gave her 4 mg of morphine as well as 8 mg of Zofran IV. This did help with the pain. She got 1 L normal saline. She is still nauseous I will give her an additional 10 mg of Compazine. The patient does not want to stay in the hospital. I will discharge her with a short course of [place] 5/325. We will give a dose here before she leaves. She will be has Zofran and Benadryl at home for nausea. She is stable for discharge at this time. [] Dragon Disclaimer Dragon Disclaimer This electronic medical record was generated, in whole or in part, using a voice recognition dictation system. Departure Departure: Impression: Primary Impression: Right lower quadrant abdominal pain Additional Impression: Intractable nausea and vomiting Disposition: HOME, SELF-CARE Condition: STABLE Referrals: CHELY HUITRON MD (PCP) Patient Instructions: Abdominal Pain, Women Scripts Hydrocodone Bit/Acetaminophen (NORCO 5-325 TABLET) 1 Each Tablet 1 TAB PO PRN Q6HRS PRN for PAIN, #10 TAB 0 Refills Prov: SVITLANA LOFTON DO 07/07/19 Problem Qualifiers Additional Impression: Intractable nausea and vomiting Vomiting type: unspecified Qualified Codes: R11.2 - Nausea with vomiting, unspecified SVITLANA LOFTON DO Jul 07, 2019 19:39
[2019-07-07 19:56] LABS: BASO % 0 % (0-3); EOS # 0.2 x10^3/uL (0.0-0.7); EOS % 2 % (0-3); HEMATOCRIT 37.9 % (36.0-47.0); HEMOGLOBIN 12.5 g/dL (12.0-15.5); LYMPH # 5.1 x10^3/uL (1.0-4.8); LYMPH % 43 % (24-48); MEAN CORPUSCULAR HEMOGLOBIN 27 pg (25-35); MEAN CORPUSCULAR HGB CONC 33 g/dL (31-37); MEAN CORPUSCULAR VOLUME 83 fL (79-100); MONO # 0.7 x10^3/uL (0.0-1.1); MONO % 6 % (0-9); NEUT % 50 % (31-73); PLATELET COUNT 297 x10^3/uL (140-400); RED BLOOD COUNT 4.56 x10^6/uL (3.50-5.40); RED CELL DISTRIBUTION WIDTH 14.2 % (11.5-14.5); WHITE BLOOD COUNT 12.1 x10^3/uL (4.0-11.0)
[2019-07-07 20:09] LABS: ALBUMIN 3.9 g/dL (3.4-5.0); ALBUMIN/GLOBULIN RATIO 1.2 (1.0-1.7); CALCIUM 8.5 mg/dL (8.5-10.1); CREATININE 0.9 mg/dL (0.6-1.0); GFR 66.8; POTASSIUM 3.5 mmol/L (3.5-5.1); TOTAL BILIRUBIN 0.6 mg/dL (0.2-1.0); TOTAL PROTEIN 7.1 g/dL (6.4-8.2)
--- NOTE | 2019-07-07 20:56 | RAD ---
Exam: CT abdomen and pelvis with contrast INDICATION: Right upper quadrant pain TECHNIQUE: Sequential axial images through the abdomen and pelvis obtained following the administration of 75 mL of Omni 300 IV contrast. Sagittal and coronal reformatted images were reconstructed from the axial data and reviewed. Comparisons: 01/12/2019 FINDINGS: Heart size is normal. No pericardial effusion. Visualized lung bases are clear. No pleural effusion. Mild intrahepatic or ductal dilatation. Otherwise, Liver, spleen, pancreas and adrenals are unremarkable. Gallbladder is surgically absent. Kidneys demonstrate symmetric enhancement. No perinephric inflammation or hydronephrosis. No renal or ureteral calculi are identified. Bladder is distended and appears thin walled. Uterus is absent. No abnormal adnexal mass. Large and small bowel are unremarkable. No obstruction. No free intra-abdominal air or fluid. Abdominal aorta has a normal course and caliber. Abdominal vasculature is patent. No enlarged intra-abdominal lymph nodes are identified. No suspicious osseous lesions or acute fractures. IMPRESSION: Mild intrahepatic ductal dilatation which may represent biliary reservoir can cholecystectomy. Correlate with LFTs. Exposure: One or more of the following in the visualized dose reduction techniques were utilized for this examination: 1. Automated exposure control 2. Adjustment of the MA and/or KV according to patient size 3. Use of iterative of reconstructive technique Electronically signed by: Josep Ojeda MD (07/07/2019 8:53 PM) [facility]
[2019-07-07 20:57] VITALS: BP 175/104
[2019-07-07] MEDS ORDERED: HYDROcodone/APAP 5/325MG 1 TAB TABLET PO ONE (22:00)
[2019-07-07] MEDS ORDERED: PROCHLORPERAZINE 10 MG/2 ML VIAL. IV ONE (22:00)
[2019-07-07] MEDS ORDERED: HYDR-3165 PO (22:04)
== END 2019-07-07 22:08 | disposition home or self-care (01) ==
LOC: ER 19:09
DX: R10.11 Right upper quadrant pain (principal); R11.2 Nausea with vomiting, unspecified; R19.7 Diarrhea, unspecified; E11.9 Type 2 diabetes mellitus without complications; I10 Essential (primary) hypertension; E03.9 Hypothyroidism, unspecified; Z90.49 Acquired absence of other specified parts of digestive tract; Z90.710 Acquired absence of both cervix and uterus; Z88.0 Allergy status to penicillin; Z88.6 Allergy status to analgesic agent; Z88.8 Allergy status to other drugs, medicaments and biological substances
CPT/HCPCS: 36415; 74177; 80053; 83690; 85025; 96361; 96374; 96375; 99285; J0780; J2270; J2405; Q9967; J7030

== ENCOUNTER → 2020-06-13 | Outpatient (CLI) | payer MEDICARE ==
[~2020-06-13] MED LIST changes: +ERYT250C33 PO; -ERYT250C8 PO; +PROP60CA36 PO; -PROP60CA8 PO
--- NOTE | 2020-06-13 16:42 | RAD ---
INDICATION: Reason: INJURY 05/25/20, LEFT SHOULDER PAIN / Spl. Instructions: / History: COMPARISON: None. IMPRESSION: Left shoulder: 4 views obtained. No evidence of acute fracture or dislocation. Electronically signed by: Real Ortega MD (06/13/2020 4:39 PM) [id number]
== END ==
LOC: DXRAD 15:55
PROVIDERS: ATTEND Physician Assistant
DX: M25.512 Pain in left shoulder (principal)
CPT/HCPCS: 73030

== ENCOUNTER 2020-08-30 11:58 | Emergency (ER) | payer MEDICARE ==
[~2020-08-30 11:58] MED LIST changes: -ASPI-612 PO; +ASPI-889 PO
--- NOTE | 2020-08-30 12:50 | PHYS DOC ---
Past History Past Medical History: Anxiety, Depression, Diabetes, Hypertension, Hypothyroid, Other Past Surgical History: Cholecystectomy, Hysterectomy, Tonsillectomy, Other Smoking: Non-smoker Alcohol Use: Rarely Drug Use: None General Adult EDM: Chief Complaint: hypotension HPI: HPI: 50-year-old female presents with abdominal pain in the epigastric area and concern for hypotension. She had her home health person, today and she was f ound to be hypotensive. She advised patient, emergency room. Patient tells me she has gastroparesis at baseline and chronic diarrhea. She has been having more epigastric abdominal pain the last couple of days. Her gallbladder is already been removed. She denies fever or chills. She has had multiple episodes of vomiting. Review of Systems: Review of Systems: Constitutional: Denies fever or chills Eyes: Denies change in visual acuity HENT: Denies nasal congestion or sore throat Respiratory: Denies cough or shortness of breath Cardiovascular: Denies chest pain or edema GI: Epigastric abdominal pain, nausea, vomiting. Denies bloody stools or diarrhea : Denies dysuria Musculoskeletal: Denies back pain or joint pain Integument: Denies rash Neurologic: Denies headache, focal weakness or sensory changes Endocrine: Denies polyuria or polydipsia Lymphatic: Denies swollen glands Psychiatric: Denies depression or anxiety Heart Score: Risk Factors: Risk Factors: DM, Current or recent (<one month) smoker, HTN, HLP, family history of CAD, obesity. Risk Scores: Score 0 - 3: 2.5% MACE over next 6 weeks - Discharge Home Score 4 - 6: 20.3% MACE over next 6 weeks - Admit for Clinical Observation Score 7 - 10: 72.7% MACE over next 6 weeks - Early Invasive Strategies Allergies: Allergies: Allergies Coded Allergies Type Severity Reaction Last Updated Verified Penicillins Allergy Intermediate Swelling 01/12/19 No ketorolac Allergy Intermediate 01/12/19 Yes tramadol Allergy Unknown 06/16/19 Yes Physical Exam: PE: Constitutional: Well developed, well nourished, obese, no acute distress, non- toxic appearance. [] HENT: Normocephalic, atraumatic, bilateral external ears normal, oropharynx moist, no oral exudates, nose normal. [] Eyes: PERRLA, EOMI, conjunctiva normal, no discharge. [] Neck: Normal range of motion, no tenderness, supple, no stridor. [] Cardiovascular: Heart rate regular rhythm, no murmur [] Lungs & Thorax: Bilateral breath sounds clear to auscultation [] Abdomen: Bowel sounds normal, soft, epigastric tenderness, no masses, no pulsatile masses. [] Skin: Warm, dry, no erythema, no rash. [] Back: No tenderness, no CVA tenderness. [] Extremities: No tenderness, no cyanosis, no clubbing, ROM intact, no edema. [] Neurologic: Alert and oriented X 3, normal motor function, normal sensory function, no focal deficits noted. [] Psychologic: Affect normal, judgement normal, mood anxious. [] EKG: EKG: [] Radiology/Procedures: Radiology/Procedures: [] Impressions: EXAMINATION: KUB CLINICAL HISTORY: Constipation TECHNIQUE: KUB COMPARISON: None FINDINGS: Nonobstructive bowel gas pattern with no significant colonic stool retention visualized. Right upper quadrant surgical clips. No acute osseous abnormality. IMPRESSION: Nonobstructive bowel gas pattern with no radiographic evidence of constipation. Electronically signed by: Ke Adams DO (08/30/2020 3:02 PM) [id number] DICTATED AND SIGNED BY: KE ADAMS DO DATE: 08/30/20 1501 CC: CHELY HUITRON MD; SVITLANA LOFTON DO ~ Course & Med Decision Making: Course & Med Decision Making Pertinent Labs and Imaging studies reviewed. (See chart for details) The patient's labs are unremarkable. Urinalysis is negative for infection. The patient's KUB does not show any significant constipation. Her blood pressure has been normal for us here. I think this is just vomiting related to her gastroparesis. No signs of obstruction. I will discharge her with prescription for Zofran. She is stable for discharge at this time. [] Dragon Disclaimer: Dragon Disclaimer: This electronic medical record was generated, in whole or in part, using a voice recognition dictation system. Departure Departure: Impression: Primary Impression: Abdominal pain Qualified Codes: R10.13 - Epigastric pain Disposition: 01 DC HOME SELF CARE/HOMELESS Condition: STABLE Referrals: CHELY HUITRON MD (PCP) Patient Instructions: Abdominal Pain, Haqo-or-[place] Scripts Ondansetron (ONDANSETRON ODT) 4 Mg Tab.rapdis 1 TAB PO PRN Q6-8HRS PRN for VOMITING, #16 TAB Prov: SVITLANA LOFTON DO 08/30/20 SVITLANA LOFTON DO Aug 30, 2020 12:50
[2020-08-30 13:09] LABS: BASO % 1 % (0-3); EOS # 0.2 x10^3/uL (0.0-0.7); EOS % 2 % (0-3); HEMATOCRIT 37.1 % (36.0-47.0); HEMOGLOBIN 12.2 g/dL (12.0-15.5); LYMPH # 3.5 x10^3/uL (1.0-4.8); LYMPH % 38 % (24-48); MEAN CORPUSCULAR HEMOGLOBIN 28 pg (25-35); MEAN CORPUSCULAR HGB CONC 33 g/dL (31-37); MEAN CORPUSCULAR VOLUME 84 fL (79-100); MONO # 0.5 x10^3/uL (0.0-1.1); MONO % 5 % (0-9); NEUT # 4.9 x10^3uL (1.8-7.7); NEUT % 54 % (31-73); PLATELET COUNT 328 x10^3/uL (140-400); RED BLOOD COUNT 4.43 x10^6/uL (3.50-5.40); RED CELL DISTRIBUTION WIDTH 13.5 % (11.5-14.5); WHITE BLOOD COUNT 9.1 x10^3/uL (4.0-11.0)
[2020-08-30 13:17] LABS: CALCIUM 9.2 mg/dL (8.5-10.1); CREATININE 0.7 mg/dL (0.6-1.0); GFR 88.9; POTASSIUM 3.8 mmol/L (3.5-5.1)
[2020-08-30 13:18] LABS: BARBITURATES NEG (NEG); BENZODIAZEPINES POS (NEG); CANNABINOIDS NEG (NEG); COCAINE NEG (NEG); METHADONE NEG (NEG); OPIATES NEG (NEG); PHENCYCLIDINE NEG (NEG)
[2020-08-30 13:20] LABS: AMPHETAMINE/METHAMPHETAMINE NEG (NEG)
[2020-08-30 13:31] LABS: ALBUMIN 3.7 g/dL (3.4-5.0); ALBUMIN/GLOBULIN RATIO 1.1 (1.0-1.7); TOTAL BILIRUBIN 0.4 mg/dL (0.2-1.0)
[2020-08-30 13:47] LABS: BACTERIA,URINE FEW /HPF (0-FEW); BILIRUBIN,URINE NEG (NEG); CLARITY,URINE CLEAR; COLOR,URINE YELLOW; GLUCOSE,URINE NEG (NEG); NITRITE,URINE NEG (NEG); RBC,URINE 0 /HPF (0-2); SQUAMOUS EPITHELIAL CELL,UR MANY /LPF; UROBILINOGEN,URINE 0.2 mg/dL (0.2 mg/dL); WBC,URINE 0 /HPF (0-4)
--- NOTE | 2020-08-30 15:06 | RAD ---
EXAMINATION: KUB CLINICAL HISTORY: Constipation TECHNIQUE: KUB COMPARISON: None FINDINGS: Nonobstructive bowel gas pattern with no significant colonic stool retention visualized. Right upper quadrant surgical clips. No acute osseous abnormality. IMPRESSION: Nonobstructive bowel gas pattern with no radiographic evidence of constipation. Electronically signed by: Ke De Leon DO (08/30/2020 3:02 PM) [id number]
[2020-08-30] MEDS ORDERED: ONDA4TAB12 PO (15:35)
[2020-08-30] MEDS ORDERED: HYDROcodone/APAP 5/325MG 1 TAB TABLET PO ONE (15:45)
== END 2020-08-30 15:42 | disposition home or self-care (01) ==
LOC: ER 11:58
DX: R10.33 Periumbilical pain (principal); R11.2 Nausea with vomiting, unspecified; E11.9 Type 2 diabetes mellitus without complications; I10 Essential (primary) hypertension; E03.9 Hypothyroidism, unspecified; Z90.49 Acquired absence of other specified parts of digestive tract; Z90.710 Acquired absence of both cervix and uterus; Z88.0 Allergy status to penicillin; Z88.8 Allergy status to other drugs, medicaments and biological substances
CPT/HCPCS: 36415; 74018; 80053; 80307; 81001; 85025; 99284

== ENCOUNTER → 2021-04-18 | Outpatient (CLI) | payer MEDICARE ==
[~2021-04-18] MED LIST changes: +AMLO-186 PO; +DIPH25CA58 PO; +ONDA4TAB12 PO
== END ==
LOC: LAB 08:06
PROVIDERS: ATTEND Nurse Anesthetist, Certified Registered
DX: Z01.812 Encounter for preprocedural laboratory examination (principal); Z86.010 Personal history of colon polyps; Z20.822 Contact with and (suspected) exposure to COVID-19
CPT/HCPCS: U0003

== ENCOUNTER → 2021-04-22 | Day surgery (SDC) | payer MEDICARE ==
[~2021-04-22] MED LIST changes: +IPRATRPIUM/ALBUTEROL 0.5/2.5MG 3 ML NEBU. NEB PRN; +IV RINGERS SOLUTION,LACTATED 1,000 ML IV SCH; +LIDOCAINE 2% PF 5 ML VIAL. ONE; +MIDAZOLAM HCL PF 2 MG/2 ML VIAL. IV ONE; +ONDANSETRON PF 4 MG/2 ML VIAL. IV PRN; +PROPOFOL 10,000 MCG/ML (20ML) VIAL IV ONE
[2021-04-22 11:29] VITALS: BP 122/84
== END | disposition home or self-care (01) ==
LOC: SURG 09:30
PROVIDERS: ATTEND Internal Medicine Gastroenterology
DX: Z12.11 Encounter for screening for malignant neoplasm of colon (principal); K64.8 Other hemorrhoids; F41.9 Anxiety disorder, unspecified; I10 Essential (primary) hypertension; E11.9 Type 2 diabetes mellitus without complications; E78.00 Pure hypercholesterolemia, unspecified; K21.9 Gastro-esophageal reflux disease without esophagitis; E66.9 Obesity, unspecified; E03.9 Hypothyroidism, unspecified; F31.9 Bipolar disorder, unspecified; Z98.890 Other specified postprocedural states; Z80.0 Family history of malignant neoplasm of digestive organs; Z79.899 Other long term (current) drug therapy; Z79.84 Long term (current) use of oral hypoglycemic drugs; Z88.0 Allergy status to penicillin; Z88.8 Allergy status to other drugs, medicaments and biological substances; Z87.01 Personal history of pneumonia (recurrent); Z98.51 Tubal ligation status; Z90.710 Acquired absence of both cervix and uterus; Z85.828 Personal history of other malignant neoplasm of skin; Z80.41 Family history of malignant neoplasm of ovary; Z82.49 Family history of ischemic heart disease and other diseases of the circulatory system
CPT/HCPCS: 82947; G0105; J2001; J2704; J7120; 45378

== ENCOUNTER 2021-05-30 14:43 | Emergency (ER) | payer MEDICARE ==
[~2021-05-30] VITALS: Ht 157.5 cm; Wt 70.6 kg
[~2021-05-30 14:43] MED LIST changes: -IPRATRPIUM/ALBUTEROL 0.5/2.5MG 3 ML NEBU. NEB PRN; -IV RINGERS SOLUTION,LACTATED 1,000 ML IV SCH; -LIDOCAINE 2% PF 5 ML VIAL. ONE; -MIDAZOLAM HCL PF 2 MG/2 ML VIAL. IV ONE; -ONDANSETRON PF 4 MG/2 ML VIAL. IV PRN; -PROPOFOL 10,000 MCG/ML (20ML) VIAL IV ONE
--- NOTE | 2021-05-30 16:10 | RAD ---
Examination: Bilateral venous Doppler Indication: Bilateral Leg swelling Technique: Ultrasound evaluation of the bilateral lower extremities was performed from the groin to t he upper calf with joshi scale, spectral and color doppler evaluation. Comparison: None Findings: There is normal venous flow and compressibility of bilateral common femoral veins, femoral veins, popliteal veins, and visualized proximal calf veins. Impression: No evidence for deep vein thrombosis of bilateral lower extremities from the level of the calf veins to the groins. Electronically signed by: Reid Bills MD (05/30/2021 4:07 PM) [email or web address]
[2021-05-30 16:34] LABS: BASO # 0.1 x10^3/uL (0.0-0.2); BASO % 1 % (0-3); EOS # 0.2 x10^3/uL (0.0-0.7); EOS % 2 % (0-3); HEMATOCRIT 35.9 % (36.0-47.0); HEMOGLOBIN 11.9 g/dL (12.0-15.5); LYMPH # 3.4 x10^3/uL (1.0-4.8); LYMPH % 34 % (24-48); MEAN CORPUSCULAR HEMOGLOBIN 28 pg (25-35); MEAN CORPUSCULAR HGB CONC 33 g/dL (31-37); MEAN CORPUSCULAR VOLUME 83 fL (79-100); MONO # 0.5 x10^3/uL (0.0-1.1); MONO % 5 % (0-9); NEUT % 59 % (31-73); PLATELET COUNT 328 x10^3/uL (140-400); RED BLOOD COUNT 4.33 x10^6/uL (3.50-5.40); RED CELL DISTRIBUTION WIDTH 14.5 % (11.5-14.5); WHITE BLOOD COUNT 10.2 x10^3/uL (4.0-11.0)
[2021-05-30 16:40] LABS: CALCIUM 8.4 mg/dL (8.5-10.1); CREATININE 0.7 mg/dL (0.6-1.0); GFR 88.6; POTASSIUM 3.6 mmol/L (3.5-5.1); PREG TEST PT QUAL NEGATIVE (NEG)
[2021-05-30 16:46] LABS: ALBUMIN 3.9 g/dL (3.4-5.0); ALBUMIN/GLOBULIN RATIO 1.3 (1.0-1.7); TOTAL BILIRUBIN 0.2 mg/dL (0.2-1.0); TOTAL PROTEIN 6.9 g/dL (6.4-8.2)
--- NOTE | 2021-05-30 16:54 | PHYS DOC ---
Past History Past Medical History: Anxiety, Depression, Diabetes, Hypertension, Hypothyroid, Other Additional Past Medical Histor: gastroparesis Past Surgical History: Hysterectomy, Tonsillectomy Additional Past Surgical Histo: right eye, prosthetic Smoking: Non-smoker Alcohol Use: None Drug Use: None General Adult EDM: Chief Complaint: LOWER EXTREMITY EDEMA HPI: HPI: 51-year-old female past medical history of diabetes, hypothyroidism, GERD/gastroparesis, hypertension and hyperlipidemia, presents the ED with complaints of tingling and "cramping" to both lower extremities with brief skin color changes that have resolved, reports she drove all night from [facility], arrived here around 10:00 this morning. C/o bilateral ankle swelling, right lower rib discomfort with painful inspiration, but no dyspnea or hemoptysis. States " I do not drink water, only Gatorade" because water exacerbates her gastroparesis/nausea and vomiting. Is not on any anticoagulants. No associated chest pressure. No h/o dvt, no recent surgery or operation, is not on any estrogen products. No associated anorexia, lack of taste or smell-no known history of Covid. States she called her pcp her referred her to the ed for an "ultrasound." Review of Systems: Review of Systems: Constitutional: Denies fever or chills Eyes: Denies change in visual acuity HENT: Denies nasal congestion or sore throat Respiratory: Denies cough or hemoptysis Cardiovascular: Denies chest pain or edema GI: Denies abdominal pain, nausea, vomiting, : Denies dysuria or vaginal bleeding Musculoskeletal: Denies back pain or joint deformity Integument: Denies rash or diaphoresis Neurologic: Denies headache, neck pain Psychiatric: Denies depression or anxiety Allergies: Allergies: Allergies Coded Allergies Type Severity Reaction Last Updated Verified Penicillins Allergy Intermediate Swelling 05/30/21 No ketorolac Allergy Intermediate tachycardia, anxiety 05/30/21 Yes tramadol Allergy Intermediate tachycardia, anxiety 05/30/21 Yes Physical Exam: PE: Constitutional: Well developed, well nourished, no acute distress, non-toxic appearance. HENT: Normocephalic, atraumatic, Eyes: EOMI, conjunctiva normal, no discharge. Neck: Normal range of motion, supple, Cardiovascular: S1/2 present, regular rhythm Lungs & Thorax: Speaking in full sentences, bilateral equal chest rise, no tachypnea or increased work of breathing Abdomen: soft, no tenderness, Skin: Warm, dry, no erythema, no rash. [] Extremities: No tenderness, no cyanosis, no unilateral lower extremity edema, no pedal edema Neurologic: Alert and oriented X 3, normal motor function, normal sensory function, no focal deficits noted. [] Psychologic: Affect normal, judgement normal, mood normal. [] Current Patient Data: Labs: Laboratory Tests Test 05/30/21 16:11 White Blood Count 10.2 x10^3/uL (4.0-11.0) Red Blood Count 4.33 x10^6/uL (3.50-5.40) Hemoglobin 11.9 g/dL (12.0-15.5) L Hematocrit 35.9 % (36.0-47.0) L Mean Corpuscular Volume 83 fL (79-100) Mean Corpuscular Hemoglobin 28 pg (25-35) Mean Corpuscular Hemoglobin Concent 33 g/dL (31-37) Red Cell Distribution Width 14.5 % (11.5-14.5) Platelet Count 328 x10^3/uL (140-400) Neutrophils (%) (Auto) 59 % (31-73) Lymphocytes (%) (Auto) 34 % (24-48) Monocytes (%) (Auto) 5 % (0-9) Eosinophils (%) (Auto) 2 % (0-3) Basophils (%) (Auto) 1 % (0-3) Neutrophils # (Auto) 6.0 x10^3uL (1.8-7.7) Lymphocytes # (Auto) 3.4 x10^3/uL (1.0-4.8) Monocytes # (Auto) 0.5 x10^3/uL (0.0-1.1) Eosinophils # (Auto) 0.2 x10^3/uL (0.0-0.7) Basophils # (Auto) 0.1 x10^3/uL (0.0-0.2) D-Dimer (Mackenzie) 0.44 mg/L (0.00-0.50) Sodium Level 143 mmol/L (136-145) Potassium Level 3.6 mmol/L (3.5-5.1) Chloride Level 107 mmol/L (98-107) Carbon Dioxide Level 26 mmol/L (21-32) Anion Gap 10 (6-14) Blood Urea Nitrogen 9 mg/dL (7-20) Creatinine 0.7 mg/dL (0.6-1.0) Estimated GFR (Cockcroft-Gault) 88.6 BUN/Creatinine Ratio 13 (6-20) Glucose Level 88 mg/dL (70-99) Calcium Level 8.4 mg/dL (8.5-10.1) L Total Bilirubin 0.2 mg/dL (0.2-1.0) Aspartate Amino Transferase (AST) 16 U/L (15-37) Alanine Aminotransferase (ALT) 33 U/L (14-59) Alkaline Phosphatase 53 U/L (46-116) Total Protein 6.9 g/dL (6.4-8.2) Albumin 3.9 g/dL (3.4-5.0) Albumin/Globulin Ratio 1.3 (1.0-1.7) Serum Test, Qualitative Negative (NEG) Vital Signs: Vital Signs Date Time Temp Pulse Resp B/P (MAP) Pulse Ox O2 Delivery O2 Flow Rate FiO2 05/30/21 14:43 98.8 84 18 154/85 99 Room Air EKG: EKG: [] Radiology/Procedures: Radiology/Procedures: []IMAGING REPORT Signed PATIENT: JEFF ALEX ACCOUNT: [id number] : 1970 LOCATION: ER AGE: 51 SEX: F EXAM STATUS: REG ER ORD. PHYSICIAN: TRAVIS POWERS DO REASON: lower extremity swelling, r/o dvt PROCEDURE: VENOUS LOWER EXT BILATERAL Examination: Bilateral venous Doppler Indication: Bilateral Leg swelling Technique: Ultrasound evaluation of the bilateral lower extremities was performed from the groin to the upper calf with joshi scale, spectral and color doppler evaluation. Comparison: None Findings: There is normal venous flow and compressibility of bilateral common femoral veins, femoral veins, popliteal veins, and visualized proximal calf veins. Impression: No evidence for deep vein thrombosis of bilateral lower extremities from the level of the calf veins to the groins. Electronically signed by: Reid Gaspar MD (05/30/2021 4:07 PM) [facility] DICTATED AND SIGNED BY: REID GASPAR MD DATE: 05/30/21 1606 CC: HCELY HUITRON MD; [facility] ~[facility] 0 Heart Score: C/O Chest Pain: No Risk Factors: Risk Factors: DM, Current or recent (<one month) smoker, HTN, HLP, family history of CAD, obesity. Risk Scores: Score 0 - 3: 2.5% MACE over next 6 weeks - Discharge Home Score 4 - 6: 20.3% MACE over next 6 weeks - Admit for Clinical Observation Score 7 - 10: 72.7% MACE over next 6 weeks - Early Invasive Strategies Course & Med Decision Making: Course & Med Decision Making Pertinent Labs and Imaging studies reviewed. (See chart for details) Concern for lower extremity calf pain in the setting of recent prolonged travel, venous ultrasound not consistent with any DVT. Does report pleuritic-type chest pain, D-dimer within normal limits, no uri sxs. Patient with no tachycardia, 99-100% on room air not requiring any supplemental oxygen. Patient with no tachypnea or increased work of breathing. Low suspicion for pulmonary embolus. Patient was educated that DVT studies could be incorrect and may need to repeat ultrasound in 1 week. She also was made aware that pulmonary embolus is not excluded. Labs wnl- no electrolyte abnormalities. Muscle relaxer for leg cramping and recommended oral hydration. Will discharge home with strict ED return precautions were given for mopped assist, increased work of breathing, tachypnea, syncope or neurologic deficits. Encouraged urgent outpatient follow- up with PMD. Life-threatening processes were considered but are low suspicion at this time, given history, physical exam and ED workup. Pt was educated on all prescription medications and adverse effects. All patient's questions were answered and pt was stable at time of discharge. Life/limb-threatening differential includes but is not limited to, trauma (fracture, dislocation, laceration, compartment syndrome, tendon or ligament injury), neurovascular injury or deficitcva/tia, infection (osteomyelitis, abscess, cellulitis, septic arthritis, necrotizing fasciitis), deep vein thrombosis, renal/cardiac/liver disease, medication adverse effect, lymphedema/anasarca, vascular insufficiency or malignancy, I have spoken with the patient and/or caregivers. I explained the patient's condition, diagnoses and treatment plan based on the information available to me at this time. I have answered the patient and/or caregiver's questions and addressed any concerns. The patient and/or caregivers have a good understanding of patient's diagnosis, condition and treatment plan as can be expected at this point. Vital signs have been stable. Patient's condition is stable and appropriate for discharge from the emergency department. Patient will pursue further outpatient evaluation with primary care physician or other designated or consulting physician as outlined in the discharge instructions. The patient and/or caregivers are agreeable to this plan of care and follow-up instructions have been explained in detail. The patient and/or caregivers have received these instructions in written form and have expressed an understanding of the discharge instructions. The patient and/or caregivers are aware that any significant change of condition or worsening of symptoms should prompt immediate return to this or the closest emergency department or call to 911Bryce Mullins Disclaimer: Harpreet Disclaimer: This electronic medical record was generated, in whole or in part, using a voice recognition dictation system. Departure Departure: Impression: Primary Impression: Cramps of lower extremity Disposition: HOME / SELF CARE / HOMELESS Condition: STABLE Referrals: CHELY HUITRON MD (PCP) in 1-2 days, may repeat extremity ultrasound in 1 week if symptoms persist Patient Instructions: Leg Cramps, Peripheral Edema Additional Instructions: EMERGENCY DEPARTMENT GENERAL DISCHARGE INSTRUCTIONS Thank you for coming to [facility] (ED) today and trusting us with you care. We trust that you had a positivie experience in our Emergency Department. If you wish to speak to the department management, you may call the director at [phone]. YOUR FOLLOW UP INSTRUCTIONS ARE FOLLOWS: 1. Do you have a private Doctor? If you do not have a private doctor, please ask for a resource list of physicians or clinics that may be able to assist you with follow up care. 2. The Emergency Physician has interpreted your x-rays. The X-Ray specialist will also review them. If there is a change in the findings, you will be notified in 48 hours when at all possible. 3. A lab test or culture has been done, your results will be reviewed and you will be notified if you need a change in treatment. ADDITIONAL INSTRUCTIONS AND INFORMATION: 1. Your care today has been supervised by a physician who is specially trained in emergency care. Many problems require more than one evaluation for a complete diagnosis and treatment. We recommend that you schedule your follow up appointment as recommended to ensure complete treatment of you illness or injury. If you are unable to obtain follow up care and continue to have a problem, or if your condition worsens, we recommend that you return to the ED. 2. We are not able to safely determine your condition over the phone nor are we able to give sound medical advice over the phone. For these safety reasons, if you call for medical advice we will ask you to come to the ED for further evaluation. 3. If you have any questions regarding these discharge instructions please call the ED at [phone]. SAFETY INFORMATION: In the interest of safety, wellness, and injury prevention; we encourage you to wear your sealbelt, if you smoke; quite smoking, and we encourage family to use a protective helmet for bicycling and other sporting events that present an increased risk for head injury. IF YOUR SYMPTOMS WORSEN OR NEW SYMPTOMS DEVELOP, OR YOU HAVE CONCERNS ABOUT YOUR CONDITION; OR IF YOUR CONDITION WORSENS WHILE YOU ARE WAITING FOR YOUR FOLLOW UP APPOINTMENT; EITHER CONTACT YOUR PRIMARY CARE DOCTOR, THE PHYSICIAN WHOSE NAME AND NUMBER YOU WERE GIVEN, OR RETURN TO THE ED IMMEDIATELY. Scripts Methocarbamol (METHOCARBAMOL) 750 Mg Tablet 750 MG PO TID PRN PRN for PAIN, #20 TAB Prov: TRAVIS POWERS DO 05/30/21 TRAVIS POWERS DO May 30, 2021 16:53
[2021-05-30 17:37] VITALS: BP 134/82
[2021-05-30] MEDS ORDERED: METH-560 PO (17:44)
== END 2021-05-30 17:35 | disposition home or self-care (01) ==
LOC: ER 14:43
DX: R25.2 Cramp and spasm (principal); R22.43 Localized swelling, mass and lump, lower limb, bilateral; R07.81 Pleurodynia; F41.9 Anxiety disorder, unspecified; F32.9 Major depressive disorder, single episode, unspecified; E11.9 Type 2 diabetes mellitus without complications; I10 Essential (primary) hypertension; E03.9 Hypothyroidism, unspecified; Z88.0 Allergy status to penicillin; Z88.8 Allergy status to other drugs, medicaments and biological substances
CPT/HCPCS: 36415; 80053; 84703; 85025; 85379; 93970; 99284

== ENCOUNTER 2021-10-23 15:36 | Emergency (ER) | payer MEDICARE ==
[~2021-10-23] VITALS: Ht 157.5 cm; Wt 74.6 kg
[~2021-10-23 15:36] MED LIST changes: +METH-560 PO; +MORP-62 PO; -MORP15TA PO; -PHEN16.277 PO; +[UNRECOGNIZED DRUG - CODE] PO
[2021-10-23 15:45] VITALS: BP 152/97
[2021-10-23] MEDS ORDERED: ONDANSETRON PF 4 MG/2 ML VIAL. IVP ONE ×2 (16:00→18:15)
[2021-10-23] MEDS ORDERED: FAMOTIDINE 20 MG/2 ML VIAL IVP ONE (16:00)
[2021-10-23] MEDS ORDERED: IV NORMAL SALINE 1,000ML 1,000 ML IV ONE (16:00)
[2021-10-23] MEDS ORDERED: diphenhydrAMINE 50 MG/ML VIAL IVP ONE (16:00)
--- NOTE | 2021-10-23 16:25 | PHYS DOC ---
Past History Past Medical History: Anxiety, Depression, Diabetes, Hypertension, Hypothyroid, Other Additional Past Medical Histor: gastroparesis Past Surgical History: Hysterectomy, Tonsillectomy Additional Past Surgical Histo: right eye, prosthetic Smoking: Non-smoker Alcohol Use: None Drug Use: None General Adult EDM: Chief Complaint: HEAD INJURY/TRAUMA HPI: HPI: 51 year old female with history of gastroparesis presents to the ED with nausea/vomiting. Pt has chronic gastroparesis that has been fully worked up by GI physician. Pt started having nausea/vomiting yesterday, today the vomiting became more frequent. Unable to keep any liquids or solids down. Pt states she went to take a shower to alleviate her nausea when she felt lightheaded, fell forward and hit her head on the toilet. Pt cannot recall whether she lost consciousness or not, however her reports he found her down on the floor next to the toilet. Pt reports headache, abdominal tenderness. Denies constipation, diarrhea. Pt is holding emesis bag resting in ER bed in no acute distress, speaking in full sentences. Review of Systems: Review of Systems: Constitutional: Denies fever or chills Eyes: Denies change in visual acuity, redness, or eye pain HENT: Denies nasal congestion or sore throat Respiratory: Denies cough or shortness of breath Cardiovascular: Reports chest pain. GI: Reports abdominal pain, nausea, vomiting. : Denies dysuria or hematuria Musculoskeletal: Denies back pain or joint pain Integument: Denies rash or skin lesions Neurologic: Reports headache. Denies focal weakness or sensory changes Current Medications: Current Meds: Current Medications Medications (Trade) Dose Ordered Sig/Shanita Start Time Stop Time Status Last Admin Dose Admin Diphenhydramine HCl (Benadryl) 25 mg 1X ONCE 10/23/21 16:00 10/23/21 16:02 DC Famotidine (Pepcid Vial) 20 mg 1X ONCE 10/23/21 16:00 10/23/21 16:02 DC Ondansetron HCl (Zofran) 4 mg 1X ONCE 10/23/21 16:00 10/23/21 16:02 DC Sodium Chloride 1,000 ml @ 1,000 mls/hr 1X ONCE 10/23/21 16:00 10/23/21 16:59 Allergies: Allergies: Allergies Coded Allergies Type Severity Reaction Last Updated Verified Penicillins Allergy Intermediate Swelling 7/9/21 No ketorolac Allergy Intermediate tachycardia, anxiety 05/30/21 Yes tramadol Allergy Intermediate tachycardia, anxiety 05/30/21 Yes Physical Exam: PE: Constitutional: Well developed, well nourished, no acute distress, non-toxic appearance HENT: Closed deformity above left eyebrow, atraumatic Eyes: Conjunctiva normal, no discharge Neck: Normal range of motion, no tenderness, supple, no meningeal signs Lungs & Thorax: Equal chest rise and fall, no respiratory distress Cardiovascular: Heart rate normal and regular rhythm Abdomen: Soft, tender to palpation. Hyperactive bowel sounds. Skin: Warm, dry, no erythema, no rash Back: No tenderness, no CVA tenderness Extremities: No tenderness, ROM intact, no edema Neurologic: Alert and oriented X 3, no focal deficits noted Psychologic: Tearful, judgement normal EKG: EKG: EKG @ 1644. Sinus rhythm at rate 73 bpm. VA 172ms. QRS 86ms. QT 384 ms. QTc 427ms. RR 818ms. Radiology/Procedures: Radiology/Procedures: [] Impressions: CT HEAD: There is no evidence for intracranial mass or hemorrhage. There is no hydrocephalus or midline shift. No abnormal extra-axial fluid collections are present. No evidence of acute territorial infarction. Small right globe with internal calcification, unchanged. The visualized paranasal sinuses and mastoid air cells are clear. The skull and scalp are within normal limits. CT CERVICAL SPINE: There is no evidence for fracture in the cervical spine. Alignment is normal. Disc spaces are preserved. No destructive osseous lesions are seen. Limited evaluation of the soft tissues of the neck and of the upper chest is unremarkable. Impression: 1. No acute intracranial findings. 2. No acute osseous abnormality in the cervical spine. Electronically signed by: Dannie Benito MD (10/23/2021 4:38 PM) [facility] Heart Score: C/O Chest Pain: Yes HEART Score for Chest Pain: HEART Score for Chest Pain Response (Comments) Value Age >45 - < 65 1 Total 1 Risk Factors: Risk Factors: DM, Current or recent (<one month) smoker, HTN, HLP, family history of CAD, obesity. Risk Scores: Score 0 - 3: 2.5% MACE over next 6 weeks - Discharge Home Score 4 - 6: 20.3% MACE over next 6 weeks - Admit for Clinical Observation Score 7 - 10: 72.7% MACE over next 6 weeks - Early Invasive Strategies Course & Med Decision Making: Course & Med Decision Making 51 year old female with history of gastroparesis presents to the ED with naus ea/vomiting. Medication given to manage nausea/vomiting. Due to mechanism of injury, CT scans ordered to evaluation of head/neck injury. Results negative. Patient stable for discharge home with outpatient follow-up with PCP. Discussed findings and plan with patient, who acknowledges understanding and agreement. Harpreet Disclaimer: Harpreet Disclaimer: This electronic medical record was generated, in whole or in part, using a voice recognition dictation system. Departure Departure: Impression: Primary Impression: Head contusion Qualified Codes: S00.03XA - Contusion of scalp, initial encounter Additional Impression: Intractable nausea and vomiting Disposition: HOME / SELF CARE / HOMELESS Condition: STABLE Referrals: CHELY HUITRON MD (PCP) Patient Instructions: Clear Liquid Diet, [id number], Facial or Scalp Contusion, [id number], Gastroparesis, Nausea and Vomiting, [id number] Additional Instructions: Please follow with your GI doctor for further evaluation and treatment. Scripts Promethazine Hcl (PROMETHAZINE HCL) 25 Mg Supp.rect 25 MG RC Q6HRS PRN for NAUSEA, #14 SUPP.RECT Prov: MISHA TRUJILLO DO 10/23/21 MISHA TRUJILLO DO Oct 23, 2021 16:25
--- NOTE | 2021-10-23 16:40 | RAD ---
CT HEAD AND C-SPINE WO History: Syncope. Fell and hit head on toilet. Dizzy. Comparison: CT head 07/23/17 Technique: Noncontrast CT of the head and cervical spine. Findings: CT HEAD: There is no evidence for intracranial mass or hemorrhage. There is no hydrocephalus or midline shift. No abnormal extra-axial fluid collections are present. No evidence of acute territorial infarction. Small right globe with internal calcification, unchanged. The visualized paranasal sinuses and mastoid air cells are clear. The skull and scalp are within normal limits. CT CERVICAL SPINE: There is no evidence for fracture in the cervical spine. Alignment is normal. Disc spaces are preserved. No destructive osseous lesions are seen. Limited evaluation of the soft tissues of the neck and of the upper chest is unremarkable. Impression: 1. No acute intracranial findings. 2. No acute osseous abnormality in the cervical spine. ------- Exposure: One or more of the following individualized dose reduction techniques were utilized for thi s examination: 1. Automated exposure control 2. Adjustment of the mA and/or kV according to patient size 3. Use of iterative reconstruction technique. Electronically signed by: Dannie Benito MD (10/23/2021 4:38 PM) [facility]
[2021-10-23 17:16] LABS: ANION GAP 12 (6-14); BLOOD UREA NITROGEN 13 mg/dL (7-20); BUN/CREATININE RATIO 14 (6-20); CALCIUM 9.3 mg/dL (8.5-10.1); CARBON DIOXIDE 26 mmol/L (21-32); CHLORIDE 103 mmol/L (98-107); CREATININE 0.9 mg/dL (0.6-1.0); GFR 66.3; GLUCOSE 92 mg/dL (70-99); POTASSIUM 4.4 mmol/L (3.5-5.1); SODIUM 141 mmol/L (136-145)
[2021-10-23 17:20] LABS: BASO # 0.1 x10^3/uL (0.0-0.2); BASO % 1 % (0-3); EOS # 0.3 x10^3/uL (0.0-0.7); EOS % 3 % (0-3); HEMATOCRIT 38.8 % (36.0-47.0); HEMOGLOBIN 12.7 g/dL (12.0-15.5); LYMPH # 3.7 x10^3/uL (1.0-4.8); LYMPH % 34 % (24-48); MEAN CORPUSCULAR HEMOGLOBIN 27 pg (25-35); MEAN CORPUSCULAR HGB CONC 33 g/dL (31-37); MEAN CORPUSCULAR VOLUME 81 fL (79-100); MONO # 0.5 x10^3/uL (0.0-1.1); MONO % 5 % (0-9); NEUT # 6.2 x10^3uL (1.8-7.7); NEUT % 58 % (31-73); PLATELET COUNT 297 x10^3/uL (140-400); RED BLOOD COUNT 4.79 x10^6/uL (3.50-5.40); RED CELL DISTRIBUTION WIDTH 15.3 % (11.5-14.5); WHITE BLOOD COUNT 10.8 x10^3/uL (4.0-11.0)
[2021-10-23 17:28] LABS: ALBUMIN 4.2 g/dL (3.4-5.0); ALBUMIN/GLOBULIN RATIO 1.4 (1.0-1.7); ALK PHOS 51 U/L (46-116); ALT (SGPT) 63 U/L (14-59); AST (SGOT) 21 U/L (15-37); MAGNESIUM 1.7 mg/dL (1.8-2.4); TOTAL BILIRUBIN 0.3 mg/dL (0.2-1.0); TOTAL PROTEIN 7.3 g/dL (6.4-8.2)
[2021-10-23 18:25] LABS: BACTERIA,URINE MOD /HPF (0-FEW); BILIRUBIN,URINE NEG (NEG); CLARITY,URINE HAZY; COLOR,URINE YELLOW; GLUCOSE,URINE NEG (NEG); NITRITE,URINE NEG (NEG); SQUAMOUS EPITHELIAL CELL,UR MOD /LPF; UROBILINOGEN,URINE 0.2 mg/dL (0.2 mg/dL)
[2021-10-23] MEDS ORDERED: PROM25SU33 RC (18:25)
--- NOTE | 2021-10-24 07:10 | EKG ---
[address] [address] Test Date: 2021-10-23 Test Time: 16:44:04 Pat Name: JEFF ALEX Department: Room: Gender: F Rail Manager: VELVET : 1970 Requested By: MISHA TRUJILLO Order Number: [id number] Reading MD: Kj Wall MD Measurements Intervals [place] Rate: 73 P: 29 [place]: 172 QRS: 14 QRSD: 86 T: 13 QT: 384 QTc: 427 Interpretive Statements SINUS RHYTHM Electronically Signed On 10-26-2021 20:56:32 OB GYN PHYSICIAN ASSISTANT by Kj Wall MD
== END 2021-10-23 19:06 | disposition home or self-care (01) ==
LOC: ER 15:36
DX: S00.03XA Contusion of scalp, initial encounter (principal); R11.2 Nausea with vomiting, unspecified; E11.9 Type 2 diabetes mellitus without complications; I10 Essential (primary) hypertension; Z90.710 Acquired absence of both cervix and uterus; X58.XXXA Exposure to other specified factors, initial encounter; Y93.89 Activity, other specified; Y92.89 Other specified places as the place of occurrence of the external cause; Y99.8 Other external cause status
CPT/HCPCS: 36415; 70450; 72125; 80053; 81001; 82553; 83735; 84484; 85025; 87086; 93005; 96361; 96374; 96375; 96376; 99285; J1200; J2405; J3010; J3490; J7030

== ENCOUNTER 2022-03-08 13:35 | Emergency (ER) | payer MEDICARE ==
[~2022-03-08] VITALS: Ht 157.5 cm; Wt 73.0 kg
[~2022-03-08 13:35] MED LIST changes: +PROM25SU33 RC
[2022-03-08] MEDS ORDERED: METOCLOPRAMIDE HCL 10 MG/2 ML VIAL. IVP ONE (14:15)
[2022-03-08] MEDS ORDERED: IV NORMAL SALINE 1,000ML 1,000 ML IV ONE (14:15)
--- NOTE | 2022-03-08 14:19 | PHYS DOC ---
Past History Past Medical History: Anxiety, Depression, Diabetes, Hypertension, Hypothyroid, Other Additional Past Medical Histor: GASTRPPARESIS Past Surgical History: Cholecystectomy, Hysterectomy, Tonsillectomy, Other Additional Past Surgical Histo: RIGHT EYE Smoking: Non-smoker Alcohol Use: None Drug Use: None General Adult EDM: Chief Complaint: ABDOMINAL PAIN HPI: HPI: Patient is a 51-year-old female who presents to the emergency department for epigastric/right upper quadrant abdominal pain with nausea, vomiting started last night. Patient reports that she did have diarrhea but has now been constipated. She rates her pain 10 out of 10. No radiation of pain. She took Tylenol without relief in her symptoms. Patient has a history of gastroparesis, diabetes and cholecystectomy. Patient denies urinary symptoms, fevers, blood in her stools or vomit. Review of Systems: Review of Systems: Constitutional: See HPI GI: See HPI : See HPI Current Medications: Current Meds: Current Medications Medications (Trade) Dose Ordered Sig/Shanita Start Time Stop Time Status Last Admin Dose Admin Metoclopramide HCl (Reglan Vial) 10 mg 1X ONCE 03/08/22 14:15 03/08/22 14:16 UNV Sodium Chloride 1,000 ml @ 1,000 mls/hr 1X ONCE 03/08/22 14:15 03/08/22 15:14 UNV Allergies: Allergies: Allergies Coded Allergies Type Severity Reaction Last Updated Verified Penicillins Allergy Intermediate Swelling 05/30/21 No ketorolac Allergy Intermediate tachycardia, anxiety 05/30/21 Yes tramadol Allergy Intermediate tachycardia, anxiety 05/30/21 Yes Physical Exam: PE: Constitutional: Well developed, well nourished, no acute distress, non-toxic appearance. [] HENT: Normocephalic, atraumatic, bilateral external ears normal, oropharynx moist, no oral exudates, nose normal. [] Eyes: PERRL, EOMI, conjunctiva normal, no discharge. [] Neck: Normal range of motion, no tenderness, supple, no stridor. [] Cardiovascular:Heart rate regular rhythm, no murmur [] Lungs & Thorax: Bilateral breath sounds clear to auscultation [] Abdomen: Bowel sounds normal, soft, epigastric and right upper quadrant lower quadrant tenderness with palpation, no masses, no pulsatile masses. [] Skin: Warm, dry, no erythema, no rash. [] Back: No tenderness, no CVA tenderness. [] Extremities: No tenderness, no cyanosis, no clubbing, ROM intact, no edema. [] Neurologic: Alert and oriented X 3, normal motor function, normal sensory function, no focal deficits noted. [] Psychologic: Affect normal, judgement normal, mood normal. [] Current Patient Data: Labs: Laboratory Tests Test 03/08/22 14:00 03/08/22 14:30 White Blood Count 9.6 x10^3/uL Red Blood Count 4.94 x10^6/uL Hemoglobin 13.4 g/dL Hematocrit 40.5 % Mean Corpuscular Volume 82 fL Mean Corpuscular Hemoglobin 27 pg Mean Corpuscular Hemoglobin Concent 33 g/dL Red Cell Distribution Width 15.2 % Platelet Count 311 x10^3/uL Neutrophils (%) (Auto) 52 % Lymphocytes (%) (Auto) 40 % Monocytes (%) (Auto) 5 % Eosinophils (%) (Auto) 3 % Basophils (%) (Auto) 1 % Neutrophils # (Auto) 5.0 x10^3uL Lymphocytes # (Auto) 3.9 x10^3/uL Monocytes # (Auto) 0.4 x10^3/uL Eosinophils # (Auto) 0.2 x10^3/uL Basophils # (Auto) 0.1 x10^3/uL Sodium Level 144 mmol/L Potassium Level 4.0 mmol/L Chloride Level 104 mmol/L Carbon Dioxide Level 29 mmol/L Anion Gap 11 Blood Urea Nitrogen 7 mg/dL Creatinine 0.8 mg/dL Estimated GFR (Cockcroft-Gault) 75.9 BUN/Creatinine Ratio 9 Glucose Level 121 mg/dL Calcium Level 8.9 mg/dL Magnesium Level 1.4 mg/dL Total Bilirubin 0.3 mg/dL Aspartate Amino Transf (AST/SGOT) 27 U/L Alanine Aminotransferase (ALT/SGPT) 80 U/L Alkaline Phosphatase 51 U/L Total Protein 7.1 g/dL Albumin 3.8 g/dL Albumin/Globulin Ratio 1.2 Lipase 62 U/L Urine Collection Type Clean catch Urine Color Yellow Urine Clarity Clear Urine pH 5.5 Urine Specific [place] >=1.030 Urine Protein Neg Urine Glucose (UA) Neg mg/dL Urine Ketones (Stick) Neg mg/dL Urine Blood Small Urine Nitrite Neg Urine Bilirubin Neg Urine Urobilinogen Dipstick 0.2 mg/dL Urine Leukocyte Esterase Neg Urine RBC 1-2 /HPF Urine WBC 0 /HPF Urine Squamous Epithelial Cells Many /LPF Urine Bacteria 0 /HPF Current Medications Medications (Trade) Dose Ordered Sig/Shanita Route PRN Reason Start Time Stop Time Status Last Admin Dose Admin Sodium Chloride 1,000 ml @ 1,000 mls/hr 1X ONCE IV 03/08/22 14:15 03/08/22 15:14 DC 03/08/22 14:32 Metoclopramide HCl (Reglan Vial) 10 mg 1X ONCE IVP 03/08/22 14:15 03/08/22 14:19 DC 03/08/22 14:32 Morphine Sulfate (Morphine 2mg Syringe) 2 mg 1X ONCE IV 03/08/22 14:30 03/08/22 14:33 DC 03/08/22 14:44 Magnesium Oxide (Magnesium Oxide) 400 mg 1X ONCE PO 03/08/22 15:15 03/08/22 15:16 DC EKG: EKG: [] Radiology/Procedures: Radiology/Procedures: []STATUS: REG ERORD. PHYSICIAN: NELIDA GARCIA APRN REASON: constipation, gastroparesis hx, r/o obstruction PROCEDURE: CT ABDOMEN PELVIS WO CONTRAST PQRS Compliance Statement: One or more of the following individualized dose reduction techniques were utilized for this examination: 1. Automated exposure control 2. Adjustment of the mA and/or kV according to patient size 3. Use of iterative reconstruction technique Exam performed: CT scan of the abdomen and pelvis without contrast. Clinical Indication: Reason: constipation, gastroparesis hx, r/o obstruction / Spl. Instructions: / History: Date of Service: 03/08/2022 2:15 PM. Comparison: CT abdomen and pelvis from 03/07/2019 Technique: Contiguous helical acquisitions are obtained through the abdomen and pelvis without IV contrast. Sagittal and coronal reformatted images are obtained and reviewed. CT abdomen and pelvis findings: The lung bases are essentially clear. Visualized heart is normal. Lack of IV contrast limits evaluation of abdominal viscera, however the liver, spleen and pancreas are normal. Cholecystectomy. Both adrenal glands and bilateral kidneys are normal in size without hydronephrosis or nephrolithiasis. Aorta is normal in caliber without aneurysm. Small and large bowel loops are normal. The visualized portion of the appendix is unremarkable. Distal ureters are nondilated. Urinary bladder is partially decompressed. No intrapelvic masses are seen. There is a small 2.3 cm left ovarian cyst. No free or focal fluid collections are identified.Bones are normal.. Impression: No acute intra-abdominal or pelvic process detected. Electronically signed by: Piedad Reyes MD (03/08/2022 2:49 PM) [facility] DICTATED AND SIGNED BY: PIEDAD REYES MD DATE: 03/08/22 [id number] Heart Score: C/O Chest Pain: N/A Risk Factors: Risk Factors: DM, Current or recent (<one month) smoker, HTN, HLP, family history of CAD, obesity. Risk Scores: Score 0 - 3: 2.5% MACE over next 6 weeks - Discharge Home Score 4 - 6: 20.3% MACE over next 6 weeks - Admit for Clinical Observation Score 7 - 10: 72.7% MACE over next 6 weeks - Early Invasive Strategies Course & Med Decision Making: Course & Med Decision Making Pertinent Labs and Imaging studies reviewed. (See chart for details) [] Patient presents to the emergency department for epigastric/right upper qu adrant tenderness with nausea, vomiting and constipation. Patient has a history of gastroparesis. Work-up in the ER consisted of blood work including lipase, urinalysis and CT imaging of abdomen and pelvis rule out obstruction. Patient treated with IV fluids, Reglan and pain medication. CBC unremarkable. Magnesium was 1.4 and this was replaced in the ER. Patient reports that she is taking magnesium supplementation at home. Negative lipase. CT scan of abdomen did not show any acute findings. Following pain treatment in the emergency department she reports that it has improved. Patient will be discharged home with pain medication and nausea medication. She is advised that this may cause constipation caution use and add MiraLAX to her diet. I discuss ed with patient all findings and diagnostic testing as well as the need to follow-up with PCP for further evaluation and treatment or return to the ER if any new or worsening symptoms. Strict return precautions were also discussed at length. Patient voiced understanding and agreement with the plan. Patient is hemodynamically stable at the time of disposition. Dragon Disclaimer: Dragon Disclaimer: This electronic medical record was generated, in whole or in part, using a voice recognition dictation system. Departure Departure: Impression: Primary Impression: Abdominal pain Qualified Codes: R10.11 - Right upper quadrant pain Disposition: HOME / SELF CARE / HOMELESS Condition: GOOD Referrals: CHELY HUITRON MD (PCP) Patient Instructions: Abdominal Pain (Nonspecific) Additional Instructions: You are seen in the emergency department today for abdominal pain. Your magnesium was low so continue taking your supplementation at home. Blood work and urinalysis were unremarkable. CT scan of abdomen did not show any acute findings. You are being discharged home with pain medication. This medication is hydrocodone and Tylenol and a combination tablet. This medication may cause sedation so do not take when you need to be alert, driving a vehicle or with alcohol. This medication may also cause constipation so caution taking it you may benefit from taking MiraLAX every day. You are also being discharged home with nausea medication that you can take as needed. Follow-up with your primary care provider on Wednesday regarding your ER visit. Return to the emergency department if you develop worsening of your abdominal pain, intractable nausea or vomiting, high fevers refractory to treatment, blood in your stools or vomit. Scripts Ondansetron (ONDANSETRON ODT) 4 Mg Tab.rapdis 1 TAB PO PRN Q6-8HRS for nausea for 7 Days, #28 TAB 0 Refills Prov: NELIDA GARCIA APRN 03/08/22 Hydrocodone Bit/Acetaminophen (HYDROCODONE-APAP 5-325 ) 1 Each Tablet 1 TAB PO PRN Q6HRS PRN for PAIN for 2 Days, #8 TAB 0 Refills Prov: NELIDA GARCIA APRN 03/08/22 NELIDA GARCIA APRN Mar 08, 2022 14:19
[2022-03-08 14:20] LABS: BASO # 0.1 x10^3/uL (0.0-0.2); BASO % 1 % (0-3); EOS # 0.2 x10^3/uL (0.0-0.7); EOS % 3 % (0-3); HEMATOCRIT 40.5 % (36.0-47.0); HEMOGLOBIN 13.4 g/dL (12.0-15.5); LYMPH # 3.9 x10^3/uL (1.0-4.8); LYMPH % 40 % (24-48); MEAN CORPUSCULAR HEMOGLOBIN 27 pg (25-35); MEAN CORPUSCULAR HGB CONC 33 g/dL (31-37); MEAN CORPUSCULAR VOLUME 82 fL (79-100); MONO # 0.4 x10^3/uL (0.0-1.1); MONO % 5 % (0-9); NEUT % 52 % (31-73); PLATELET COUNT 311 x10^3/uL (140-400); RED BLOOD COUNT 4.94 x10^6/uL (3.50-5.40); RED CELL DISTRIBUTION WIDTH 15.2 % (11.5-14.5); WHITE BLOOD COUNT 9.6 x10^3/uL (4.0-11.0)
[2022-03-08 14:30] LABS: CALCIUM 8.9 mg/dL (8.5-10.1); CREATININE 0.8 mg/dL (0.6-1.0); GFR 75.9
[2022-03-08] MEDS ORDERED: MORPHINE SULFATE 2 MG/ML DISP.SYRIN. IV ONE (14:30)
[2022-03-08 14:36] LABS: ALBUMIN 3.8 g/dL (3.4-5.0); ALBUMIN/GLOBULIN RATIO 1.2 (1.0-1.7); MAGNESIUM 1.4 mg/dL (1.8-2.4); TOTAL BILIRUBIN 0.3 mg/dL (0.2-1.0); TOTAL PROTEIN 7.1 g/dL (6.4-8.2)
--- NOTE | 2022-03-08 14:51 | RAD ---
PQRS Compliance Statement: One or more of the following individualized dose reduction techniques were utilized for this examinat ion: 1. Automated exposure control 2. Adjustment of the mA and/or kV according to patient size 3. Use of iterative reconstruction technique Exam performed: CT scan of the abdomen and pelvis without contrast. Clinical Indication: Reason: constipation, gastroparesis hx, r/o obstruction / Spl. Instructions: / History: Date of Service: 03/08/2022 2:15 PM. Comparison: CT abdomen and pelvis from 03/07/2019 Technique: Contiguous helical acquisitions are obtained through the abdomen and pelvis without IV con trast. Sagittal and coronal reformatted images are obtained and reviewed. CT abdomen and pelvis findings: The lung bases are essentially clear. Visualized heart is normal. Lack of IV contrast limits evaluation of abdominal viscera, however the liver, spleen and pancreas ar e normal. Cholecystectomy. Both adrenal glands and bilateral kidneys are normal in size without hydro nephrosis or nephrolithiasis. Aorta is normal in caliber without aneurysm. Small and large bowel loop s are normal. The visualized portion of the appendix is unremarkable. Distal ureters are nondilated. Urinary bladder is partially decompressed. No intrapelvic masses are s een. There is a small 2.3 cm left ovarian cyst. No free or focal fluid collections are identified.Malik tej are normal.. Impression: No acute intra-abdominal or pelvic process detected. Electronically signed by: Piedad Reyes MD (03/08/2022 2:49 PM) [facility]
[2022-03-08] MEDS ORDERED: MAGNESIUM OXIDE 400 MG TABLET PO ONE (15:15)
[2022-03-08 15:54] LABS: BACTERIA,URINE 0 /HPF (0-FEW); CLARITY,URINE CLEAR; COLOR,URINE YELLOW; GLUCOSE,URINE NEG (NEG); NITRITE,URINE NEG (NEG); SQUAMOUS EPITHELIAL CELL,UR MANY /LPF; UROBILINOGEN,URINE 0.2 mg/dL (0.2 mg/dL); WBC,URINE 0 /HPF (0-4)
[2022-03-08] MEDS ORDERED: HYDR-2155 PO (16:08)
[2022-03-08] MEDS ORDERED: ONDA4TAB12 PO (16:08)
[2022-03-08 16:30] VITALS: BP 133/85
== END 2022-03-08 16:35 | disposition home or self-care (01) ==
LOC: ER 13:35
DX: R10.11 Right upper quadrant pain (principal); R11.2 Nausea with vomiting, unspecified; E11.9 Type 2 diabetes mellitus without complications; I10 Essential (primary) hypertension; E03.9 Hypothyroidism, unspecified; Z90.49 Acquired absence of other specified parts of digestive tract; Z90.710 Acquired absence of both cervix and uterus; Z88.0 Allergy status to penicillin; Z88.8 Allergy status to other drugs, medicaments and biological substances
CPT/HCPCS: 36415; 74176; 80053; 81001; 83690; 83735; 85025; 96361; 96374; 96375; 99284; J2270; J2765; J7030

== ENCOUNTER 2022-04-09 17:20 | Emergency (ER) | payer MEDICARE ==
[~2022-04-09] VITALS: Ht 157.5 cm; Wt 71.2 kg
[~2022-04-09 17:20] MED LIST changes: +HYDR-2155 PO
[2022-04-09 17:29] VITALS: BP 153/87
--- NOTE | 2022-04-09 17:56 | PHYS DOC ---
Past History Past Medical History: Anxiety, Depression, Diabetes, Hypertension, Hypothyroid, Other Additional Past Medical Histor: GASTROPARESIS Past Surgical History: Cholecystectomy, Hysterectomy, Tonsillectomy, Other Additional Past Surgical Histo: RIGHT EYE Smoking: Non-smoker Alcohol Use: None Drug Use: None General Adult EDM: Chief Complaint: CONGESTION HPI: HPI: Patient is a 52-year-old female who presents to the emergency department for nasal congestion/drainage, nonproductive cough, nausea, fever and shortness of breath. Patient reports that her symptoms started after going to a [employer] race. She reports taking Tylenol prior to arrival. She denies any shortness of breath, vomiting, loss of taste or smell. Review of Systems: Review of Systems: Constitutional: See HPI HENT: See HPI Respiratory: See HPI GI: See HPI Allergies: Allergies: Allergies Coded Allergies Type Severity Reaction Last Updated Verified Penicillins Allergy Intermediate Swelling 05/30/21 No ketorolac Allergy Intermediate tachycardia, anxiety 05/30/21 Yes tramadol Allergy Intermediate tachycardia, anxiety 05/30/21 Yes Physical Exam: PE: Constitutional: Well developed, well nourished, no acute distress, non-toxic appearance. [] HENT: Normocephalic, atraumatic, bilateral external ears normal, oropharynx moist, no oral exudates, erythematous oropharynx with postnasal drainage, cobblestoning appearance, no sinus tenderness with palpation, nose normal. [] Eyes: PERRL, EOMI, conjunctiva normal, no discharge. [] Neck: Normal range of motion, no tenderness, supple, no stridor. [] Cardiovascular:Heart rate regular rhythm, no murmur [] Lungs & Thorax: Bilateral breath sounds clear to auscultation [] Abdomen: Bowel sounds normal, soft, no tenderness, no masses, no pulsatile masses. [] Skin: Warm, dry, no erythema, no rash. [] Back: No tenderness, normal range of motion Extremities: No tenderness, no cyanosis, no clubbing, ROM intact, no edema. [] Neurologic: Alert and oriented X 3, normal motor function, normal sensory function, no focal deficits noted. [] Psychologic: Affect normal, judgement normal, mood normal. [] Current Patient Data: Vital Signs: Vital Signs Date Time Temp Pulse Resp B/P (MAP) Pulse Ox O2 Delivery O2 Flow Rate FiO2 04/09/22 17:29 99.4 78 16 153/87 (109) 98 Room Air EKG: EKG: [] Radiology/Procedures: Radiology/Procedures: []PROCEDURE: CHEST PA & LATERAL Exam: Chest 2 views INDICATION: Short of air, cough, congestion TECHNIQUE: Frontal and lateral views the chest Comparisons: 08/28/2018 FINDINGS: The cardiomediastinal silhouette and pulmonary vessels are within normal limits. The lung and pleural spaces are clear. IMPRESSION: No acute cardiopulmonary process. Electronically signed by: Blanca Jesus MD (04/09/2022 6:18 PM) [facility] DICTATED AND SIGNED BY: BLANCA JESUS MD DATE: 04/09/221816 CC: CHELY HUITRON MD; NELIDA GARCIA APRN ~ Heart Score: C/O Chest Pain: N/A Risk Factors: Risk Factors: DM, Current or recent (<one month) smoker, HTN, HLP, family history of CAD, obesity. Risk Scores: Score 0 - 3: 2.5% MACE over next 6 weeks - Discharge Home Score 4 - 6: 20.3% MACE over next 6 weeks - Admit for Clinical Observation Score 7 - 10: 72.7% MACE over next 6 weeks - Early Invasive Strategies Course & Med Decision Making: Course & Med Decision Making Pertinent Labs and Imaging studies reviewed. (See chart for details) [] Patient presents to the emergency department for multiple complaints including nasal congestion, cough, fever, nausea and shortness of breath. Patient will be tested for influenza and COVID and have a chest x-ray to rule out pneumonia. Patient is positive for COVID-19. She was educated on symptomatic treatment. Discharged home with an albuterol inhaler for shortness of breath and cough medication. Patient's vital signs are stable. I discussed with patient all findings and diagnostic testing as well as the need to follow- up with PCP for further evaluation and treatment or return to the ER if any new or worsening symptoms. Strict return precautions were also discussed at length. Patient voiced understanding and agreement with the plan. Patient is hemodynamically stable at the time of disposition. Dragon Disclaimer: Dragon Disclaimer: This electronic medical record was generated, in whole or in part, using a voice recognition dictation system. Departure Departure: Impression: Primary Impression: COVID-19 Disposition: HOME / SELF CARE / HOMELESS Condition: GOOD Referrals: CHELY HUITRON MD (PCP) Patient Instructions: Cough, Adult Additional Instructions: You are seen in the emergency department for multiple complaints. You are positive for COVID-19. For your pain or fevers take Tylenol and ibuprofen. Increase your fluids and rest. For nasal congestion I would advise you to use Mucinex and Flonase intranasal steroid. You are being discharged home with an albuterol inhaler that you can use when you feel short of breath. You are also being discharged home with cough medication. Follow-up with your primary care provider within a week. You can purchase a pulse oximeter monitor your oxygen saturations at home. Return to the emergency department if they drop below 90%. Please self isolate per CDC guidelines. Return to the emergency department if you develop chest pain, shortness of breath, high fevers refractory to treatment, weakness, intractable nausea or vomiting. You have been tested for or diagnosed with COVID-19. It is an infection caused by a new type of coronavirus. COVID-19 will cause cold-like or mild flu symptoms in most. It can cause more severe symptoms like problems breathing in some. There is no treatment for COVID-19. The body will clear the infection over time. Self-care will help to ease discomfort. Steps to Take: Self-Care Rest as needed. Healthy habits may help you feel better. Steps include: Choose healthy foods including fruits and vegetables. Drink water throughout the day. Get plenty of sleep each night. If you smoke, try to quit. It may ease breathing. Avoid alcohol. Keep Others Healthy The virus can spread to others. Droplets are released every time you sneeze or cough. The droplets can get into the mouth, nose, or eyes of people near you and lead to infection. To lower the chances of spreading COVID-19 to others: Stay at home until your doctor has said it is safe to leave. If you tested positive this will mean staying isolated until both of the following are true: At least 7 days have passed since the start of illness. You are free of fever for at least 72 hours without the use of medicine. During this time: - Avoid public areas, events, or transportation. Do not return to work or school until your doctor has said it is safe to do so. - Call ahead if you need to go to a medical center. Let them know you may have COVID-19. It will help them guide you where to go. They may also ask you to wear a facemask when you come to the office. - If you call for emergency medical services, let them know you may have COVID- 19. While at home: - Try to avoid close contact with others. Stay about 6 feet away. - If possible, spend most of your time in a separate room from others. - Use a face mask if you will be in close contact with others such as sharing a room or vehicle. - Have someone wipe down common surfaces in the home. Use household wireless network engineer every day on areas like doorknobs, counters, or sinks. - Cough or sneeze into a tissue. Throw the tissue away right after use. If a tissue is not available, cough or sneeze into your elbow. - Wash your hands often. Wash them after sneezing or coughing. Use soap and water and wash for at least 20 seconds. Alcohol based hand pool cleaner can be used if soap and water is not available. - Do not prepare food for others. Avoid sharing personal items like forks, spoons, or toothbrushes. - Avoid close contact with pets while you are sick. There is no evidence of the virus passing to pets. This is a safety step until more is known about this virus. Isolation can be frustrating. Social interaction can help. Keep in touch with friends and family through phone and tech options. You can still interact with others in your home, just keep a safe distance of about 6 feet. Follow-up: Your doctors office will check in with you to see if there are any changes in your health. You may be asked to keep track of symptoms to share with them. They will also let you know when you are clear to be in public again. Problems to Look Out For: Contact your doctor if your recovery is not going as you expect. Get emergency care if you have problems such as: - Trouble breathing - Nonstop chest pain or pressure - Changes in awareness, confusion, or problems waking - Lips or face have bluish color - Worsening of symptoms If you think you have an emergency, call for emergency medical services right away. As taken from [email or web address] Scripts Benzonatate (BENZONATATE) 100 Mg Capsule 1 CAP PO TID for cough for 7 Days, #21 CAP 0 Refills Prov: NELIDA GARCIA APRN 04/09/22 Albuterol Sulfate (PROAIR HFA INHALER) 8.5 Gm Hfa.aer.ad 1 PUFF INH PRN Q6HRS PRN for SHORTNESS OF BREATH for 7 Days, #1 EACH 0 Refills Prov: NELIDA GARCIA APRN 04/09/22 NELIDA GARCIA APRN April 09, 2022 17:56
[2022-04-09 18:11] LABS: INFLUENZA A PATIENT NEGATIVE (NEGATIVE); INFLUENZA B PATIENT NEGATIVE (NEGATIVE)
--- NOTE | 2022-04-09 18:20 | RAD ---
Exam: Chest 2 views INDICATION: Short of air, cough, congestion TECHNIQUE: Frontal and lateral views the chest Comparisons: 08/28/2018 FINDINGS: The cardiomediastinal silhouette and pulmonary vessels are within normal limits. The lung and pleural spaces are clear. IMPRESSION: No acute cardiopulmonary process. Electronically signed by: Josep Ojeda MD (04/09/2022 6:18 PM) [facility]
[2022-04-09] MEDS ORDERED: ALBU2.5V8 INH (18:21)
[2022-04-09] MEDS ORDERED: BENZ-8 PO (18:21)
== END 2022-04-09 18:30 | disposition home or self-care (01) ==
LOC: ER 17:20
DX: U07.1 COVID-19 (principal); E11.9 Type 2 diabetes mellitus without complications; I10 Essential (primary) hypertension; E03.9 Hypothyroidism, unspecified; Z88.0 Allergy status to penicillin; Z88.8 Allergy status to other drugs, medicaments and biological substances
CPT/HCPCS: 71046; 87428; 99284